=== PATIENT | male | born 1960 | race Caucasian/White ===

== ENCOUNTER 2016-03-25 17:09 | Inpatient (IN) | payer OTHER ==
[~2016-03-25] VITALS: Ht 180.3 cm; Wt 69.8 kg
[~2016-03-25 17:09] MED LIST: SPIR25TA PO
[2016-03-25 17:12] VITALS: BP 105/63; PULSE 101; RESP 20; TEMP 98.7; O2SAT 97
[2016-03-25] MEDS ORDERED: ONDANSETRON HCL 4 MG/2 ML VIAL IV PUSH ONE (17:30)
--- NOTE | 2016-03-25 17:40 | PD ---
HPI Chief Complaint: Edema Time Seen by Provider: 17:30 Travel History International Travel<30 days: No Contact w/Intl Traveler<30days: No Traveled to known affect area: No History of Present Illness HPI 55-year-old white male presents to emergency department by EMS for evaluation of dyspnea and increasing abdominal girth. The patient has a history of malignant ascites. He was just recently admitted to the hospital back on and was discharged on 03/14/16. The patient had a paracentesis which they removed 12 L of fluid. Fluid revealed mesothelial cells. Endoscopy/ colonoscopy revealed no source of a cytology. Patient returns today because of increasing shortness of breath and abdominal girth. He states that over the past week he has becoming increasingly short of breath, nauseous and has been vomiting. He states that he feels that if he were to have another paracentesis his symptoms would resolve. The underlying malignancy/source of his ascites is not quite been determined at this time. The patient states that he had been in his normal health up until 6 months ago when he started developing as ascites. He denies any alcohol, drug abuse or tobacco. He denies any fever or chills. No chest pain. No urinary symptoms. No stooling issues. No melena or hematochezia. PFSH Past Medical History Narrative Medical Malignant ascites, thrombocytopenia, history of renal failure, Anxiety: No Depression: No Cancer: No Cardiovascular Problems: No Endocrine: No Gastrointestinal Disorders: Yes (ASCITES) Genitourinary: No Immune Disorder: No Psychiatric: No Reproductive: No Respiratory: Yes Tetanus Vaccination: Unknown Past Surgical History Surgical History: No Previous Surgery Other Surgery: No Social History Alcohol Use: No (DENIES) Tobacco Use: Yes (1PPD) Substance Use: No Allergies-Medications (Allergen,Severity, Reaction): Coded Allergies: No Known Allergies (Unverified , 03/07/16) Reported Meds & Prescriptions Reported Meds & Active Scripts Active No Active Prescriptions or Reported Medications Review of Systems Except as stated in HPI: all other systems reviewed are Neg General / Constitutional: No: Fever, Chills Eyes: No: Blurred Vision, Photophobia HENT: No: Headaches, Neck Pain Cardiovascular: Positive: Tachycardia, No: Chest Pain or Discomfort Respiratory: Positive: Shortness of Breath, No: Cough Gastrointestinal: Positive: Nausea, Vomiting, Abdominal Pain, Indigestion, Loss of Appetite Genitourinary: No: Dysuria, Hematuria Musculoskeletal: No: Myalgias, Limited ROM Skin: No Rash, No Lesions Neurologic: Positive: Weakness, No: Headache Psychiatric: No: Anxiety, Suicidal Ideations Physical Exam Narrative GENERAL: Well-developed, well-nourished in no apparent distress. Nontoxic appearing. Chronically ill-appearing, emaciated, large protuberant abdomen HEAD: Normocephalic, atraumatic. EYES: Pupils equal round and reactive. Extraocular motions intact. No scleral icterus. No injection or drainage. ENT: Nose clear. Throat without erythema, tonsillar hypertrophy or exudate. Uvula midline. Airway patent. NECK: Trachea midline. Supple, nontender, moves head freely. No central bony tenderness or spasm. CARDIOVASCULAR: Regular tachycardic rate and rhythm without murmurs, gallops, or rubs. RESPIRATORY: Few scattered rhonchi. Decreased breath sounds at the lower bases. No Rales. GASTROINTESTINAL: Abdomen soft, distended and tense. Positive fluid wave. Unable to assess hepatosplenomegaly due to large amount of ascites. No guarding. EXTREMITIES: No clubbing, cyanosis. Positive +1-to pedal edema. No joint tenderness. BACK: Nontender without deformity. No flank tenderness. NEUROLOGICAL: Awake, alert and oriented x 3 .Cranial nerves grossly intact. Motor and sensory grossly within normal limits. Normal speech. Data Data Last Documented VS Vital Signs Date Time Temp Pulse Resp B/P Pulse Ox O2 Delivery O2 Flow Rate FiO2 03/25/16 17:12 98.7 101 20 105/63 97 Orders Electrocardiogram (03/25/16 17:18) Complete Blood Count With Diff (03/25/16 17:18) Comprehensive Metabolic Panel (03/25/16 17:18) B-Type Natriuretic Peptide (03/25/16 17:18) Prothrombin Time / Inr (Pt) (03/25/16 17:18) Act Partial Throm Time (Ptt) (03/25/16 17:18) Lipase (03/25/16 17:18) Ua Includes Microscopic (03/25/16 17:18) Magnesium (Mg) (03/25/16 17:18) Ammonia (03/25/16 17:18) Chest, Single Ap (03/25/16 17:18) Iv Access Insert/Monitor (03/25/16 17:18) Ondansetron Inj (Zofran Inj) (03/25/16 17:30) Calcium Gluconate Inj (Calcium Gluconate (03/25/16 18:30) Insulin Human Regular Inj (Novolin R Inj (03/25/16 18:30) Dextrose 50% In Shabana (Vial) Inj (D50w (Vi (03/25/16 18:30) Sodium Polysty Sulfate Liq (Kayexalate L (03/25/16 18:30) Ceftriaxone Inj (Rocephin Inj) (03/25/16 18:30) Lactic Acid (03/25/16 18:24) Ceftriaxone Inj (Rocephin Inj) (03/25/16 18:30) Admit To Inpatient (03/25/16 ) Vital Signs (Adult) Q4H (03/25/16 18:25) Activity Oob With Assistance (03/25/16 18:25) ^ Hi Lift Operator / Telemetry .CONTINUOUS (03/25/16 18:25) Intake + Output VIDYA.QSHIFT (03/25/16 18:25) Diet Heart Healthy (03/25/16 Dinner) Sodium Chloride 0.9% Flush (Ns Flush) (03/25/16 18:30) Sodium Chloride 0.9% Flush (Ns Flush) (03/25/16 21:00) Acetaminophen (Tylenol) (03/25/16 18:30) Ondansetron Inj (Zofran Inj) (03/25/16 18:30) Prochlorperazine Supp (Compazine Supp) (03/25/16 18:30) Bisacodyl Supp (Dulcolax Supp) (03/25/16 18:30) Magnesium Hydroxide Liq (Milk Of Magnesi (03/25/16 18:30) Sennosides (Senokot) (03/25/16 18:30) Basic Metabolic Panel (Bmp) (03/26/16 06:00) Complete Blood Count With Diff (03/26/16 06:00) Resp Oxygen Gerardo C Titrat 1-4 L (03/25/16 ) Pt Request For Service (03/25/16 18:25) Case Management Consult (03/25/16 18:25) Scd Bilateral/Knee High VIDYA.BID (03/25/16 18:25) Jef Bilateral/Knee High VIDYA.QSHIFT (03/25/16 18:25) Inpatient Certification (03/25/16 ) Admit Order (Ed Use Only) (03/25/16 18:26) Us Guided Abd Paracentesis (03/25/16 ) Peritoneal Cell Count + Diff (03/25/16 18:27) Total Protein Peritoneal Fluid (03/25/16 18:27) Albumin, Peritoneal Fluid (03/25/16 18:27) Glucose, Peritoneal Fluid (03/25/16 18:27) Ldh, Peritoneal Fluid (03/25/16 18:27) Amylase, Peritoneal Fluid (03/25/16 18:27) Fluid Culture And Gram Stain (03/25/16 18:27) Total Protein (03/25/16 18:27) Ldh Serum (03/25/16 18:27) Cbc No Diff, Includes Plts (03/25/16 18:27) Act Partial Throm Time (Ptt) (03/25/16 18:27) Labs Laboratory Tests Test 03/25/16 17:25 White Blood Count 18.8 TH/MM3 Red Blood Count 4.95 MIL/MM3 Hemoglobin 15.3 GM/DL Hematocrit 44.7 % Mean Corpuscular Volume 90.3 FL Mean Corpuscular Hemoglobin 30.9 PG Mean Corpuscular Hemoglobin 34.2 % Concent Red Cell Distribution Width 16.3 % Platelet Count 770 TH/MM3 Mean Platelet Volume 7.8 FL Neutrophils (%) (Auto) 95.0 % Lymphocytes (%) (Auto) 1.5 % Monocytes (%) (Auto) 3.2 % Eosinophils (%) (Auto) 0.0 % Basophils (%) (Auto) 0.3 % Neutrophils # (Auto) 17.8 TH/MM3 Lymphocytes # (Auto) 0.3 TH/MM3 Monocytes # (Auto) 0.6 TH/MM3 Eosinophils # (Auto) 0.0 TH/MM3 Basophils # (Auto) 0.0 TH/MM3 CBC Comment AUTO DIFF Differential Total Cells 100 Counted Neutrophils % (Manual) 88 % Band Neutrophils % 4 % Lymphocytes % 1 % Monocytes % 6 % Neutrophils # (Manual) 17.5 TH/MM3 Myelocytes 1 % Differential Comment FINAL DIFF MANUAL Platelet Estimate HIGH Platelet Morphology Comment NORMAL Red Cell Morphology Comment NORMAL Prothrombin Time 11.2 SEC Prothromb Time International 1.0 RATIO Ratio Activated Partial 29.4 SEC Thromboplast Time Sodium Level 126 MEQ/L Potassium Level 6.6 MEQ/L Chloride Level 90 MEQ/L Carbon Dioxide Level 20.5 MEQ/L Anion Gap 16 MEQ/L Blood Urea Nitrogen 71 MG/DL Creatinine 1.95 MG/DL Estimat Glomerular Filtration 36 ML/MIN Rate Random Glucose 58 MG/DL Calcium Level 8.1 MG/DL Magnesium Level 2.1 MG/DL Total Bilirubin 0.3 MG/DL Aspartate Amino Transf 18 U/L (AST/SGOT) Alanine Aminotransferase 16 U/L (ALT/SGPT) Alkaline Phosphatase 114 U/L Ammonia 11 MCMOL/L Total Protein 6.4 GM/DL Albumin 1.9 GM/DL Lipase 78 U/L [facility] Medical Decision Making Medical Screen Exam Complete: Yes Emergency Medical Condition: Yes Medical Record Reviewed: Yes Interpretation(s) Chest x-ray: Patient has an elevated right hemidiaphragm. There is no acute failure or infiltrate. Positive volume loss. Laboratory Tests Test 03/25/16 17:25 White Blood Count 18.8 TH/MM3 Red Blood Count 4.95 MIL/MM3 Hemoglobin 15.3 GM/DL Hematocrit 44.7 % Mean Corpuscular Volume 90.3 FL Mean Corpuscular Hemoglobin 30.9 PG Mean Corpuscular Hemoglobin 34.2 % Concent Red Cell Distribution Width 16.3 % Platelet Count 770 TH/MM3 Mean Platelet Volume 7.8 FL Neutrophils (%) (Auto) 95.0 % Lymphocytes (%) (Auto) 1.5 % Monocytes (%) (Auto) 3.2 % Eosinophils (%) (Auto) 0.0 % Basophils (%) (Auto) 0.3 % Neutrophils # (Auto) 17.8 TH/MM3 Lymphocytes # (Auto) 0.3 TH/MM3 Monocytes # (Auto) 0.6 TH/MM3 Eosinophils # (Auto) 0.0 TH/MM3 Basophils # (Auto) 0.0 TH/MM3 CBC Comment AUTO DIFF Differential Total Cells 100 Counted Neutrophils % (Manual) 88 % Band Neutrophils % 4 % Lymphocytes % 1 % Monocytes % 6 % Neutrophils # (Manual) 17.5 TH/MM3 Myelocytes 1 % Differential Comment FINAL DIFF MANUAL Platelet Estimate HIGH Platelet Morphology Comment NORMAL Red Cell Morphology Comment NORMAL Prothrombin Time 11.2 SEC Prothromb Time International 1.0 RATIO Ratio Activated Partial 29.4 SEC Thromboplast Time Sodium Level 126 MEQ/L Potassium Level 6.6 MEQ/L Chloride Level 90 MEQ/L Carbon Dioxide Level 20.5 MEQ/L Anion Gap 16 MEQ/L Blood Urea Nitrogen 71 MG/DL Creatinine 1.95 MG/DL Estimat Glomerular Filtration 36 ML/MIN Rate Random Glucose 58 MG/DL Calcium Level 8.1 MG/DL Magnesium Level 2.1 MG/DL Total Bilirubin 0.3 MG/DL Aspartate Amino Transf 18 U/L (AST/SGOT) Alanine Aminotransferase 16 U/L (ALT/SGPT) Alkaline Phosphatase 114 U/L Ammonia 11 MCMOL/L Total Protein 6.4 GM/DL Albumin 1.9 GM/DL Lipase 78 U/L Differential Diagnosis MDM: High Differential diagnosis: Bowel obstruction, ascites, liver failure, renal failure , electrolyte abnormality, pneumonia, pancreatitis, UTI Narrative Course IV access is obtained. Routine laboratory tests sent for analysis. Patient is on 2 L of O2 to maintain a sat of 95. Patient's chart has been reviewed. Patient's potassium 6.6. He is given 1 amp of calcium gluconate IV, 10 units of regular insulin IV, 25 g of glucose IV, 15 mL's of Kayexalate by mouth. The case has been discussed with Dr. Zhao who has agreed to full admit the patient to [facility] telemetry. She is aware of the laboratory abnormalities as well as concern for potential peritonitis. She has requested that the patient be started on Rocephin 1 g. She will also like a venous lactate. We have discussed the patient's criteria for sepsis but he does not have the typical etiology of sepsis. We will hold off on fluid bolus at this time. I suspect fluid restriction would be most appropriate for this treatment. This is dyspnea, hyperkalemia, acute renal failure, ascites Diagnosis Primary Impression: Dyspnea Qualified Code: R06.02 - Shortness of breath Additional Impressions: Hyperkalemia Ascites Qualified Code: R18.0 - Malignant ascites Hyponatremia CHELY (acute kidney injury) Admitting Information Admitting Physician Requests: Admit Scripts No Active Prescriptions or Reported MedPerry Cosby Mar 25, 2016 17:40
[2016-03-25 17:41] LABS: AUTOMATED NEUTROPHIL # 17.8 TH/MM3 (1.8-7.7); BASOPHIL % 0.3 % (0.0-2.0); HEMATOCRIT 44.7 % (39.0-51.0); LYMPH % 1.5 % (9.0-44.0); LYMPHOCYTE # 0.3 TH/MM3 (1.0-4.8); MEAN CELL VOLUME 90.3 FL (80.0-100.0); MEAN CORPUSCULAR HEMOGLOBIN 30.9 PG (27.0-34.0); MEAN CORPUSCULAR HGB CONC 34.2 % (32.0-36.0); MONO % 3.2 % (0.0-8.0); PLATELET COUNT 770 TH/MM3 (150-450); RED BLOOD COUNT 4.95 MIL/MM3 (4.50-5.90); RED CELL DISTRIBUTION WIDTH 16.3 % (11.6-17.2); WHITE BLOOD COUNT 18.8 TH/MM3 (4.0-11.0)
[2016-03-25 17:44] LABS: HEMO FLAGS AUTO DIFF
[2016-03-25 17:48] LABS: APTT (PATIENT) 29.4 SEC (24.3-30.1); PROTHROMBIN TIME - PATIENT 11.2 SEC (9.8-11.6)
[2016-03-25 18:11] LABS: BANDS 4 % (0-6); MYELOCYTES 1 % (0-0); NEUTROPHIL # MANUAL DIFF 17.5 TH/MM3 (1.8-7.7); POLYS (SEG NEUTROPHILS) 88 % (16-70); WBC DIFF SAMPLE 100
[2016-03-25 18:12] LABS: PLATELET ESTIMATE SMEAR HIGH (NORMAL); PLATELET MORPHOLOGY NORMAL (NORMAL); SCAN/DIFF FINAL DIFF MANUAL
[2016-03-25 18:13] LABS: ALKALINE PHOSPHATASE 114 U/L (45-117); ALT (GPT) 16 U/L (12-78); ANION GAP 16 MEQ/L (5-15); AST (GOT) 18 U/L (15-37); BICARBONATE 20.5 MEQ/L (21.0-32.0); BLOOD UREA NITROGEN 71 MG/DL (7-18); CHLORIDE 90 MEQ/L (98-107); GLOMERULAR FILTRATION RATE 36 ML/MIN (>89); MAGNESIUM 2.1 MG/DL (1.5-2.5); SODIUM (NA) 126 MEQ/L (136-145); TOTAL BILIRUBIN ADULT 0.3 MG/DL (0.2-1.0)
[2016-03-25 18:16] LABS: POTASSIUM 6.6 MEQ/L (3.5-5.1)
[2016-03-25] MEDS ORDERED: ACETAMINOPHEN 325 MG TAB PO PRN (18:30)
[2016-03-25] MEDS ORDERED: INSULIN HUMAN REGULAR 1,000 UNITS/10 ML VIAL IV PUSH ONE ×2 (18:30→22:30)
[2016-03-25] MEDS ORDERED: PROCHLORPERAZINE 25 MG SUPP PR PRN (18:30)
[2016-03-25] MEDS ORDERED: MAGNESIUM HYDROXIDE SUSP 30 ML CUP PO PRN (18:30)
[2016-03-25] MEDS ORDERED: SODIUM CHLORIDE 0.9% FLUSH 5 ML FLUSH FLUSH PRN (18:30)
[2016-03-25] MEDS ORDERED: CALCIUM GLUCONATE 10% 1 GM/10 ML VIAL IV PUSH ONE (18:30)
[2016-03-25] MEDS ORDERED: cefTRIAXone INJ 1,000 MG in SODIUM CHLORIDE 0.9% INJ 100 ML IV ONE (18:30)
[2016-03-25] MEDS ORDERED: BISACODYL 10 MG SUPP PR PRN (18:30)
[2016-03-25] MEDS ORDERED: SENNOSIDES 8.6 MG TAB PO PRN (18:30)
[2016-03-25] MEDS ORDERED: DEXTROSE 50% IN WATER 50 ML VIAL(D50) IV PUSH ONE ×2 (18:30→22:30)
[2016-03-25] MEDS ORDERED: SODIUM POLYSTYRENE SULFONATE SUSP 15 GM/60 ML CUP PO ONE (18:30)
--- NOTE | 2016-03-25 18:34 | RADRPT ---
EXAM DATE/TIME: 03/25/2016 17:34 [facility] COMPARISON: CT THORAX W/O CONTRAST, March 09, 2016, 0:22. CHEST SINGLE AP, March 08, 2016, 10:14. INDICATIONS : Chest and abdominal pain. MEDICAL HISTORY : Ascites. Abdominal hernia. SURGICAL HISTORY : Paracentesis. Thoracentesis. ENCOUNTER: Initial ACUITY: 4 - 6 days PAIN SCORE: 10/10 LOCATION: Bilateral lower chest FINDINGS: There is improvement in the aeration of the right lung base and previously seen consolidation has bas ically resolved. Minimal infiltrate remains. The rest of the examination has not significantly change d. CONCLUSION: Almost complete resolution of the previously seen the right lung base consolidation. Gabrielle Tipton MD on March 25, 2016 at 18:30 Board Certified Radiologist. This report was verified electronically.
[2016-03-25] MEDS ORDERED: MORPHINE SULFATE 4 MG/ML INJ IV PUSH ONE (18:45)
[2016-03-25] MEDS: SODIUM CHLORIDE 0.9% FLUSH 5 ML FLUSH FLUSH SCH (19:31)
[2016-03-25 19:33] VITALS: BP 77/52; PULSE 128; RESP 20; TEMP 98; O2SAT 96
[2016-03-25] MEDS: ONDANSETRON HCL 4 MG/2 ML VIAL IVP PRN (20:44)
[2016-03-25] MEDS ORDERED: VANCOMYCIN INJ 1,050 MG in SODIUM CHLOR 0.9% 250 ML INJ 250 ML IV SCH (20:45)
[2016-03-25] MEDS ORDERED: Vancomycin Consult Pharmacy 1 EA OTHER SCH (20:45)
[2016-03-25] MEDS ORDERED: SODIUM CHLOR 0.9% 250 ML INJ 250 ML IV ONE (20:45)
[2016-03-25] MEDS ORDERED: SODIUM CHLOR 0.9% 1000 ML INJ 1,000 ML IV SCH (20:45)
[2016-03-25] MEDS ORDERED: ALBUMIN HUMAN 25% 25 GM/100 ML BAGP IV ONE (21:00)
[2016-03-25 21:06] VITALS: O2SAT 96
[2016-03-25 21:15] VITALS: BP 96/71; PULSE 108; RESP 18; O2SAT 97
--- NOTE | 2016-03-25 21:36 | HHI.HP ---
[facility] Service [facility] Primary Care Physician No Primary Care Physician Admission Diagnosis dyspnea, hyperkalemia,ARF, ascites Diagnoses: (1) Severe sepsis (2) Hyponatremia (3) Hyperkalemia (4) Increased anion gap metabolic acidosis (5) CHELY (acute kidney injury) (6) Thrombocytosis (7) Hypoglycemia (8) Severe protein-calorie malnutrition (9) Hematemesis Chief Complaint: abdominal distention and shortness of breath Travel History International Travel<30 Days: No Contact w/Intl Traveler <30 Da: No Traveled to Known Affected Are: No History of Present Illness This is a 55-year-old male with past medical history of ascites for which he has gotten multiple ultrasound-guided paracentesis with drainage of large amount of ascites for about the past 6 months. He was just discharged March 14 (admitted on 03/07) from the hospital where a diagnostic paracentesis was performed showing atypical cells which appeared to represent reactive mesothelial cells. The patient presented to the emergency department via EMS complaining of shortness of breath and increasing abdominal girth. His symptoms have been getting progressively worse over the last week and haven't been accompanied by nausea and vomiting. He is complaining of severe pain but states it is located in his back in the middle region that is associated with increasing abdominal girth. The underlying source of his malignant ascites has not been determined yet. While visiting the patient, he had an episode of vomiting when small amount of dark blood noted in his emesis. He complains of nausea, vomiting, back pain, severe abdominal distention accompanied by shortness of breath. He denies fever and also denies diarrhea though the nurse in the ER tells us that he had episodes of diarrhea since arriving here. He is significantly hypotensive in the ER with a blood pressure of 77/52 requiring IV albumin and fluids. He is also tachycardic and WBC is elevated at 18.8 with neutrophilia. Lactic acid elevated at 3.1. Potassium 6.6 on admission and sodium is low at 126. Anion gap is elevated at 16 and he shows acute kidney injury with BUN of 71, creatinine 1.95, estimated GFR 36. Hypoglycemia noted with glucose initially 58 and 48 on repeat BMP. Patient BNP 1846. Review of Systems Constitutional: DENIES: Fever Respiratory: COMPLAINS OF: Shortness of breath, DENIES: Cough Cardiovascular: COMPLAINS OF: Dyspnea on Exertion, Lower Extremity Edema Gastrointestinal: COMPLAINS OF: Diarrhea (patient denies, nurses report he's had diarrhea in ER today), Nausea, Vomiting Musculoskeletal: COMPLAINS OF: Muscle aches, Back pain Other GENITOURINARY: Diminished urinary output, no dysuria All systems reviewed and are otherwise negative . Past Family Social History Past Medical History Malignant ascites . Past Surgical History Multiple ultrasound-guided paracentesis . Reported Medications Reported Meds & Active Scripts Active No Active Prescriptions or Reported Medications Allergies: Coded Allergies: No Known Allergies (Unverified , 03/07/16) Active Ordered Medications Current Medications Ondansetron HCl (Zofran Inj) 4 mg ONCE ONCE IV PUSH Last administered on 03/25at 17:37; Start 03/25/16 at 17:30; Stop 03/25/16 at 17:31; Status DC Calcium Gluconate (Calcium Gluconate Inj) 1 gm ONCE ONCE IV PUSH Last administered on 03/25/16at 18:30; Start 03/25/16 at 18:30; Stop 03/25/16 at 18 :31; Status DC Insulin Human Regular (NovoLIN R INJ) 10 units ONCE ONCE IV PUSH Last administered on 03/25/16at 18:29; Start 03/25/16 at 18:30; Stop 03/25/16 at 18 :31; Status DC Dextrose (D50w (Vial) Inj) 25 ml ONCE ONCE IV PUSH Last administered on at 18:30; Start 03/25/16 at 18:30; Stop 03/25/16 at 18:31; Status DC Sodium Polystyrene Sulfonate 15 gm 15 gm ONCE ONCE PO Last administered on at 18:30; Start 03/25/16 at 18:30; Stop 03/25/16 at 18:31; Status DC Ceftriaxone Sodium 2000 mg/ Sodium Chloride 100 ml @ 200 mls/hr Q12H IV ; Start 03/26/16 at 06:00 Ceftriaxone Sodium/Sodium Chloride (Rocephin Inj/NS Inj) 100 ml @ 200 mls/hr ONCE ONCE IV Last administered on 03/25/16at 19:20; Start 03/25/16 at 18:30; Stop 03/25/16 at 18:59; Status DC IV Flush (NS Flush) 2 ml UNSCH PRN FLUSH FLUSH AFTER USING IV ACCESS; Start at 18:30 IV Flush (NS Flush) 2 ml BID FLUSH Last administered on 03/25/16at 19:31; Start 03/25/16 at 21:00 Acetaminophen (Tylenol) 650 mg Q4H PRN PO TEMP > 100.4; Start 03/25/16 at 18: 30 Ondansetron HCl (Zofran Inj) 4 mg Q6H PRN IVP NAUSEA OR VOMITING Last administered on 03/25/16at 20:44; Start 03/25/16 at 18:30 Prochlorperazine (Compazine Supp) 25 mg Q12H PRN [place] NAUSEA OR VOMITING; Start 03/25/16 at 18:30 Bisacodyl (Dulcolax Supp) 10 mg DAILY PRN [place] CONSTIPATION; Start 03/25/16 at 18:30 Magnesium Hydroxide (Milk Of Magntristan Liq) 30 ml Q12H PRN PO CONSTIPATION; Start 03/25/16 at 18:30 Sennosides (Senokot) 17.2 mg Q12H PRN PO CONSTIPATION; Start 03/25/16 at 18:30 Morphine Sulfate (Morphine Inj) 4 mg ONCE ONCE IV PUSH Last administered on at 19:21; Start 03/25/16 at 18:45; Stop 03/25/16 at 18:46; Status DC Albumin Human 50 gm 50 gm ONCE ONCE IV Last administered on 03/25/16at 21:14; Start 03/25/16 at 21:00; Stop 03/25/16 at 21:01; Status DC Sodium Chloride 250 ml @ 250 mls/hr BOLUS ONCE IV Last administered on at 21:14; Start 03/25/16 at 20:45; Stop 03/25/16 at 21:44; Status DC Sodium Chloride 1,000 ml @ 84 mls/hr [id number] IV Last administered on at 21:14; Start 03/25/16 at 20:45 Vancomycin HCl 1050 mg/Sodium Chloride 260.5 ml @ 250 mls/hr Q12H IV ; Start 03/25/16 at 20:45; Status UNV Pharmacy Profile Note 0 ml @ 0 mls/hr UNSCH OTHER ; Start 03/25/16 at 20:45 Vancomycin HCl/ Sodium Chloride (Vancomycin Inj/ NS 250 ml Inj) 250 ml @ 250 mls/hr Q24H IV Last administered on 03/25/16at 21:54; Start 03/25/16 at 21:00 Miscellaneous Information SPECIFIC LAB TO BE ... ONCE ONCE XX ; Start 03/28 at 20:45; Stop 03/28/16 at 20:46 . Family History Father in MVA Mother with hypertension Denies family history of cancer, diabetes, or heart disease Social History Tobacco: Still smokes Alcohol: Denies Illicit Drugs: Denies Physical Exam Vital Signs Vital Signs Date Time Temp Pulse Resp B/P Pulse Ox O2 Delivery O2 Flow Rate FiO2 03/25/16 21:15 108 18 96/71 97 Nasal Cannula 3 03/25/16 21:06 96 Nasal Cannula 3.00 03/25/16 19:33 98.0 128 20 77/52 96 Nasal Cannula 3 03/25/16 17:12 98.7 101 20 105/63 97 Physical Exam GENERAL: This is a patient who is severely cachectic with bitemporal wasting. SKIN: No rashes, ecchymoses or lesions. Cool and dry. HEAD: Atraumatic. Normocephalic. EYES: No scleral icterus. No injection or drainage. ENT: Nose without bleeding, purulent drainage. NECK: Trachea midline. No JVD or lymphadenopathy. CARDIOVASCULAR: Regular rate and rhythm without murmurs, gallops, or rubs. Dependent edema noted right paraspinal thoracic and lumbar areas. 2-3+ edema ankles and feet. RESPIRATORY: No wheezes, rales. Right upper lobe with expiratory rhonchi; otherwise lungs clear to auscultation in other giles. GASTROINTESTINAL: Abdomen mildly tender with palpation, significantly distended. No guarding. Vomiting with dark blood noted in the emesis while at bedside. MUSCULOSKELETAL: Extremities without clubbing, cyanosis. No calf tenderness. Back pain palpable paraspinal around the level of T11. NEUROLOGICAL: Awake and alert. Motor and sensory grossly within normal limits. Normal speech. . Laboratory Laboratory Tests Test 03/25/16 03/25/16 17:25 19:15 White Blood Count 18.8 Red Blood Count 4.95 Hemoglobin 15.3 Hematocrit 44.7 Mean Corpuscular Volume 90.3 Mean Corpuscular Hemoglobin 30.9 Mean Corpuscular Hemoglobin 34.2 Concent Red Cell Distribution Width 16.3 Platelet Count 770 Mean Platelet Volume 7.8 Neutrophils (%) (Auto) 95.0 Lymphocytes (%) (Auto) 1.5 Monocytes (%) (Auto) 3.2 Eosinophils (%) (Auto) 0.0 Basophils (%) (Auto) 0.3 Neutrophils # (Auto) 17.8 Lymphocytes # (Auto) 0.3 Monocytes # (Auto) 0.6 Eosinophils # (Auto) 0.0 Basophils # (Auto) 0.0 CBC Comment AUTO DIFF Differential Total Cells 100 Counted Neutrophils % (Manual) 88 Band Neutrophils % 4 Lymphocytes % 1 Monocytes % 6 Neutrophils # (Manual) 17.5 Myelocytes 1 Differential Comment FINAL DIFF MANUAL Platelet Estimate HIGH Platelet Morphology Comment NORMAL Red Cell Morphology Comment NORMAL Prothrombin Time 11.2 Prothromb Time International 1.0 Ratio Activated Partial 29.4 Thromboplast Time Sodium Level 126 Potassium Level 6.6 Chloride Level 90 Carbon Dioxide Level 20.5 Anion Gap 16 Blood Urea Nitrogen 71 Creatinine 1.95 Estimat Glomerular Filtration 36 Rate Random Glucose 58 Calcium Level 8.1 Magnesium Level 2.1 Total Bilirubin 0.3 Aspartate Amino Transf 18 (AST/SGOT) Alanine Aminotransferase 16 (ALT/SGPT) Alkaline Phosphatase 114 Ammonia 11 B-Type Natriuretic Peptide 1846 Total Protein 6.4 Albumin 1.9 Lipase 78 Lactic Acid Level 3.1 Date/Time Procedure Status Source Growth 03/25/16 19:18 Aerobic Blood Culture Received Blood Peripheral Pending 03/25/16 19:18 Anaerobic Blood Culture Received Blood Peripheral Pending Result Diagram: 03/26/16 1735 03/27/16 1556 Imaging Last Impressions Chest X-Ray 03/25/16 1718 Signed Impressions: Service Date/Time: Friday, March 25, 2016 17:34 - CONCLUSION: Almost complete resolution of the previously seen the right lung base consolidation. Gabrielle Tipton MD Assessment and Plan Problem List: (1) Severe sepsis ICD Code: A41.9 Status: Acute (2) Hyponatremia ICD Code: E87.1 Status: Acute (3) Hyperkalemia ICD Code: E87.5 Status: Resolved (4) Increased anion gap metabolic acidosis ICD Code: E87.2 Status: Acute (5) CHELY (acute kidney injury) ICD Code: N17.9 Status: Acute (6) Thrombocytosis ICD Code: D47.3 Status: Acute (7) Hypoglycemia ICD Code: E16.2 Status: Acute (8) Severe protein-calorie malnutrition ICD Code: E43 Status: Acute (9) Hematemesis ICD Code: K92.0 Status: Acute Assessment and Plan This is a 55-year-old male with past medical history of ascites for which he has gotten multiple ultrasound-guided paracentesis with drainage of large amount of ascites for about the past 6 months. He is here for worsening ascites and shortness of breath and has significant hypotension in the ER with a blood pressure of 77/52 requiring IV albumin and fluids. He is also tachycardic and WBC is elevated at 18.8 with neutrophilia. Lactic acid elevated at 3.1. Potassium 6.6 on admission and sodium is low at 126. Anion gap is elevated at 16 and he shows acute kidney injury with BUN of 71, creatinine 1.95, estimated GFR 36. Hypoglycemia noted with glucose initially 58 and 48 on repeat BMP. Patient BNP 1846. He is notably cachectic with bitemporal wasting and has a low albumin 1.9. Severe sepsis - UTI vs SBP - Vancomycin IV with pharmacy consult for assistance with therapeutic monitoring and dosing - Rocephin 2 g IV every 12 hours - Blood cultures 2 and urine culture pending; follow results - continuous cardiac telemetry - Albumin 50 g IV 1 dose for severe hypotension - D5 normal saline at 100 cc per hour - Check C. difficile toxin - Lactic acid sepsis protocol Ascites - Ultrasound-guided abdominal paracentesis when stabilized Hyponatremia - initial sodium 126 - D5NS at 100 cc/hr - repeat sodium 128 - recheck BMP will be done at 2325; follow results Hyperkalemia - 6.6 on admission - Given D50, insulin, and calcium gluconate in the ER - Repeat potassium 6.1 - D50- 50 cc IV push, and regular insulin 10 units IV - Repeat BMP at 2325 Increased anion gap metabolic acidosis - Anion gap went from 1615 and ER - We'll continue to monitor with repeat BMP in Acute kidney Insufficiency - IV fluid hydration with D5 normal saline at 100 cc/h - Avoid nephrotoxins - Repeat BMP and follow trends Thrombocytosis, most likely reactive - Platelet count 770,000 on admission - Repeat CBC in a.m. and follow results Hypoglycemia - D50 IV one full vial - Recheck BMP for glucose level in 1 hour Severe protein calorie malnutrition - Consult dietitian to assist with recommendations for dietary intake Hematemesis - We'll check serial H&H every 6 hours and follow results - Transfuse if needed DVT prophylaxis - SCDs - chemoprophylaxis contraindicated; hematemesis Written by Christina Sharpe, acting as scribe for Dr. Meza on 03/25/16 at 2100. Patient is critically ill with multi-organ failure requiring critical care management to prevent loss of life. Critical care time 65 minutes. . 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 Physician Certification 2 Midnight Certification Type: Admission for Inpatient Services Order for Inpatient Services The services are ordered in accordance with Medicare regulations or non- Medicare payer requirements, as applicable. In the case of services not specified as inpatient-only, they are appropriately provided as inpatient services in accordance with the 2-midnight benchmark. Estimated LOS (days): 3 days is the estimated time the patient will need to remain in the hospital, assuming treatment plan goals are met and no additional complications. Post-Hospital Plan: Not yet determined Attending Statement The documentation accurately reflects the work performed [id number] by me on 03/25/16 at 2100. Christina Sharpe Mar 25, 2016 21:36 Rui Peters MD Mar 27, 2016 23:43
[2016-03-25] MEDS: VANCOMYCIN 1,000 MG/NS 250 ML IV SCH ×2 (21:54)
[2016-03-25 22:01] LABS: BACTERIA, URINE OCC /hpf; BLOOD, URINE SMALL (NEG); COMMENT (UR) CULTURE INDICATED; CULTURE IF INDICATED CULTURE INDICATED; GLUCOSE,URINE NEG (NEG); HYALINE CAST, URINE 42 /lpf (RARE); KETONE, URINE NEG (NEG); MUCUS URINE FEW /lpf (OCC); NITRITE,URINE NEG (NEG); SQUAMOUS EPITHELIAL CELL URINE 4 /hpf (0-5); URINE COLOR YELLOW (YELLW/STRAW)
[2016-03-25 22:19] LABS: BICARBONATE 22.4 MEQ/L (21.0-32.0); POTASSIUM 6.1 MEQ/L (3.5-5.1)
[2016-03-25] MEDS ORDERED: DEXT 5%-NACL 0.9% 1000 ML INJ 1,000 ML IV SCH (22:30)
[2016-03-25] MEDS: DEXT 5%-NACL 0.9% 1000 ML INJ 1,000 ML IV SCH (22:43)
[2016-03-25 22:49] VITALS: BP 99/77; PULSE 102; RESP 18; O2SAT 98
[2016-03-25 23:26] LABS: HEMATOCRIT 32.5 % (39.0-51.0); REVIEW FLAG FINAL
[2016-03-25] MEDS ORDERED: CHLORHEXIDINE GLUCONATE 2 % 1 PACK (2 CLOTHS)(extra cloths) TOP PRN (23:30)
[2016-03-25 23:51] VITALS: BP 96/61; PULSE 100; RESP 20; TEMP 97.7; O2SAT 99
[2016-03-25 23:58] LABS: C. DIFF EPI 027 PRESUMPTIVE NEGATIVE (NEGATIVE); C. DIFF TOXIN PCR NEGATIVE (NEGATIVE)
[2016-03-26] VITALS (15 sets, daily range): BP systolic 72–87; BP diastolic 52–66; PULSE 79–109; RESP 13–23; TEMP 97–97.7; O2SAT 96–100
[2016-03-26] MEDS ORDERED: ALBUMIN HUMAN 25% 25 GM/100 ML BAGP IV ONE (00:30)
[2016-03-26] MEDS ORDERED: SODIUM CHLORID 0.9% 500 ML INJ 500 ML IV ONE (00:30)
[2016-03-26] MEDS: CHLORHEXIDINE GLUCONATE 2 % 1 PACK (2 CLOTHS)(taper/protocol) TOP SCH (04:00)
[2016-03-26] MEDS: cefTRIAXone INJ 2,000 MG in SODIUM CHLORIDE 0.9% INJ 100 ML IV SCH ×2 (06:00→17:41)
[2016-03-26 06:28] LABS: AUTOMATED NEUTROPHIL # 10.2 TH/MM3 (1.8-7.7); BASOPHIL % 0.3 % (0.0-2.0); HEMATOCRIT 32.2 % (39.0-51.0); HEMO FLAGS DIFF FINAL; LYMPH % 3.2 % (9.0-44.0); LYMPHOCYTE # 0.4 TH/MM3 (1.0-4.8); MEAN CELL VOLUME 91.9 FL (80.0-100.0); MEAN CORPUSCULAR HEMOGLOBIN 30.2 PG (27.0-34.0); MEAN CORPUSCULAR HGB CONC 32.9 % (32.0-36.0); MONO % 4.1 % (0.0-8.0); NEUT % 92.4 % (16.0-70.0); PLATELET COUNT 463 TH/MM3 (150-450); RED BLOOD COUNT 3.51 MIL/MM3 (4.50-5.90); RED CELL DISTRIBUTION WIDTH 16.4 % (11.6-17.2)
[2016-03-26 06:50] LABS: HEMATOCRIT 32.3 % (39.0-51.0); REVIEW FLAG FINAL
[2016-03-26 07:22] LABS: BICARBONATE 20.6 MEQ/L (21.0-32.0); POTASSIUM 4.6 MEQ/L (3.5-5.1)
[2016-03-26 07:52] LABS: CALCIUM-PROTEIN CORRECTED 8.4 MG/DL (8.5-10.1)
--- NOTE | 2016-03-26 07:56 | HHI.PR ---
Subjective Remarks Went for paracentesis. Seen after paracenthesis. Says he is not sob and says he feels better after fluid removal. Says lyon sno abdominal pain. No fevers or chills. Feels tired. Not eating much. Objective Vitals Vital Signs Date Time Temp Pulse Resp B/P Pulse Ox O2 Delivery O2 Flow Rate FiO2 03/26/16 06:00 91 03/26/16 05:00 97.7 90 18 84/66 96 03/26/16 05:00 96 Nasal Cannula 3.00 03/26/16 04:00 90 03/26/16 02:00 87 03/26/16 00:00 104 03/26/16 00:00 97.7 104 13 72/53 98 03/25/16 23:59 99 Nasal Cannula 3.00 03/25/16 23:51 97.7 100 20 96/61 99 03/25/16 22:49 102 18 99/77 98 Nasal Cannula 2 03/25/16 21:15 108 18 96/71 97 Nasal Cannula 3 03/25/16 21:06 96 Nasal Cannula 3.00 03/25/16 19:33 98.0 128 20 77/52 96 Nasal Cannula 3 03/25/16 17:12 98.7 101 20 105/63 97 I/O 03/25/16 03/25/16 03/25/16 03/26/16 03/26/16 03/26/16 06:59 14:59 22:59 06:59 14:59 22:59 Intake Total 1726 ml Output Total 225 ml Balance 1501 ml Intake IV Total 1526 ml Albumin 200 ml Output Urine Total 225 ml # Bowel Movements 1 Result Diagram: 03/26/16 0526 03/26/16 0526 Imaging Last Impressions Chest X-Ray 03/25/16 1718 Signed Impressions: Service Date/Time: Friday, March 25, 2016 17:34 - CONCLUSION: Almost complete resolution of the previously seen the right lung base consolidation. Gabrielle Tipton MD Objective Remarks GENERAL: This is a patient who is severely cachectic with bitemporal wasting. SKIN: Bilateral buttocks pressure ulcers present on admission. Cool and dry. HEAD: Atraumatic. Normocephalic.Bitemporal waisting. EYES: No scleral icterus. No injection or drainage. ENT: Nose without bleeding, purulent drainage. NECK: Trachea midline. No JVD or lymphadenopathy. CARDIOVASCULAR: Regular rate and rhythm without murmurs, gallops, or rubs. Dependent edema noted right paraspinal thoracic and lumbar areas. 2-3+ edema ankles and feet. RESPIRATORY: No wheezes, rales. Right upper lobe with expiratory rhonchi; otherwise lungs clear to auscultation in other giles. GASTROINTESTINAL: Abdomen mildly tender with palpation, less distended. No guarding. MUSCULOSKELETAL: Extremities without clubbing, cyanosis. No calf tenderness. Back pain palpable paraspinal around the level of T11. NEUROLOGICAL: Awake and alert. Motor and sensory grossly within normal limits. Normal speech. A/P Problem List: (1) Severe sepsis ICD Code: A41.9 Status: Acute (2) Hyponatremia ICD Code: E87.1 Status: Acute (3) Hyperkalemia ICD Code: E87.5 Status: Resolved (4) Increased anion gap metabolic acidosis ICD Code: E87.2 Status: Acute (5) CHELY (acute kidney injury) ICD Code: N17.9 Status: Acute (6) Thrombocytosis ICD Code: D47.3 Status: Acute (7) Hypoglycemia ICD Code: E16.2 Status: Acute (8) Severe protein-calorie malnutrition ICD Code: E43 Status: Acute (9) Hematemesis ICD Code: K92.0 Status: Acute Assessment and Plan This is a 55-year-old male with past medical history of ascites for which he has gotten multiple ultrasound-guided paracentesis with drainage of large amount of ascites for about the past 6 months. He is here for worsening ascites and shortness of breath and had significant hypotension in the ER with a blood pressure of 77/52 requiring IV albumin and fluids. He is also tachycardic and WBC is elevated at 18.8 with neutrophilia. Lactic acid elevated at 3.1. Potassium 6.6 on admission and sodium is low at 126. Anion gap is elevated at 16 and he shows acute kidney injury with BUN of 71, creatinine 1.95, estimated GFR 36. Hypoglycemia noted with glucose initially 58 and 48 on repeat BMP. Patient BNP 1846. He is notably cachectic with bitemporal wasting and has a low albumin 1.9. Severe sepsis - UTI vs SBP Buttocks with pressure wounds, present on admission . Consult wound care nurse - Vancomycin IV with pharmacy consult for assistance with therapeutic monitoring and dosing - Rocephin 2 g IV every 12 hours - Blood cultures 2 and urine culture pending; follow results - continuous cardiac telemetry - Albumin 50 g IV 1 dose for severe hypotension 03/25 - Start Albumin 25 g IV bid 03/26 - D5 normal saline at 100 cc per hour.Monitor BS. Patient is not eating much. 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 difficile toxin - Lactic acid sepsis protocol Ascites - Ultrasound-guided abdominal paracentesis when stabilized Hyponatremia - initial sodium 126 - D5NS at 100 cc/hr - repeat sodium 128 - recheck BMP will be done at 2325; follow results Hyperkalemia - 6.6 on admission - Given D50, insulin, and calcium gluconate in the ER - Repeat potassium 6.1 - D50- 50 cc IV push, and regular insulin 10 units IV - Repeat BMP at 2325 Increased anion gap metabolic acidosis - Anion gap went from 1615 and ER - We'll continue to monitor with repeat BMP Acute kidney Insufficiency - IV fluid hydration with D5 normal saline at 100 cc/h - Avoid nephrotoxins - Repeat BMP and follow trends Thrombocytosis, most likely reactive - Platelet count 770,000 on admission - Repeat CBC in a.m. and follow results Hypoglycemia - D50 IV one full vial - Recheck BMP for glucose level in 1 hour Severe protein calorie malnutrition - Consult dietitian to assist with recommendations for dietary intake Hematemesis - We'll check serial H&H every 6 hours and follow results - Transfuse if needed DVT prophylaxis - SCDs - chemoprophylaxis contraindicated; hematemesis Discussed Condition With Patient, nurse Chiquita Zhao MD Mar 26, 2016 07:56
[2016-03-26] MEDS: SODIUM CHLORIDE 0.9% FLUSH 5 ML FLUSH FLUSH SCH ×2 (08:53→19:49)
[2016-03-26] MEDS: ONDANSETRON HCL 4 MG/2 ML VIAL IVP PRN (08:53)
[2016-03-26] MEDS: CALCIUM CARBONATE 500 MG CHEWABLE TAB CHEW SCH ×3 (08:57→21:00)
[2016-03-26] MEDS: DEXT 5%-NACL 0.9% 1000 ML INJ 1,000 ML IV SCH ×2 (08:57→19:46)
[2016-03-26] MEDS: DIPHENHY/LIDO/MAG/ALUM MOUTHWASH (Adult/Peds) 60 ML BTL SWISH-SWAL SCH ×3 (10:08→21:00)
[2016-03-26] MEDS: ALBUMIN HUMAN 25% 25 GM/100 ML BAGP IV SCH ×2 (10:08→21:28)
[2016-03-26 13:14] LABS: HEMATOCRIT 30.1 % (39.0-51.0); REVIEW FLAG FINAL
--- NOTE | 2016-03-26 15:36 | RADRPT ---
EXAM DATE/TIME: 03/26/2016 13:08 [facility] COMPARISON: US GUIDED ABD PARACENTESIS, March 13, 2016, 16:25. INDICATIONS : Ascites. MEDICAL HISTORY : Diarrhea. Nausea. Back pain. SURGICAL HISTORY : Thoracentesis x 7. ENCOUNTER: Subsequent ACUITY: 3 weeks PAIN SCORE: 6/10 LOCATION: Right lower quadrant FLUID: Total volume of 16,100 cc of clear, yellow fluid was removed. Fluid was sent to lab for ordered studies. Post procedure scanning reveals no hematoma or other complication. TECHNIQUE: 1. Ultrasound guidance for abdominal paracentesis. 2. Paracentesis. The risks, benefits, and alternatives to ultrasound guided paracentesis were explained to the patient in detail including the risk of bleeding and infection. Written and verbal informed consent was obt ained. With the patient on the ultrasound table, ultrasound imaging was used to select the most appropriate approach for paracentesis. Overlying skin was prepped and draped in the usual sterile fashion and wi th a local anesthetic, a dermatotomy was made with an 11 blade scalpel. A 6 [place] [id number] ca theter was introduced into the peritoneal cavity and fluid was collected. The patient tolerated the procedure well and left the ultrasound suite in stable condition. CONCLUSION: Uncomplicated ultrasound guided paracentesis. Alonso Oneil MD on March 26, 2016 at 15:33 Board Certified Radiologist. This report was verified electronically.
[2016-03-26] MEDS ORDERED: ALBUMIN HUMAN 25% 75 GM IV ONE (16:00)
[2016-03-26 18:00] LABS: REVIEW FLAG FINAL
[2016-03-26] MEDS: MORPHINE SULFATE 4 MG/ML INJ IV PUSH PRN ×2 (18:09→22:45)
[2016-03-26 18:41] LABS: PERITONEAL WBC 286 /MM3 (0-10)
[2016-03-26 19:15] LABS: PERITONEAL LYMPHS 48 %; PERITONEAL MESOTHELIAL 8 %; PERITONEAL MONOS 6 %; PERITONEAL POLYS(SEGS) 38 %
[2016-03-26] MEDS: VANCOMYCIN 1,000 MG/NS 250 ML IV SCH ×2 (21:24)
[2016-03-27] VITALS (14 sets, daily range): BP systolic 76–85; BP diastolic 53–61; PULSE 78–117; RESP 10–26; TEMP 96.6–98.1; O2SAT 96–100
[2016-03-27] MEDS: CHLORHEXIDINE GLUCONATE 2 % 1 PACK (2 CLOTHS)(taper/protocol) TOP SCH (03:49)
[2016-03-27] MEDS: cefTRIAXone INJ 2,000 MG in SODIUM CHLORIDE 0.9% INJ 100 ML IV SCH ×2 (05:31→17:12)
[2016-03-27] MEDS: DEXT 5%-NACL 0.9% 1000 ML INJ 1,000 ML IV SCH ×2 (05:31→15:00)
[2016-03-27] MEDS: DIPHENHY/LIDO/MAG/ALUM MOUTHWASH (Adult/Peds) 60 ML BTL SWISH-SWAL SCH ×5 (07:00→21:00)
--- NOTE | 2016-03-27 07:58 | HHI.PR ---
Subjective Remarks BP is low. He had paracenthesis yesterday. Discussed with the ICU nurse. Will give a small bolus of 250 cc NS and albumin. Monitor BP. Patient says she is not eating because he has pain. He is also refusing magic wash and says it doesn't work. He ia asking constantly for pain medications. Says he needs pain meds in order to eat. Discussed at length goal of care, code status. Patient leans towards comfort care. He is telling me he wants DNR status. He wants also to talk with hospice. Objective Vitals Vital Signs Date Time Temp Pulse Resp B/P Pulse Ox O2 Delivery O2 Flow Rate FiO2 03/27/16 06:00 87 03/27/16 04:00 78 03/27/16 04:00 98.1 78 11 82/57 97 03/27/16 02:00 93 03/27/16 00:00 97.6 85 10 81/59 98 03/27/16 00:00 85 03/26/16 23:46 12 03/26/16 22:00 79 03/26/16 20:43 97 Nasal Cannula 3.00 03/26/16 20:00 97.7 85 13 87/64 97 03/26/16 20:00 85 03/26/16 19:00 97 Nasal Cannula 3.00 03/26/16 18:00 92 03/26/16 16:00 97.0 109 17 85/55 99 03/26/16 16:00 109 03/26/16 14:00 97 03/26/16 12:00 101 03/26/16 12:00 97.4 101 23 72/52 100 03/26/16 10:00 96 03/26/16 08:20 96 Nasal Cannula 4.00 03/26/16 08:00 97.2 91 14 83/63 100 03/26/16 08:00 98 Nasal Cannula 4.00 03/26/16 08:00 91 I/O 03/26/16 03/26/16 03/26/16 03/27/16 03/27/16 03/27/16 06:59 14:59 22:59 06:59 14:59 22:59 Intake Total 3252 ml 674 ml 762 ml Output Total 575 ml 350 ml 475 ml Balance 2677 ml 324 ml 287 ml Intake Oral 120 ml IV Total 2532 ml 574 ml 762 ml Albumin 600 ml 100 ml 0 ml Output Urine Total 575 ml 350 ml 475 ml # Bowel Movements 1 0 0 Result Diagram: 03/26/16 1735 03/26/16 0526 Imaging Last Impressions Cyst Biopsy Asp-Paracentesis US 03/26/16 0000 Signed Impressions: Service Date/Time: Saturday, March 26, 2016 13:08 - CONCLUSION: Uncomplicated ultrasound guided paracentesis. Alonso Oneil MD Chest X-Ray 03/25/16 1718 Signed Impressions: Service Date/Time: Friday, March 25, 2016 17:34 - CONCLUSION: Almost complete resolution of the previously seen the right lung base consolidation. Gabrielle Tipton MD Objective Remarks GENERAL: This is a patient who is severely cachectic with bitemporal wasting. SKIN: Bilateral buttocks pressure ulcers present on admission. Cool and dry. HEAD: Atraumatic. Normocephalic.Bitemporal waisting. EYES: No scleral icterus. No injection or drainage. ENT: Nose without bleeding, purulent drainage. NECK: Trachea midline. No JVD or lymphadenopathy. CARDIOVASCULAR: Regular rate and rhythm without murmurs, gallops, or rubs. Dependent edema noted right paraspinal thoracic and lumbar areas. 2-3+ edema ankles and feet. RESPIRATORY: No wheezes, rales. Right upper lobe with expiratory rhonchi; otherwise lungs clear to auscultation in other giles. GASTROINTESTINAL: Abdomen mildly tender with palpation, less distended. No guarding. MUSCULOSKELETAL: Extremities without clubbing, cyanosis. No calf tenderness. Back pain palpable paraspinal around the level of T11. NEUROLOGICAL: Awake and alert. Motor and sensory grossly within normal limits. Normal speech. A/P Problem List: (1) Severe sepsis ICD Code: A41.9 Status: Acute (2) Hyponatremia ICD Code: E87.1 Status: Acute (3) Hyperkalemia ICD Code: E87.5 Status: Resolved (4) Increased anion gap metabolic acidosis ICD Code: E87.2 Status: Acute (5) CHELY (acute kidney injury) ICD Code: N17.9 Status: Acute (6) Thrombocytosis ICD Code: D47.3 Status: Acute (7) Hypoglycemia ICD Code: E16.2 Status: Acute (8) Severe protein-calorie malnutrition ICD Code: E43 Status: Acute (9) Hematemesis ICD Code: K92.0 Status: Acute Assessment and Plan This is a 55-year-old male with past medical history of ascites for which he has gotten multiple ultrasound-guided paracentesis with drainage of large amount of ascites for about the past 6 months. He is here for worsening ascites and shortness of breath and had significant hypotension in the ER with a blood pressure of 77/52 requiring IV albumin and fluids. He is also tachycardic and WBC is elevated at 18.8 with neutrophilia. Lactic acid elevated at 3.1. Potassium 6.6 on admission and sodium is low at 126. Anion gap is elevated at 16 and he shows acute kidney injury with BUN of 71, creatinine 1.95, estimated GFR 36. Hypoglycemia noted with glucose initially 58 and 48 on repeat BMP. Patient BNP 1846. He is notably cachectic with bitemporal wasting and has a low albumin 1.9. Severe sepsis - UTI vs SBP Buttocks with pressure wounds, present on admission . Consult wound care nurse - Vancomycin IV with pharmacy consult for assistance with therapeutic monitoring and dosing - Rocephin 2 g IV every 12 hours - Blood cultures 2 and urine culture pending; follow results - continuous cardiac telemetry - Albumin 50 g IV 1 dose for severe hypotension 03/25 - Start Albumin 25 g IV bid 03/26 - Start albumin 25 g IV once, continue 25 g bid - D5 normal saline at 100 cc per hour.Monitor BS. Patient is not eating much.Consult shell assembler - C. difficile toxin negative - Lactic acid sepsis protocol Ascites - Ultrasound-guided abdominal paracentesis when stabilized Hyponatremia - initial sodium 126, slowly trending up - D5NS at 100 cc/hr - recheck BMP Hyperkalemia - 6.6 on admission. Resolved - Given D50, insulin, and calcium gluconate in the ER. - Repeat potassium 6.1 - D50- 50 cc IV push, and regular insulin 10 units IV Increased anion gap metabolic acidosis. Resolving - Anion gap at 12 now - We'll continue to monitor with repeat BMP Acute kidney Insufficiency - IV fluid hydration with D5 normal saline at 100 cc/h - Avoid nephrotoxins - Repeat BMP and follow trends Thrombocytosis, most likely reactive. monitor . Stable and no signs of bleeding at this time. - Platelet count 770,000 on admission - Repeat CBC in a.m. Hypoglycemia - D50 IV one full vial - Recheck BMP for glucose level Severe protein calorie malnutrition - Consult dietitian to assist with recommendations for dietary intake Hematemesis - We'll check serial H&H every 6 hours and follow results - Transfuse if needed - Consult GI DVT prophylaxis - SCDs - chemoprophylaxis contraindicated; hematemesis Discussed Condition With Patient, nurse Code status: DNR Discussed at length goal of care, code status. Patient leans towards comfort care. He is telling me he wants DNR status. He wants also to talk with hospice. Chiquita Zhao MD Mar 27, 2016 07:58
[2016-03-27] MEDS ORDERED: ALBUMIN HUMAN 25% 25 GM/100 ML BAGP IV ONE (08:00)
[2016-03-27] MEDS ORDERED: SODIUM CHLOR 0.9% 250 ML INJ 250 ML IV ONE (08:00)
--- NOTE | 2016-03-27 08:05 | EKG ---
Date Performed: 03/25/2016 Time Performed: 17:46:49 PTAGE: 55 years EKG: SINUS TACHYCARDIA LOW QRS VOLTAGE SEPTAL MYOCARDIAL INFARCTION ABNORMAL ECG PREVIOUS TRACING : 03/11/2016 18.48 DOCTOR: Adan Bray Interpretating Date/Time 03/27/2016 07:55:40
[2016-03-27] MEDS: SODIUM CHLORIDE 0.9% FLUSH 5 ML FLUSH FLUSH SCH ×2 (09:00→21:04)
[2016-03-27] MEDS: CALCIUM CARBONATE 500 MG CHEWABLE TAB CHEW SCH ×4 (09:20→21:00)
[2016-03-27] MEDS: MORPHINE SULFATE 4 MG/ML INJ IV PUSH PRN ×3 (09:21→21:18)
[2016-03-27] MEDS: ONDANSETRON HCL 4 MG/2 ML VIAL IVP PRN ×2 (09:27→21:28)
[2016-03-27] MEDS: ALBUMIN HUMAN 25% 25 GM/100 ML BAGP IV SCH ×2 (11:06→21:03)
[2016-03-27] MEDS: ACETAMINOPHEN/HYDROcodone 325 MG/5 MG TAB PO PRN ×2 (11:10→17:12)
--- NOTE | 2016-03-27 12:17 | PD.CONS ---
HPI History of Present Illness This is a 55 year old male patient who has been having recurrent ascites since September of 2015 of unknown etiology, requiring frequent paracentesis with large amount of fluids removal, he had paracentesis today and 16 L removed. He reports that he has lost 40-50 lbs over the past 7 months unintentionally. He reports decreased PO intake due to vomiting bile continuously. He had a recent admission and was discharged on 03/14/16, he had extensive work up including liver work up, CT, MRI, EGD, oncology consult and diagnostic paracentesis. During that admission, IR was consulted for bx of omentum, but wasn't able to do. Cytology showed atypical cells. S/P EGD/Incomplete colonoscopy (03/12/16)--- -> hiatal hernia, duodenal bulb ulcer, gastritis, esophagitis, poor prep, bx failed to reveal any malignancy, and severe ulcerative acute esophagitis. He refused to repeat colonoscopy. AFP 1.6, CEA 2.7, Ca 15-3 41.7, Ca 19-9 8.2, Ca 125 110.2. Hepatitis panel negative, high KATALINA, AMA, ASMA negative, Ceruloplasmin 23, Alpha 1 antitrypsin 232. LFTs normal. MRI showed abnormal nodularity of the peritoneums with possible omental thickening and large volume of free fluids suggesting primary for secondary peritoneal neoplasms. He continue to have poor PO intake, recurrent ascites, reflux, bile emesis. Hospice consulted. He is extremely cachexia. He denies hematemesis, melena or hematochezia. (Eugenai Payan) PFSH Past Medical History Malignant ascites . Past Surgical History Multiple ultrasound-guided paracentesis . (Eugenia Payan) Coded Allergies: No Known Allergies (Unverified , 03/07/16) Medications Current Medications Medications (Trade) Dose Ordered Sig/Maude Route Start Time Stop Time Status Last Admin (Rocephin Inj/NS Inj) 100 ml @ 200 mls/hr Q12H IV 03/26/16 06:00 03/27/16 05:31 (NS Flush) 2 ml UNSCH PRN FLUSH 03/25/16 18:30 (NS Flush) 2 ml BID FLUSH 03/25/16 21:00 03/27/16 09:00 (Tylenol) 650 mg Q4H PRN PO 03/25/16 18:30 (Zofran Inj) 4 mg Q6H PRN IVP 03/25/16 18:30 03/27/16 09:27 (Compazine Supp) 25 mg Q12H PRN [place] 03/25/16 18:30 (Dulcolax Supp) 10 mg DAILY PRN [place] 03/25/16 18:30 (Milk Of Magnesia Liq) 30 ml Q12H PRN PO 03/25/16 18:30 Sennosides 17.2 mg 17.2 mg Q12H PRN PO 03/25/16 18:30 Pharmacy Profile Note 0 ml @ 0 mls/hr UNSCH OTHER 03/25/16 20:45 (Vancomycin Inj/ NS 250 ml Inj) 250 ml @ 250 mls/hr Q24H IV 03/25/16 21:00 03/26/16 21:24 Miscellaneous Information SPECIFIC LAB TO BE CHRISTINA... ONCE ONCE XX 03/28/16 20:45 03/28/16 20:46 (D5W-NS 1000 ml Inj) 1,000 ml @ 100 mls/hr Q10H IV 03/25/16 23:00 03/27/16 05:31 Miscellaneous Information Patient in critical care unit? Ass... Q361D XX 03/25/16 23:30 (Chlorhexidine 2% Cloth) 3 pack DAILY@04 TOP 03/26/16 04:00 03/30/16 04:01 03/27/16 03:49 (Chlorhexidine 2% Cloth) 3 pack UNSCH PRN TOP 03/25/16 23:30 03/30/16 23:21 (Tums Chew) 500 mg Q12HR CHEW 03/26/16 09:00 03/27/16 09:20 (Albumin 25% Inj) 25 gm Q12H IV 03/26/16 10:00 03/27/16 11:06 (Magic Mouthwash Pediatric/Adult Liq) 5 ml ACHS SWISH-SWAL 03/26/16 11:00 03/27/16 11:06 (Morphine Inj) 2 mg Q4HR PRN IV PUSH 03/26/16 17:45 03/27/16 09:21 (Kidder 5-325 Mg) 1 tab Q6H PRN PO 03/26/16 17:45 03/27/16 11:10 (Tums Chew) 500 mg Q12HR CHEW 03/27/16 11:00 Family History Father in MVA Mother with hypertension Denies family history of cancer, diabetes, or heart disease Social History Tobacco: Still smokes, trying to quit Alcohol: Denies Illicit Drugs: Denies (Eugenia Payan) Review of Systems Constitutional: COMPLAINS OF: Fatigue, Change in appetite, DENIES: Fever, Chills Endocrine: DENIES: Polyuria Eyes: DENIES: Double Vision Ears, nose, mouth, throat: DENIES: Hoarseness Respiratory: DENIES: Shortness of breath Cardiovascular: DENIES: Syncope Gastrointestinal: COMPLAINS OF: Nausea, Vomiting, Anorexia, Heartburn, DENIES : Abdominal pain, Black stools, Bloody stools, Constipation, Diarrhea, Odynophagia, Swelling of Abdomen, Hematemesis Genitourinary: DENIES: Hematuria Musculoskeletal: COMPLAINS OF: Back pain, DENIES: Neck pain Integumentary: DENIES: Jaundice Hematologic/lymphatic: DENIES: Bruising Immunologic/allergic: DENIES: Eczema Neurologic: DENIES: Abnormal gait Psychiatric: DENIES: Anxiety (Eugenia Payan) GI Exam Vitals I&O Vital Signs Date Time Temp Pulse Resp B/P Pulse Ox O2 Delivery O2 Flow Rate FiO2 03/27/16 10:00 94 03/27/16 09:26 20 03/27/16 08:37 100 Nasal Cannula 2.00 03/27/16 08:00 98.0 97 15 81/53 99 03/27/16 08:00 94 03/27/16 07:00 99 Nasal Cannula 3.00 03/27/16 06:00 87 03/27/16 04:00 78 03/27/16 04:00 98.1 78 11 82/57 97 03/27/16 02:00 93 03/27/16 00:00 97.6 85 10 81/59 98 03/27/16 00:00 85 03/26/16 22:00 79 03/26/16 20:43 97 Nasal Cannula 3.00 03/26/16 20:00 97.7 85 13 87/64 97 03/26/16 20:00 85 03/26/16 19:00 97 Nasal Cannula 3.00 03/26/16 18:00 92 03/26/16 16:00 97.0 109 17 85/55 99 03/26/16 16:00 109 03/26/16 14:00 97 I/O 03/26/16 03/26/16 03/26/16 03/27/16 03/27/16 03/27/16 06:59 14:59 22:59 06:59 14:59 22:59 Intake Total 3252 ml 674 ml 762 ml 350 ml Output Total 575 ml 350 ml 475 ml Balance 2677 ml 324 ml 287 ml 350 ml Intake Oral 120 ml IV Total 2532 ml 574 ml 762 ml 250 ml Albumin 600 ml 100 ml 0 ml 100 ml Output Urine Total 575 ml 350 ml 475 ml # Bowel Movements 1 0 0 Imaging Last Impressions Cyst Biopsy Asp-Paracentesis US 03/26/16 0000 Signed Impressions: Service Date/Time: Saturday, March 26, 2016 13:08 - CONCLUSION: Uncomplicated ultrasound guided paracentesis. Alonso Oneil MD Chest X-Ray 03/25/16 1718 Signed Impressions: Service Date/Time: Friday, March 25, 2016 17:34 - CONCLUSION: Almost complete resolution of the previously seen the right lung base consolidation. Salomón. Crispin Tipton MD Laboratory Test 03/26/16 03/26/16 03/26/16 12:44 13:45 17:35 Hemoglobin 10.7 GM/DL 9.8 GM/DL Hematocrit 30.1 % 29.0 % Peritoneal Fluid WBC 286 /MM3 Peritoneal Fluid RBC 41 /MM3 Peritoneal Fluid Neutrophils 38 % Peritoneal Fluid Lymphocytes 48 % Peritoneal Fluid Monocytes 6 % Peritoneal Fluid Mesothelial 8 % Cells Peritoneal Fluid Total Protein 3.2 GM/DL Peritoneal Fluid Albumin 1.1 G/DL Peritoneal Fluid LDH 780 U/L Peritoneal Fluid Glucose 12 MG/DL Peritoneal Fluid Amylase 14 U/L Date/Time Procedure Status Source Growth 03/26/16 13:45 Gram Stain - Final Resulted Fluid Peritoneal Fluid 03/26/16 13:45 Body Fluid Culture Resulted Fluid Peritoneal Fluid Pending 03/25/16 21:50 Urine Culture - Final Complete Urine Clean Catch NO GROWTH IN 48 HOURS. 03/25/16 19:18 Aerobic Blood Culture - Preliminary Resulted Blood Peripheral NO GROWTH IN 2 DAYS 03/25/16 19:18 Anaerobic Blood Culture - Preliminary Resulted Blood Peripheral NO GROWTH IN 2 DAYS Physical Examination HEENT:extremely cachexia atraumatic; no jaundice. Throat is clear. NECK: Neck is supple, no JVD, no lymphadenopathy. CHEST: Chest is clear to auscultation and percussion. CARDIAC: Regular rate and rhythm with no murmur gallop or rubs. ABDOMEN: Soft, nondistended, nontender; no hepatosplenomegaly; bowel sounds are present in all four quadrants. ascites EXTREMITIES: No clubbing, cyanosis, or edema. SKIN: Normal; no rash; no jaundice. PRENATAL GENETIC COUNSELOR: No focal deficits; alert and oriented times three. (Eugenia Payan) Assessment and Plan Plan - Recurrent ascites. recurrent ascites since September of 2015 of unknown etiology, requiring frequent paracentesis with large amount of fluids removal, he had paracentesis today and 16 L removed. He reports that he has lost 40-50 lbs over the past 7 months unintentionally. He reports decreased PO intake due to vomiting bile continuously. He had a recent admission and was discharged on , he had extensive work up including liver work up, CT, MRI, EGD, oncology consult and diagnostic paracentesis. During that admission, IR was consulted for bx of omentum, but wasn't able to do. Cytology showed atypical cells. S/P EGD/Incomplete colonoscopy (03/12/16)----> hiatal hernia, duodenal bulb ulcer, gastritis, esophagitis, poor prep, bx failed to reveal any malignancy, and severe ulcerative acute esophagitis. He refused to repeat colonoscopy. AFP 1.6, CEA 2.7, Ca 15-3 41.7, Ca 19-9 8.2, Ca 125 110.2. Hepatitis panel negative , high KATALINA, AMA, ASMA negative, Ceruloplasmin 23, Alpha 1 antitrypsin 232. LFTs normal. MRI showed abnormal nodularity of the peritoneums with possible omental thickening and large volume of free fluids suggesting primary for secondary peritoneal neoplasms. He continue to have poor PO intake, recurrent ascites, reflux, bile emesis. Hospice consulted. He is extremely cachexia. He denies hematemesis, melena or hematochezia. 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 50 lb weight loss over 7 months - Severe electrolyte abnormalities with hyponatremia, hyperkalemia. Poor PO intake, worsening kidney function Plan: - SHELIA - Colonoscopy once electrolyte corrected - Oncology on the case - Hospice on the case - s/p paracentesis today - Supportive care - Patient seen and examined by Dr. Kevin and myself and this note is written on his behalf. (Eugenia Payan) Physician Comments Seen and examined, long discussion with the patient, will hold on any endoscopic evaluation for now, possible hospice care to follow. (Luther Kevin MD) Eugenia Payan Mar 27, 2016 12:16 Luther Kevin MD Mar 27, 2016 21:36
--- NOTE | 2016-03-27 19:13 | MB ---
cc: RONA ATKINSON M.D., MIRELA MD DATE OF CONSULTATION: 03/27/2016 REASON FOR CONSULTATION: ATTENDING PHYSICIAN Dr. Zhao. REASON FOR CONSULTATION Opinion regarding patient with recurrent ascites and peritoneal implant. HISTORY OF PRESENT ILLNESS The patient is a 55-year-old male presented to the hospital again with recurrent tense ascites. He was doing well until September of this year when he started having recurrent ascites. He has been to the emergency room multiple times and had multiple large volume paracentesis. The patient, however, has declined admission multiple times. He finally agreed to stay in the hospital for further workup earlier this month. He had two large volume paracentesis during the hospital stay. He was supposed to have a biopsy of the peritoneal implant by radiology but the procedure was cancelled because he did not have the right equipment. The patient subsequently left against medical advice. During the last hospital stay, he also had upper endoscopy which showed three large duodenal bulb ulcers and gastritis. Colonoscopy was a poor prep. Since he left the hospital, the ascites has reaccumulated. He presented to the hospital with abdominal pain, increased shortness of breath, nausea. He also has back pain, especially when he swallows. He denies fever or chills. Denies chest pressure, palpitation. Denies headache, focal numbness or weakness. PAST MEDICAL HISTORY 1. Recurrent ascites and peritoneal implant as above. 2. Duodenal ulcer. PAST SURGICAL HISTORY: Multiple large volume paracentesis. FAMILY HISTORY: He has no siblings. No family history of liver disorder. SOCIAL HISTORY: He smokes a pack per day for 30 years. Denies alcohol use. 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 ALLERGIES: No known drug allergy. CURRENT MEDICATIONS 1. Calcium carbonate. 2. Magic Mouth Wash. 3. Albumin. 4. Ceftriaxone. 5. Vancomycin. REVIEW OF SYSTEMS Constitutional: He has lost more than 50 pounds. Denies any fever, chills, night sweat. Eyes: Denies any blurry vision. ENT: No mouth sores or voice changes. Cardiovascular: No chest pressure, palpitations. Respiratory: Increased shortness of breath. Denies significant cough. GI: As above. : No dysuria, hematuria. Musculoskeletal: He has mid back pain. Hematology: Negative. Endocrine: Negative. Dermatology: Negative. Psychiatric: Negative. Neurologic: Negative. PHYSICAL EXAMINATION VITAL SIGNS: Temperature 98, blood pressure 85/61, O2 saturation 96 percent. General: He is alert and oriented x3. He is cachectic and weak. HEENT: Atraumatic, normocephalic. Pupils equal, round, reactive to light. Extraocular muscle intact. No scleral icterus. Oropharynx: Dry mucosa. No lesion or thrush. Neck: No thyromegaly. No palpable mass. Lymphatic: No palpable cervical, clavicular, axillary lymph node. Cardiovascular: Regular S1-S2 normal. Lungs: Decreased breath sounds bilateral bases. No wheezing or rhonchi. Abdomen: The abdomen is now soft after paracentesis. He still has fluid wave. Extremities: 2+ lower extremity edema. No calf tenderness. Back: No paravertebral tenderness. Skin: Diffuse edema. No rash. Neurologic: Nonfocal. LABORATORY DATA Reviewed ASSESSMENT 1. Recurrent ascites since September of this year. He has had multiple large volume paracentesis. All the cytology has been negative for malignancy. CT of the abdomen and pelvis showed peritoneal implants. MRI showed abnormal nodularity of the peritoneum with possible omental thickening. CA15-3 and CA-125 was elevated but non specific. CT of the chest did not show clear evidence of metastatic disease. EGD showed ulcer, gastritis, esophagitis. Colonoscopy was a poor prep but no obvious mass noted. He left against medical advice the last time he was here. He now represented with increased shortness of breath and tense ascites. He had another paracentesis and removal of 16 liters of clear yellow fluid yesterday. I told the patient this appeared to be malignancy and the prognosis is poor. He still wants aggressive workup. I am going to consult radiology again to see if they can do a needle biopsy of the peritoneal implant. If not, we will have to consult surgery to see if they can do the biopsy. 2. Anorexia. He most likely has an underlying malignancy. 3. Acute renal failure likely due to third spacing. His creatinine has improved after the paracentesis. 4. Metabolic acidosis. He was started on antibiotic to cover for possible sepsis. RECOMMENDATIONS I had an extensive discussion with the patient. Will consult radiology to biopsy the peritoneal implant. Further recommendation will depend on tissue diagnosis. Thank you Dr. Zhao for asking us to see this patient. MD FAUSTO Gu/PEREZ /5:12 PM /5:55 PM [facility]ITALMaricel
[2016-03-27] MEDS: VANCOMYCIN 1,000 MG/NS 250 ML IV SCH ×2 (21:03)
[2016-03-28] VITALS (14 sets, daily range): BP systolic 77–96; BP diastolic 54–66; PULSE 74–121; RESP 13–25; TEMP 97.4–98.8; O2SAT 94–98
[2016-03-28] MEDS: ACETAMINOPHEN/HYDROcodone 325 MG/5 MG TAB PO PRN ×4 (00:47→22:59)
[2016-03-28] MEDS: DEXT 5%-NACL 0.9% 1000 ML INJ 1,000 ML IV SCH ×2 (00:48→10:22)
[2016-03-28] MEDS: MORPHINE SULFATE 4 MG/ML INJ IV PUSH PRN ×4 (02:35→17:20)
[2016-03-28] MEDS: CHLORHEXIDINE GLUCONATE 2 % 1 PACK (2 CLOTHS)(taper/protocol) TOP SCH (04:00)
[2016-03-28] MEDS: cefTRIAXone INJ 2,000 MG in SODIUM CHLORIDE 0.9% INJ 100 ML IV SCH ×2 (05:15→17:20)
[2016-03-28] MEDS: DIPHENHY/LIDO/MAG/ALUM MOUTHWASH (Adult/Peds) 60 ML BTL SWISH-SWAL SCH ×4 (07:00→21:00)
[2016-03-28] MEDS: CALCIUM CARBONATE 500 MG CHEWABLE TAB CHEW SCH ×3 (07:55→22:31)
[2016-03-28] MEDS: SODIUM CHLORIDE 0.9% FLUSH 5 ML FLUSH FLUSH SCH ×2 (07:56→22:32)
--- NOTE | 2016-03-28 07:56 | HHI.PR ---
Subjective Remarks Patient reports he has back pain. No cp, sob n/v/d/c. Says he is eating better. Objective Vitals Vital Signs Date Time Temp Pulse Resp B/P Pulse Ox O2 Delivery O2 Flow Rate FiO2 03/28/16 06:20 12 03/28/16 06:00 76 03/28/16 04:00 75 03/28/16 04:00 97.8 75 13 93/55 98 03/28/16 02:00 86 03/28/16 00:00 98.0 74 16 91/58 94 03/28/16 00:00 74 03/27/16 22:00 85 03/27/16 20:00 97.6 98 12 84/61 96 03/27/16 19:00 Nasal Cannula 3.00 03/27/16 18:14 16 03/27/16 18:00 117 03/27/16 16:00 98.0 93 12 85/61 96 03/27/16 16:00 93 03/27/16 14:00 103 03/27/16 12:00 96.6 96 26 76/58 98 03/27/16 12:00 96 03/27/16 10:00 94 03/27/16 08:37 100 Nasal Cannula 2.00 03/27/16 08:00 98.0 97 15 81/53 99 03/27/16 08:00 94 I/O 03/27/16 03/27/16 03/27/16 03/28/16 03/28/16 03/28/16 07:00 15:00 23:00 07:00 15:00 23:00 Intake Total 762 ml 1520 ml 1050 ml 600 ml Output Total 475 ml 325 ml 400 ml 250 ml Balance 287 ml 1195 ml 650 ml 350 ml Intake Oral 250 ml IV Total 762 ml 1170 ml 1050 ml 600 ml Albumin 0 ml 100 ml Output Urine Total 475 ml 325 ml 400 ml 250 ml # Bowel Movements 0 0 Result Diagram: 03/26/16 1735 03/27/16 1556 Imaging Last Impressions Cyst Biopsy Asp-Paracentesis US 03/26/16 0000 Signed Impressions: Service Date/Time: Saturday, March 26, 2016 13:08 - CONCLUSION: Uncomplicated ultrasound guided paracentesis. Alonso Oneil MD Chest X-Ray 03/25/16 2228 Signed Impressions: Service Date/Time: Friday, March 25, 2016 17:34 - CONCLUSION: Almost complete resolution of the previously seen the right lung base consolidation. Gabrielle Tipton MD Objective Remarks GENERAL: This is a patient who is severely cachectic with bitemporal wasting. SKIN: Bilateral buttocks pressure ulcers present on admission. Cool and dry. HEAD: Atraumatic. Normocephalic.Bitemporal waisting. EYES: No scleral icterus. No injection or drainage. ENT: Nose without bleeding, purulent drainage. NECK: Trachea midline. No JVD or lymphadenopathy. CARDIOVASCULAR: Regular rate and rhythm without murmurs, gallops, or rubs. Dependent edema noted right paraspinal thoracic and lumbar areas. 2-3+ edema ankles and feet. RESPIRATORY: No wheezes, rales. Right upper lobe with expiratory rhonchi; otherwise lungs clear to auscultation in other giles. GASTROINTESTINAL: Abdomen mildly tender with palpation, less distended. No guarding. MUSCULOSKELETAL: Extremities without clubbing, cyanosis. No calf tenderness. Back pain palpable paraspinal around the level of T11. NEUROLOGICAL: Awake and alert. Motor and sensory grossly within normal limits. Normal speech. A/P Problem List: (1) Severe sepsis ICD Code: A41.9 Status: Acute (2) Hyponatremia ICD Code: E87.1 Status: Acute (3) Hyperkalemia ICD Code: E87.5 Status: Resolved (4) Increased anion gap metabolic acidosis ICD Code: E87.2 Status: Acute (5) CHELY (acute kidney injury) ICD Code: N17.9 Status: Acute (6) Thrombocytosis ICD Code: D47.3 Status: Acute (7) Hypoglycemia ICD Code: E16.2 Status: Acute (8) Severe protein-calorie malnutrition ICD Code: E43 Status: Acute (9) Hematemesis ICD Code: K92.0 Status: Acute Assessment and Plan This is a 55-year-old male with past medical history of ascites for which he has gotten multiple ultrasound-guided paracentesis with drainage of large amount of ascites for about the past 6 months. He is here for worsening ascites and shortness of breath and had significant hypotension in the ER with a blood pressure of 77/52 requiring IV albumin and fluids. He is also tachycardic and WBC is elevated at 18.8 with neutrophilia. Lactic acid elevated at 3.1. Potassium 6.6 on admission and sodium is low at 126. Anion gap is elevated at 16 and he shows acute kidney injury with BUN of 71, creatinine 1.95, estimated GFR 36. Hypoglycemia noted with glucose initially 58 and 48 on repeat BMP. Patient BNP 1846. He is notably cachectic with bitemporal wasting and has a low albumin 1.9. Severe sepsis - UTI vs SBP Metabolic acidosis Buttocks with pressure wounds, present on admission. Stage 2 pressure injury to sacrum that is resolving. Also stage 4 left ischium pressure injury. Has right upper thigh between hip and ischium skin loss not pressure related. Consult wound care nurse, following. Cleanse wounds with NS and apply foam dressings to change every 3 days or PRN for saturation or dislodgement - Vancomycin IV with pharmacy consult for assistance with therapeutic monitoring and dosing - Rocephin 2 g IV every 12 hours - Blood cultures 2 and urine culture pending; follow results - continuous cardiac telemetry - Albumin 50 g IV 1 dose for severe hypotension 03/25 - Start Albumin 25 g IV bid 03/26 - Received albumin 25 g IV once 03/27, continue 25 g bid - D5 normal saline at 100 cc per hour.Monitor BS. 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 difficile toxin negative - Lactic acid sepsis protocol Ascites - S/P Ultrasound-guided abdominal paracentesis with removal if 16L - Plan for LP and CT guided biopsy by IR. MRI reviewed shows nodularity of thr peritoneum with possible omental thickening. CA 15-3 and CA -125 elevated but non specific CT chest no evidence of metastatic disease EGD recent last admission showed ulcer gastritis, esophagitis Colonoscopy recent last admission poor prep however no obvious mass Note patient left AMA last admission and was a plan for biopsy. Will consult IR needle biopsy of the peritoneal implant Patient with anorexia, severe protein beverley malnutrition likely has underlying malignancy GI consulted will hold on any intervention, doesn't plan for colonoscopy Hem/onc consulted Dr Calix appreciate recommendations. Plan for biopsy by IR Hyponatremia - initial sodium 126, slowly trending up - D5NS at 100 cc/hr - recheck BMP Hyperkalemia - 6.6 on admission. Resolved - Given D50, insulin, and calcium gluconate in the ER. - - Received D50- 50 cc IV push, and regular insulin 10 units IV Increased anion gap metabolic acidosis. Resolving - Anion gap at 12 now - We'll continue to monitor with repeat BMP Acute kidney Insufficiency Hepato renal syndrom, renal indices improved after removal of 16L (paracentesis) - IV fluid hydration with D5 normal saline at 100 cc/h - Avoid nephrotoxins - Repeat BMP and follow trends Thrombocytosis, most likely reactive. monitor . Stable and no signs of bleeding at this time. - Platelet count 70,000 on admission - Repeat CBC in a.m. Hypoglycemia - D50 IV one full vial - Recheck BMP for glucose level Severe protein calorie malnutrition - Consult dietitian to assist with recommendations for dietary intake Hematemesis - We'll check serial H&H every 6 hours and follow results - Transfuse if needed - Consult GI DVT prophylaxis - SCDs - chemoprophylaxis contraindicated; hematemesis Discussed Condition With Patient, nurse Code status: DNR Discussed at length goal of care, code status. Patient leans towards comfort care. He is telling me he wants DNR status. He wants also to talk with hospice. Hospice is also consulted. Chiquita Zhao MD Mar 28, 2016 07:56
[2016-03-28] MEDS: ALBUMIN HUMAN 25% 25 GM/100 ML BAGP IV SCH ×2 (10:22→22:31)
[2016-03-28] MEDS ORDERED: LIDOCAINE 1%/EPINEPHrine 1:100,000 SOLN 20 ML VIAL ONE (11:45)
[2016-03-28] MEDS ORDERED: MIDAZOLAM HCL 5 MG/5 ML VIAL ONE (11:49)
[2016-03-28] MEDS ORDERED: fentaNYL CITRATE 250 MCG/5 ML AMP ONE (11:49)
--- NOTE | 2016-03-28 13:02 | RADRPT ---
EXAM DATE/TIME: 03/28/2016 12:02 [facility] COMPARISON: No previous studies available for comparison. INDICATIONS : Right peritoneal wall thickening. BIOPSY SITE: Right peritoneal soft tissue density DEVICE(S): 1.) 18 gauge Temno core biopsy needle MEDICAL HISTORY : None. SURGICAL HISTORY : None. ENCOUNTER: Initial ACUITY: 1 day PAIN SCORE: 0/10 LOCATION: Right A total of two core specimen(s) were obtained and sent to the laboratory for pathologic evaluation. PROCEDURE: 1. CT guided abdomen biopsy. 3. EKG and oximetry remained stable throughout the procedure. Prior to the procedure informed consent was obtained. Any appropriate prior imaging studies were rev iewed. The site was prepped in a sterile fashion. Full sterile technique was used, including cap, mask, angela rile gloves and gown and a large sterile sheet. Hand hygiene and 2% chlorhexidine and/or betadine/al cohol prep was utilized per protocol for cutaneous antisepsis. The skin and subcutaneous tissues wer e infiltrated with local anesthetic solution. With CT guidance the previously identified target was localized. Biopsy was performed using the presc ribed needle as above. Adequate hemostasis was obtained with compression at the puncture site. Follow-up CT scan reveals no hemorrhage. Patient does have moderate diffuse ascites throughout the ab domen. The patient tolerated the procedure well and there were no complications. The patient was returned to the Radiology Outpatient Unit in stable condition. CONCLUSION: Uncomplicated CT guided biopsy of a focal soft tissue density on the right peritoneum.. Alonso Oneil MD on March 28, 2016 at 12:59 Board Certified Radiologist. This report was verified electronically.
[2016-03-28] MEDS: CYCLOBENZAPRINE HCL 10 MG TAB PO SCH ×2 (13:47→22:44)
[2016-03-28] MEDS ORDERED: PILL SPLITTER OTHER PRN (14:00)
--- NOTE | 2016-03-28 15:36 | HHI.GIFU ---
Subjective Remarks Patient is resting in bed eating snacks, denies nausea or vomiting today, main issue is pain where an ulcer found on the buttock area. He had peritoneum bx today (Eugenia Payan) Objective Vitals I&O Vital Signs Date Time Temp Pulse Resp B/P Pulse Ox O2 Delivery O2 Flow Rate FiO2 03/28/16 15:17 22 03/28/16 14:00 109 03/28/16 12:00 85 03/28/16 12:00 97.5 85 14 88/54 94 03/28/16 10:26 11 03/28/16 10:00 96 03/28/16 08:30 98 21 03/28/16 08:00 97.4 99 25 83/56 96 03/28/16 08:00 99 03/28/16 07:00 94 Room Air 03/28/16 06:00 76 03/28/16 04:00 75 03/28/16 04:00 97.8 75 13 93/55 98 03/28/16 02:00 86 03/28/16 00:00 98.0 74 16 91/58 94 03/28/16 00:00 74 03/27/16 22:00 85 03/27/16 20:35 96 Nasal Cannula 3.00 03/27/16 20:00 97.6 98 12 84/61 96 03/27/16 19:00 Nasal Cannula 3.00 03/27/16 18:00 117 03/27/16 16:00 98.0 93 12 85/61 96 03/27/16 16:00 93 I/O 03/27/16 03/27/16 03/27/16 03/28/16 03/28/16 03/28/16 06:59 14:59 22:59 06:59 14:59 22:59 Intake Total 762 ml 1520 ml 1050 ml 600 ml Output Total 475 ml 325 ml 400 ml 250 ml Balance 287 ml 1195 ml 650 ml 350 ml Intake Oral 250 ml IV Total 762 ml 1170 ml 1050 ml 600 ml Albumin 0 ml 100 ml Output Urine Total 475 ml 325 ml 400 ml 250 ml # Bowel Movements 0 0 Laboratory Laboratory Tests Test 03/27/16 15:56 Creatinine 0.83 Estimat Glomerular Filtration 97 Rate Date/Time Procedure Status Source Growth 03/26/16 13:45 Gram Stain - Final Resulted Fluid Peritoneal Fluid 03/26/16 13:45 Body Fluid Culture - Preliminary Resulted Fluid Peritoneal Fluid NO GROWTH IN 48 HOURS. 03/25/16 21:50 Urine Culture - Final Complete Urine Clean Catch NO GROWTH IN 48 HOURS. 03/25/16 19:18 Aerobic Blood Culture - Preliminary Resulted Blood Peripheral NO GROWTH IN 3 DAYS 03/25/16 19:18 Anaerobic Blood Culture - Preliminary Resulted Blood Peripheral NO GROWTH IN 3 DAYS Imaging Last Impressions Abdomen Biopsy CT 03/27/16 0000 Signed Impressions: Service Date/Time: February 12:02 - CONCLUSION: Uncomplicated CT guided biopsy of a focal soft tissue density on the right peritoneum.. Alonso Oneil MD Cyst Biopsy Asp-Paracentesis US 03/26/16 0000 Signed Impressions: Service Date/Time: Saturday, March 26, 2016 13:08 - CONCLUSION: Uncomplicated ultrasound guided paracentesis. Alonso Oneil MD Chest X-Ray 03/25/16 1718 Signed Impressions: Service Date/Time: Friday, March 25, 2016 17:34 - CONCLUSION: Almost complete resolution of the previously seen the right lung base consolidation. Gabrielle Tipton MD Physical Exam HEENT: Cachexia, normocephalic; atraumatic; no jaundice. Throat is clear. NECK: Neck is supple, no JVD, no lymphadenopathy. CHEST: Chest is clear to auscultation and percussion. CARDIAC: Regular rate and rhythm with no murmur gallop or rubs. ABDOMEN: Soft, nondistended, mild tenderness ; no hepatosplenomegaly; bowel sounds are present in all four quadrants, ascites EXTREMITIES: No clubbing, cyanosis, or edema. SKIN: pressure ulcer on the buttock area, with dssng. no jaundice. PRINT WASHER: No focal deficits; alert and oriented times three. (Ora,Eugenia JACKSON) Assessment and Plan Plan - Recurrent ascites. recurrent ascites since September of 2015 of unknown etiology, requiring frequent paracentesis with large amount of fluids removal, he had paracentesis today and 16 L removed. He reports that he has lost 40-50 lbs over the past 7 months unintentionally. He reports decreased PO intake due to vomiting bile continuously. He had a recent admission and was discharged on , he had extensive work up including liver work up, CT, MRI, EGD, oncology consult and diagnostic paracentesis. During that admission, IR was consulted for bx of omentum, but wasn't able to do. Cytology showed atypical cells. S/P EGD/Incomplete colonoscopy (03/12/16)----> hiatal hernia, duodenal bulb ulcer, gastritis, esophagitis, poor prep, bx failed to reveal any malignancy, and severe ulcerative acute esophagitis. He refused to repeat colonoscopy. AFP 1.6, CEA 2.7, Ca 15-3 41.7, Ca 19-9 8.2, Ca 125 110.2. Hepatitis panel negative , high [place], AMA, ASMA negative, Ceruloplasmin 23, Alpha 1 antitrypsin 232. LFTs normal. MRI showed abnormal nodularity of the peritoneums with possible omental thickening and large volume of free fluids suggesting primary for secondary peritoneal neoplasms. He continue to have poor PO intake, recurrent ascites, reflux, bile emesis. Hospice consulted. He is extremely cachexia. He denies hematemesis, melena or hematochezia. 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 50 lb weight loss over 7 months - Severe electrolyte abnormalities with hyponatremia, hyperkalemia. Poor PO intake, worsening kidney function Plan: - SHELIA - Await bx results - Oncology on the case - Hospice on the case - s/p paracentesis 03/27/16 - Supportive care - Patient seen and examined by Dr. Kevin and myself and this note is written on his behalf. (Eugenia Payan) Physician Comments Plan as above, agree with the plan, will follow up with you. (Luther Kevin MD) Eugenia Payan Mar 28, 2016 15:36 Luther Kevin MD Mar 28, 2016 17:36
--- NOTE | 2016-03-28 17:38 | PD.ONC.PN ---
Subjective Subjective Remarks Saw patient around 0700. He c/o increase abdominal girth. No CP/SOB. He has questions about peritoneal catheter placement. Objective Data Date Time Temp Pulse Resp B/P Pulse Ox O2 Delivery O2 Flow Rate FiO2 03/28/16 15:17 22 03/28/16 14:00 109 03/28/16 12:00 85 03/28/16 12:00 97.5 85 14 88/54 94 03/28/16 10:26 11 03/28/16 10:00 96 03/28/16 08:30 98 21 03/28/16 08:00 97.4 99 25 83/56 96 03/28/16 08:00 99 03/28/16 07:00 94 Room Air 03/28/16 06:00 76 03/28/16 04:00 75 03/28/16 04:00 97.8 75 13 93/55 98 03/28/16 02:00 86 03/28/16 00:00 98.0 74 16 91/58 94 03/28/16 00:00 74 03/27/16 22:00 85 03/27/16 20:35 96 Nasal Cannula 3.00 03/27/16 20:00 97.6 98 12 84/61 96 03/27/16 19:00 Nasal Cannula 3.00 03/27/16 18:00 117 03/28/16 03/28/16 03/28/16 07:00 15:00 23:00 Intake Total 600 ml 1315 ml Output Total 250 ml 275 ml Balance 350 ml 1040 ml Result Diagram: 03/26/16 1735 03/27/16 1556 Culture Results Microbiology Date/Time Procedure Status Source Growth 03/25/16 19:15 Aerobic Blood Culture - Preliminary Resulted Blood Peripheral NO GROWTH IN 3 DAYS 03/25/16 19:15 Anaerobic Blood Culture - Preliminary Resulted Blood Peripheral NO GROWTH IN 3 DAYS 03/25/16 19:18 Aerobic Blood Culture - Preliminary Resulted Blood Peripheral NO GROWTH IN 3 DAYS 03/25/16 19:18 Anaerobic Blood Culture - Preliminary Resulted Blood Peripheral NO GROWTH IN 3 DAYS 03/25/16 21:50 Urine Culture - Final Complete Urine Clean Catch NO GROWTH IN 48 HOURS. 03/26/16 13:45 Gram Stain - Final Resulted Fluid Peritoneal Fluid 03/26/16 13:45 Body Fluid Culture - Preliminary Resulted Fluid Peritoneal Fluid NO GROWTH IN 48 HOURS. Administered Medications Medications (Trade) Dose Ordered Sig/Maude Route PRN Reason Start Time Stop Time Status Last Admin Dose Admin Ceftriaxone Sodium/Sodium Chloride (Rocephin Inj/NS Inj) 100 ml @ 200 mls/hr Q12H IV 03/26/16 06:00 03/28/16 17:20 IV Flush (NS Flush) 2 ml BID FLUSH 03/25/16 21:00 03/28/16 07:56 Ondansetron HCl 4 mg 4 mg Q6H PRN IVP NAUSEA OR VOMITING 03/25/16 18:30 03/27/16 21:28 Vancomycin HCl 1000 mg/Sodium Chloride 250 ml @ 250 mls/hr Q24H IV 03/25/16 21:00 03/27/16 21:03 Dextrose/Sodium Chloride (D5W-NS 1000 ml Inj) 1,000 ml @ 100 mls/hr Q10H IV 03/25/16 23:00 03/28/16 10:22 Chlorhexidine Gluconate (Chlorhexidine 2% Cloth) 3 pack DAILY@04 TOP 03/26/16 04:00 03/30/16 04:01 03/28/16 04:00 Albumin Human (Albumin 25% Inj) 25 gm Q12H IV 03/26/16 10:00 03/28/16 10:22 Lidocaine/ Diphenhydr/Alum/ Mg/Simeth (Magic Mouthwash Pediatric/Adult Liq) 5 ml ACHS SWISH-SWAL 03/26/16 11:00 03/26/16 16:05 Morphine Sulfate (Morphine Inj) 2 mg Q4HR PRN IV PUSH breakthrough pain 03/26/16 17:45 03/28/16 17:20 Acetaminophen/ Hydrocodone Bitart ([place] 5-325 Mg) 1 tab Q6H PRN PO pain 03/26/16 17:45 03/28/16 14:18 Cyclobenzaprine HCl (Flexeril) 5 mg Q8HR PO 03/28/16 14:00 03/28/16 13:47 Objective Remarks GENERAL: Cachectic, weak. SKIN: Warm and dry. HEAD: Normocephalic. EYES: No scleral icterus. No injection or drainage. NECK: Supple, trachea midline. No JVD or lymphadenopathy. LYMPHATIC: No adenopathy. CARDIOVASCULAR: Regular rate and rhythm without murmurs. RESPIRATORY: Breath sounds equal bilaterally. No accessory muscle use. GASTROINTESTINAL: Abdomen soft, distended, +fluid wave EXTREMITIES: No cyanosis, or edema. MUSCULOSKELETAL: Adequate muscle tone. NEUROLOGICAL: No obvious focal deficit. Awake, alert, and oriented x3. PSYCHIATRIC: Appropriate mood and affect; insight and judgment normal. Assessment/Plan Assessment 1. Recurrent ascites since September of this year. He has had multiple large volume paracentesis. All the cytology has been negative for malignancy. CT of the abdomen and pelvis showed peritoneal implants. MRI showed abnormal nodularity of the peritoneum with possible omental thickening. CA15-3 and CA-125 was elevated but non specific. CT of the chest did not show clear evidence of metastatic disease. EGD showed ulcer, gastritis, esophagitis. Colonoscopy was a poor prep but no obvious mass noted. He left against medical advice the last time he was here. He now represented with increased shortness of breath and tense ascites. He had another paracentesis and removal of 16 liters of clear yellow fluid 03/26. I told the patient this appeared to be malignancy and the prognosis is poor. He still wants aggressive workup. He is going to have biopsy of peritoneal implant today. He asked about peritoneal catheter placement. I told him it would be reasonable to place the catheter if he decide to have comfort care with hospice. When we talked about hospice care, he became angry. He still want to have the biopsy. 2. Anorexia. He most likely has an underlying malignancy. 3. Acute renal failure likely due to third spacing. His creatinine has improved after the paracentesis. 4. Metabolic acidosis. He was started on antibiotic to cover for possible sepsis. Plan PLAN: Await biopsy of the peritoneal implant. Further treatment recommendation would depend on tissue diagnosis but option is limited if he has mets carcinoma given his poor performance status. Kane Calix MD Mar 28, 2016 17:37
[2016-03-28] MEDS ORDERED: PHARMACY ORDERED LAB XX ONE (20:45)
[2016-03-28] MEDS: VANCOMYCIN 1,000 MG/NS 250 ML IV SCH ×2 (22:32)
[2016-03-29] VITALS (16 sets, daily range): BP systolic 81–96; BP diastolic 57–68; PULSE 100–112; RESP 14–22; TEMP 97.8–98.6; O2SAT 91–100
[2016-03-29 06:14] LABS: AUTOMATED NEUTROPHIL # 5.6 TH/MM3 (1.8-7.7); BASOPHIL % 0.1 % (0.0-2.0); EOSINOPHIL % 0.2 % (0.0-4.0); HEMATOCRIT 38.4 % (39.0-51.0); HEMO FLAGS DIFF FINAL; LYMPH % 4.7 % (9.0-44.0); LYMPHOCYTE # 0.3 TH/MM3 (1.0-4.8); MEAN CELL VOLUME 93.5 FL (80.0-100.0); MEAN CORPUSCULAR HEMOGLOBIN 30.4 PG (27.0-34.0); MEAN CORPUSCULAR HGB CONC 32.6 % (32.0-36.0); MONO % 7.8 % (0.0-8.0); NEUT % 87.2 % (16.0-70.0); PLATELET COUNT 512 TH/MM3 (150-450); RED BLOOD COUNT 4.11 MIL/MM3 (4.50-5.90); WHITE BLOOD COUNT 6.5 TH/MM3 (4.0-11.0)
[2016-03-29] MEDS: DIPHENHY/LIDO/MAG/ALUM MOUTHWASH (Adult/Peds) 60 ML BTL SWISH-SWAL SCH ×4 (07:00→21:00)
[2016-03-29] MEDS: DEXT 5%-NACL 0.9% 1000 ML INJ 1,000 ML IV SCH ×3 (07:00→17:00)
[2016-03-29 07:06] LABS: BICARBONATE 24.1 MEQ/L (21.0-32.0); MAGNESIUM 1.6 MG/DL (1.5-2.5); POTASSIUM 3.9 MEQ/L (3.5-5.1)
[2016-03-29 07:21] LABS: CALCIUM-PROTEIN CORRECTED 8.2 MG/DL (8.5-10.1)
[2016-03-29] MEDS: cefTRIAXone INJ 2,000 MG in SODIUM CHLORIDE 0.9% INJ 100 ML IV SCH ×2 (07:22→18:00)
[2016-03-29] MEDS: CYCLOBENZAPRINE HCL 10 MG TAB PO SCH ×3 (07:22→20:37)
[2016-03-29] MEDS: CHLORHEXIDINE GLUCONATE 2 % 1 PACK (2 CLOTHS)(taper/protocol) TOP SCH (07:28)
--- NOTE | 2016-03-29 07:59 | PD.ONC.PN ---
Subjective Subjective Remarks C/o mid back superficial pain. +weakness. Objective Data Date Time Temp Pulse Resp B/P Pulse Ox O2 Delivery O2 Flow Rate FiO2 03/29/16 06:00 108 03/29/16 04:01 98.5 103 17 82/60 92 03/29/16 04:00 103 03/29/16 02:00 112 03/29/16 00:00 103 03/29/16 00:00 98.6 103 14 82/57 91 03/28/16 22:00 109 03/28/16 20:58 94 21 03/28/16 20:00 109 03/28/16 20:00 95 Room Air 03/28/16 20:00 98.7 109 13 77/59 95 03/28/16 18:00 110 03/28/16 17:25 15 03/28/16 16:00 98.8 121 21 96/66 95 03/28/16 16:00 121 03/28/16 15:17 22 03/28/16 14:00 109 03/28/16 12:00 85 03/28/16 12:00 97.5 85 14 88/54 94 03/28/16 10:00 96 03/28/16 08:30 98 21 03/28/16 08:00 97.4 99 25 83/56 96 03/28/16 08:00 99 03/29/16 03/29/16 03/29/16 06:59 14:59 22:59 Intake Total 882 ml Output Total 225 ml Balance 657 ml Result Diagram: 03/29/16 0520 03/29/16 0520 Laboratory Results Laboratory Tests Test 03/29/16 05:20 White Blood Count 6.5 TH/MM3 Red Blood Count 4.11 MIL/MM3 Hemoglobin 12.5 GM/DL Hematocrit 38.4 % Mean Corpuscular Volume 93.5 FL Mean Corpuscular Hemoglobin 30.4 PG Mean Corpuscular Hemoglobin 32.6 % Concent Red Cell Distribution Width 17.0 % Platelet Count 512 TH/MM3 Mean Platelet Volume 8.2 FL Neutrophils (%) (Auto) 87.2 % Lymphocytes (%) (Auto) 4.7 % Monocytes (%) (Auto) 7.8 % Eosinophils (%) (Auto) 0.2 % Basophils (%) (Auto) 0.1 % Neutrophils # (Auto) 5.6 TH/MM3 Lymphocytes # (Auto) 0.3 TH/MM3 Monocytes # (Auto) 0.5 TH/MM3 Eosinophils # (Auto) 0.0 TH/MM3 Basophils # (Auto) 0.0 TH/MM3 CBC Comment DIFF FINAL Differential Comment Sodium Level 139 MEQ/L Potassium Level 3.9 MEQ/L Chloride Level 105 MEQ/L Carbon Dioxide Level 24.1 MEQ/L Anion Gap 10 MEQ/L Blood Urea Nitrogen 26 MG/DL Creatinine 0.45 MG/DL Estimat Glomerular Filtration 196 ML/MIN Rate Random Glucose 100 MG/DL Calcium Level 7.0 MG/DL Protein Corrected Calcium 8.2 MG/DL Magnesium Level 1.6 MG/DL Total Protein 4.8 GM/DL Culture Results Microbiology Date/Time Procedure Status Source Growth 03/26/16 13:45 Gram Stain - Final Complete Fluid Peritoneal Fluid 03/26/16 13:45 Body Fluid Culture - Final Complete Fluid Peritoneal Fluid NO GROWTH IN 72 HRS.--AEROBICALLY OR ... Administered Medications Medications (Trade) Dose Ordered Sig/Maude Route PRN Reason Start Time Stop Time Status Last Admin Dose Admin Ceftriaxone Sodium/Sodium Chloride (Rocephin Inj/NS Inj) 100 ml @ 200 mls/hr Q12H IV 03/26/16 06:00 03/29/16 07:22 IV Flush (NS Flush) 2 ml BID FLUSH 03/25/16 21:00 03/28/16 22:32 Ondansetron HCl 4 mg 4 mg Q6H PRN IVP NAUSEA OR VOMITING 03/25/16 18:30 03/27/16 21:28 Vancomycin HCl 1000 mg/Sodium Chloride 250 ml @ 250 mls/hr Q24H IV 03/25/16 21:00 03/28/16 22:32 Dextrose/Sodium Chloride (D5W-NS 1000 ml Inj) 1,000 ml @ 100 mls/hr Q10H IV 03/25/16 23:00 03/29/16 07:22 Chlorhexidine Gluconate (Chlorhexidine 2% Cloth) 3 pack DAILY@04 TOP 03/26/16 04:00 03/30/16 04:01 03/29/16 07:28 Albumin Human (Albumin 25% Inj) 25 gm Q12H IV 03/26/16 10:00 03/28/16 22:31 Lidocaine/ Diphenhydr/Alum/ Mg/Simeth (Magic Mouthwash Pediatric/Adult Liq) 5 ml ACHS SWISH-SWAL 03/26/16 11:00 03/26/16 16:05 Morphine Sulfate (Morphine Inj) 2 mg Q4HR PRN IV PUSH breakthrough pain 03/26/16 17:45 03/28/16 17:20 Acetaminophen/ Hydrocodone Bitart (Emmaus 5-325 Mg) 1 tab Q6H PRN PO pain 03/26/16 17:45 03/28/16 22:59 Calcium Carbonate (Tums Chew) 500 mg Q12HR CHEW 03/27/16 11:00 03/28/16 22:31 Cyclobenzaprine HCl (Flexeril) 5 mg Q8HR PO 03/28/16 14:00 03/29/16 07:22 Objective Remarks GENERAL: Cachectic and weak. SKIN: Warm and dry. HEAD: Normocephalic. EYES: No scleral icterus. No injection or drainage. NECK: Supple, trachea midline. No JVD or lymphadenopathy. LYMPHATIC: No adenopathy. CARDIOVASCULAR: Regular rate and rhythm without murmurs. RESPIRATORY: Breath sounds equal bilaterally. No accessory muscle use. GASTROINTESTINAL: Abdomen soft, distended, +fluid wave. EXTREMITIES: No cyanosis, or edema. MUSCULOSKELETAL: Adequate muscle tone. Pain in midback NEUROLOGICAL: No obvious focal deficit. Awake, alert, and oriented x3. PSYCHIATRIC: Appropriate mood and affect; insight and judgment normal. Assessment/Plan Assessment 1. Recurrent ascites since September of this year. He has had multiple large volume paracentesis. All the cytology has been negative for malignancy. CT of the abdomen and pelvis showed peritoneal implants. MRI showed abnormal nodularity of the peritoneum with possible omental thickening. CA15-3 and CA-125 was elevated but non specific. CT of the chest did not show clear evidence of metastatic disease. EGD showed ulcer, gastritis, esophagitis. Colonoscopy was a poor prep but no obvious mass noted. He left against medical advice the last time he was here. He now represented with increased shortness of breath and tense ascites. He had another paracentesis and removal of 16 liters of clear yellow fluid 03/26. I told the patient this appeared to be malignancy and the prognosis is poor. He had biopsy of peritoneal implant 03/28. 2. Anorexia. He most likely has an underlying malignancy. 3. Acute renal failure likely due to third spacing. His creatinine has improved after the paracentesis. 4. Metabolic acidosis. He was started on antibiotic to cover for possible sepsis. 5. Back pain, he stated that it is superficial. Difficult to give him morphine due to hypotension. Try lidoderm. Plan PLAN: Await path of peritoneal implant biopsy. Further treatment recommendation would depend on tissue diagnosis but option is limited if he has mets carcinoma given his poor performance status. Try lidoderm patch for back pain. Kane Calix MD Mar 29, 2016 07:59
--- NOTE | 2016-03-29 08:50 | HHI.PR ---
Subjective Remarks Patient is in bed, says he had pain in his back. No cp, sob. Has nausea but did not vomit. Not eating much, has decreased appetite. No fevers or chills. Complaints of distended abdomen. Objective Vitals Vital Signs Date Time Temp Pulse Resp B/P Pulse Ox O2 Delivery O2 Flow Rate FiO2 03/29/16 08:46 93 21 03/29/16 06:00 108 03/29/16 04:01 98.5 103 17 82/60 92 03/29/16 04:00 103 03/29/16 02:00 112 03/29/16 00:00 103 03/29/16 00:00 98.6 103 14 82/57 91 03/28/16 22:00 109 03/28/16 20:58 94 21 03/28/16 20:00 109 03/28/16 20:00 95 Room Air 03/28/16 20:00 98.7 109 13 77/59 95 03/28/16 18:00 110 03/28/16 17:25 15 03/28/16 16:00 98.8 121 21 96/66 95 03/28/16 16:00 121 03/28/16 15:17 22 03/28/16 14:00 109 03/28/16 12:00 85 03/28/16 12:00 97.5 85 14 88/54 94 03/28/16 10:00 96 I/O 03/28/16 03/28/16 03/28/16 03/29/16 03/29/16 03/29/16 06:59 14:59 22:59 06:59 14:59 22:59 Intake Total 600 ml 1315 ml 916 ml 882 ml Output Total 250 ml 275 ml 225 ml 225 ml Balance 350 ml 1040 ml 691 ml 657 ml Intake Oral 500 ml IV Total 600 ml 815 ml 916 ml 882 ml Output Urine Total 250 ml 275 ml 225 ml 225 ml # Bowel Movements 0 Result Diagram: 03/29/16 0520 03/29/16 0520 Imaging Last Impressions Abdomen Biopsy CT 03/27/16 0000 Signed Impressions: Service Date/Time: February 12:02 - CONCLUSION: Uncomplicated CT guided biopsy of a focal soft tissue density on the right peritoneum.. Alonso Oneil MD Cyst Biopsy Asp-Paracentesis US 03/26/16 0000 Signed Impressions: Service Date/Time: Saturday, March 26, 2016 13:08 - CONCLUSION: Uncomplicated ultrasound guided paracentesis. Alonso Oneil MD Chest X-Ray 03/25/16 1718 Signed Impressions: Service Date/Time: Friday, March 25, 2016 17:34 - CONCLUSION: Almost complete resolution of the previously seen the right lung base consolidation. Gabrielle Tipton MD Objective Remarks GENERAL: This is a patient who is severely cachectic with bitemporal wasting. SKIN: Bilateral buttocks pressure ulcers present on admission. Cool and dry. HEAD: Atraumatic. Normocephalic.Bitemporal waisting. EYES: No scleral icterus. No injection or drainage. ENT: Nose without bleeding, purulent drainage. NECK: Trachea midline. No JVD or lymphadenopathy. CARDIOVASCULAR: Regular rate and rhythm without murmurs, gallops, or rubs. Dependent edema noted right paraspinal thoracic and lumbar areas. 2-3+ edema ankles and feet. RESPIRATORY: No wheezes, rales. Right upper lobe with expiratory rhonchi; otherwise lungs clear to auscultation in other giles. GASTROINTESTINAL: Abdomen mildly tender with palpation, less distended. No guarding. MUSCULOSKELETAL: Extremities without clubbing, cyanosis. No calf tenderness. Back pain palpable paraspinal around the level of T11. NEUROLOGICAL: Awake and alert. Motor and sensory grossly within normal limits. Normal speech. Procedures -S/P paracentesis -CT guided biopsy of omentum by IR 03/28/16. A/P Problem List: (1) Severe sepsis ICD Code: A41.9 Status: Acute (2) Hyponatremia ICD Code: E87.1 Status: Acute (3) Hyperkalemia ICD Code: E87.5 Status: Resolved (4) Increased anion gap metabolic acidosis ICD Code: E87.2 Status: Acute (5) CHELY (acute kidney injury) ICD Code: N17.9 Status: Acute (6) Thrombocytosis ICD Code: D47.3 Status: Acute (7) Hypoglycemia ICD Code: E16.2 Status: Acute (8) Severe protein-calorie malnutrition ICD Code: E43 Status: Acute (9) Hematemesis ICD Code: K92.0 Status: Acute Assessment and Plan This is a 55-year-old male with past medical history of ascites for which he has gotten multiple ultrasound-guided paracentesis with drainage of large amount of ascites for about the past 6 months. He is here for worsening ascites and shortness of breath and had significant hypotension in the ER with a blood pressure of 77/52 requiring IV albumin and fluids. He is also tachycardic and WBC is elevated at 18.8 with neutrophilia. Lactic acid elevated at 3.1. Potassium 6.6 on admission and sodium is low at 126. Anion gap is elevated at 16 and he shows acute kidney injury with BUN of 71, creatinine 1.95, estimated GFR 36. Hypoglycemia noted with glucose initially 58 and 48 on repeat BMP. Patient BNP 1846. He is notably cachectic with bitemporal wasting and has a low albumin 1.9. Severe sepsis - UTI vs SBP Metabolic acidosis Hypotension Buttocks with pressure wounds, present on admission. Stage 2 pressure injury to sacrum that is resolving. Also stage 4 left ischium pressure injury. Has right upper thigh between hip and ischium skin loss not pressure related. Consult wound care nurse, following. Cleanse wounds with NS and apply foam dressings to change every 3 days or PRN for saturation or dislodgement - Vancomycin IV with pharmacy consult for assistance with therapeutic monitoring and dosing - Rocephin 2 g IV every 12 hours - Blood cultures 2 and urine culture pending; follow results - continuous cardiac telemetry - Albumin 50 g IV 1 dose for severe hypotension 03/25 - Start Albumin 25 g IV bid 03/26 - Received albumin 25 g IV once 03/27, - Increase albumin to 50 g bid IV and bolus of 250 cc NS 03/29 as patient hypotensive - D5 normal saline at 100 cc per hour.Monitor BS. 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 difficile toxin negative - Lactic acid sepsis protocol Ascites - S/P Ultrasound-guided abdominal paracentesis with removal if 16L -S/P LP and CT guided biopsy of omentum by IR 03/28/16. MRI reviewed shows nodularity of the peritoneum with possible omental thickening. CA 15-3 and CA -125 elevated but non specific CT chest no evidence of metastatic disease EGD recent last admission showed ulcer gastritis, esophagitis Colonoscopy recent last admission poor prep however no obvious mass Note patient left AMA last admission and was a plan for biopsy. Patient with anorexia, severe protein beverley malnutrition likely has underlying malignancy. - Add marinol for anorexia GI consulted will hold on any intervention, doesn't plan for colonoscopy Hem/onc consulted Dr Calix appreciate recommendations. S/P biopsy by IR CT abdomen of the omentum, results pending Hyponatremia - initial sodium 126, slowly trending up - D5NS at 100 cc/hr - recheck BMP Hyperkalemia - 6.6 on admission. Resolved - Given D50, insulin, and calcium gluconate in the ER. - Continue wit po supplement - Received D50- 50 cc IV push, and regular insulin 10 units IV Increased anion gap metabolic acidosis. Resolving - Anion gap closed - We'll continue to monitor with repeat BMP Acute kidney Insufficiency Hepato renal syndr, renal indices improved after removal of 16L (paracentesis) - IV fluid hydration with D5 normal saline at 100 cc/h - Avoid nephrotoxins - Repeat BMP and follow trends Thrombocytosis, most likely reactive. monitor . Stable and no signs of bleeding at this time. - Platelet count 70,000 on admission - Repeat CBC in a.m. Hypoglycemia - D50 IV one full vial - Recheck BMP for glucose level Severe protein calorie malnutrition - Consult dietitian to assist with recommendations for dietary intake Hematemesis - Serial H/H stable. Monitor h/h - Transfuse if needed - Consult GI DVT prophylaxis - SCDs - chemoprophylaxis contraindicated; hematemesis Discussed Condition With Patient, nurse Code status: DNR Patient says he want comfort care, however he wants all test done and lots of pain meds at this time. Palliative care consulted for goals of care, pain management as patient is asking for pain meds, however BP is very low. Palliative care also consulted as he says he wants comfort care. Chiquita Zhao MD Mar 29, 2016 08:50
[2016-03-29] MEDS ORDERED: SODIUM CHLOR 0.9% 250 ML INJ 250 ML IV ONE ×2 (09:00→18:30)
[2016-03-29] MEDS: CALCIUM CARBONATE 500 MG CHEWABLE TAB CHEW SCH ×4 (09:00→21:00)
[2016-03-29] MEDS: MAGNESIUM OXIDE 400 MG TAB PO SCH (09:49)
[2016-03-29] MEDS: ACETAMINOPHEN/HYDROcodone 325 MG/5 MG TAB PO PRN ×3 (09:49→20:37)
[2016-03-29] MEDS: LIDOCAINE HCL 5% PATCH TD SCH (09:50)
[2016-03-29] MEDS: SODIUM CHLORIDE 0.9% FLUSH 5 ML FLUSH FLUSH SCH (09:50)
[2016-03-29] MEDS: ALBUMIN HUMAN 25% 25 GM/100 ML BAGP IV SCH ×2 (10:00→20:38)
--- NOTE | 2016-03-29 10:25 | HHI.GIFU ---
Subjective Remarks Resting in bed. C/O mid/lower back pain. Getting pain meds for this. No n/v. No abdominal pain. Tolerating diet. Had omental biopsy yesterday (Anu Connor) Objective Vitals I&O Vital Signs Date Time Temp Pulse Resp B/P Pulse Ox O2 Delivery O2 Flow Rate FiO2 03/29/16 08:46 93 21 03/29/16 08:00 102 03/29/16 07:00 93 Room Air 03/29/16 06:00 108 03/29/16 04:01 98.5 103 17 82/60 92 03/29/16 04:00 103 03/29/16 02:00 112 03/29/16 00:00 103 03/29/16 00:00 98.6 103 14 82/57 91 03/28/16 22:00 109 03/28/16 20:58 94 21 03/28/16 20:00 109 03/28/16 20:00 95 Room Air 03/28/16 20:00 98.7 109 13 77/59 95 03/28/16 18:00 110 03/28/16 17:25 15 03/28/16 16:00 98.8 121 21 96/66 95 03/28/16 16:00 121 03/28/16 15:17 22 03/28/16 14:00 109 03/28/16 12:00 85 03/28/16 12:00 97.5 85 14 88/54 94 I/O 03/28/16 03/28/16 03/28/16 03/29/16 03/29/16 03/29/16 07:00 15:00 23:00 07:00 15:00 23:00 Intake Total 600 ml 1315 ml 916 ml 882 ml Output Total 250 ml 275 ml 225 ml 225 ml Balance 350 ml 1040 ml 691 ml 657 ml Intake Oral 500 ml IV Total 600 ml 815 ml 916 ml 882 ml Output Urine Total 250 ml 275 ml 225 ml 225 ml # Bowel Movements 0 Laboratory Laboratory Tests Test 03/29/16 05:20 White Blood Count 6.5 Red Blood Count 4.11 Hemoglobin 12.5 Hematocrit 38.4 Mean Corpuscular Volume 93.5 Mean Corpuscular Hemoglobin 30.4 Mean Corpuscular Hemoglobin 32.6 Concent Red Cell Distribution Width 17.0 Platelet Count 512 Mean Platelet Volume 8.2 Neutrophils (%) (Auto) 87.2 Lymphocytes (%) (Auto) 4.7 Monocytes (%) (Auto) 7.8 Eosinophils (%) (Auto) 0.2 Basophils (%) (Auto) 0.1 Neutrophils # (Auto) 5.6 Lymphocytes # (Auto) 0.3 Monocytes # (Auto) 0.5 Eosinophils # (Auto) 0.0 Basophils # (Auto) 0.0 CBC Comment DIFF FINAL Differential Comment Sodium Level 139 Potassium Level 3.9 Chloride Level 105 Carbon Dioxide Level 24.1 Anion Gap 10 Blood Urea Nitrogen 26 Creatinine 0.45 Estimat Glomerular Filtration 196 Rate Random Glucose 100 Calcium Level 7.0 Protein Corrected Calcium 8.2 Magnesium Level 1.6 Total Protein 4.8 Date/Time Procedure Status Source Growth 03/26/16 13:45 Gram Stain - Final Complete Fluid Peritoneal Fluid 03/26/16 13:45 Body Fluid Culture - Final Complete Fluid Peritoneal Fluid NO GROWTH IN 72 HRS.--AEROBICALLY OR ... 03/25/16 21:50 Urine Culture - Final Complete Urine Clean Catch NO GROWTH IN 48 HOURS. 03/25/16 19:18 Aerobic Blood Culture - Preliminary Resulted Blood Peripheral NO GROWTH IN 3 DAYS 03/25/16 19:18 Anaerobic Blood Culture - Preliminary Resulted Blood Peripheral NO GROWTH IN 3 DAYS Imaging Last Impressions Abdomen Biopsy CT 03/27/16 0000 Signed Impressions: Service Date/Time: February 12:02 - CONCLUSION: Uncomplicated CT guided biopsy of a focal soft tissue density on the right peritoneum.. Alonso Oneil MD Cyst Biopsy Asp-Paracentesis US 03/26/16 0000 Signed Impressions: Service Date/Time: Saturday, March 26, 2016 13:08 - CONCLUSION: Uncomplicated ultrasound guided paracentesis. Alonso Oneil MD Chest X-Ray 03/25/16 1718 Signed Impressions: Service Date/Time: Friday, March 25, 2016 17:34 - CONCLUSION: Almost complete resolution of the previously seen the right lung base consolidation. Gabrielle Tipton MD Physical Exam HEENT: Cachexia, CHEST: CTA, Resp. Even and unlabored. CARDIAC: RRR. ABDOMEN: Soft, distended with ascites, mild tenderness ; no hepatosplenomegaly ; bowel sounds are present in all four quadrants EXTREMITIES: No clubbing, cyanosis, or edema. 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 (Anu Connor) Assessment and Plan Plan ASSESSMENT: - Recurrent ascites. Pt has had recurrent ascites since September of 2015 of unknown etiology, requiring frequent paracentesis with large amount of fluids removal, he had paracentesis today and 16 L removed. He reports that he has lost 40- 50 lbs over the past 7 months unintentionally. He had a recent admission and was discharged on 03/14/16, he had extensive work up including liver work up , CT, MRI, EGD, oncology consult and diagnostic paracentesis. During that admission, IR was consulted for bx of omentum, but wasn't able to do. Cytology showed atypical cells. S/P EGD/Incomplete colonoscopy (03/12/16)----> hiatal hernia, duodenal bulb ulcer, gastritis, esophagitis, poor prep, bx failed to reveal any malignancy, and severe ulcerative acute esophagitis. He refused to repeat colonoscopy. AFP 1.6, CEA 2.7, Ca 15-3 41.7, Ca 19-9 8.2, Ca 125 110.2. Hepatitis panel negative, high KATALINA at 1:80, diffuse pattern, AMA negative, ASMA negative, Ceruloplasmin 23, Alpha 1 antitrypsin 232. LFTs normal. MRI showed abnormal nodularity of the peritoneums with possible omental thickening and large volume of free fluids suggesting primary or secondary peritoneal neoplasms or infection. Of note, he was also exposed to unpasteurized milk as a child and TB Gold was indeterminate. He continues to have poor PO intake, recurrent ascites, reflux, bile emesis. He is extremely cachexia. He denies hematemesis, melena or hematochezia. S/P Omentum biopsy, pathology pending. Hospice Consulted. - Omental thickening, nodularity. S/P abnormal nodularity of the peritoneums with possible omental thickening and large volume of free fluids suggesting primary or secondary peritoneal neoplasms vs. infections. S/P Bx, pathology pending. - Pressure ulcer- wound care per primary - CHELY- dehydration, poor PO intake, this worsening, consider nephrology consult - Abnormal weight loss. 50 lb weight loss over 7 months - Severe electrolyte abnormalities with hyponatremia, hyperkalemia. Poor PO intake, worsening kidney function Plan: - SHELIA - Await bx results - Albumin - Oncology on the case - Hospice consulted - Supportive care - Further recommendations to follow based on results of above - Patient seen and examined by Dr. Kevin and myself and this note is written on his behalf. (Anu Connor) Physician Comments Seen with Anu, plan as above, no further recommendations from GI point of view , will sign off for now, please notify us if needed. (Luther Kevin MD) Anu Connor Mar 29, 2016 10:25 Luther Kevin MD Mar 29, 2016 11:35
--- NOTE | 2016-03-29 14:34 | PD.CONS ---
Consult Service Palliative Care Consult Requested By Dr Zhao . Primary Care Physician No Primary Care Physician Reason for Consultation a. To assist with evaluation and management of symptoms including: Dyspnea, pain, ascites b. To assist medical decision maker(s) with: better understanding of current medical conditions; weighing benefits/burdens of medical treatment options; making medical treatment decisions. HPI History of Present Illness This 55-year-old male presented to the ED on 03/25/16 with complaints of dyspnea , increasing abdominal girth. She has a history of malignant ascites onset earlier this year. Was just recently admitted at [facility] 03/07 through 03/14- during which admission he had paracentesis removing of 12 L of fluid. Fluid removed revealed atypical cells, appeared to be reactive mesothelial cells, though further evaluation with endoscopy, colonoscopy revealed no source of malignancy. Patient returned to the ED again because of increased shortness of breath and abdominal girth. He also reported nausea and vomiting. He feels a paracentesis might help symptoms resolved. Patient reported had been at his usual health state up until about 6 months ago when the ascites again. Denies alcohol or drug use. No fever or chills. No chest pain. No urinary symptoms. No melena or hematochezia. * ED course: Hyperkalemia potassium 6.6., received Kayexalate , calcium gluconate IV, insulin, glucose. Was initiated on Rocephin. CXR= elevated right hemidiaphragm no other acute process identified. Positive volume loss. WBC 18.8. Platelets 770. BUN 71, creatinine 1.95. GFR 36. Lactic acid 3.1. BNP 1846. LFTs unremarkable. Albumin low 1.9. Hypotension during ED course requiring IV fluids and albumin. He was admitted for further evaluation and management of shortness of breath, sepsis, malignant ascites. [place] cultures pending. Stool for C. difficile pending. Plan for ultrasound-guided paracentesis when stable. * 03/27: Blood cultures no growth to date. GI was consulted , patient underwent ultrasound guided paracentesis with removal of 16 L of fluid 03/26. Patient also reporting weight loss of about 4050 pounds over the past 7 months unintentionally. Decreased oral intake due to frequent vomiting bile. GI notes during most recent admission IR was consulted for biopsy of omentum but wasn't able to do. GI workup from most recent admission included: [ S/P EGD/ Incomplete colonoscopy (03/12/16)----> hiatal hernia, duodenal bulb ulcer, gastritis, esophagitis, poor prep, bx failed to reveal any malignancy, and severe ulcerative acute esophagitis. He refused to repeat colonoscopy. AFP 1.6, CEA 2.7, Ca 15-3 41.7, Ca 19-9 8.2, Ca 125 110.2. Hepatitis panel negative , high KATLAINA, AMA, ASMA negative, Ceruloplasmin 23, Alpha 1 antitrypsin 232. LFTs normal. MRI showed abnormal nodularity of the peritoneums with possible omental thickening and large volume of free fluids suggesting primary for secondary peritoneal neoplasms. 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 CHELY worsening --consider nephrology consult. Oncology has been consulted and is following. Hospice has been consulted ,will meet with patient and family. * Oncology consulted 03/27 they notes he has had multiple recent admissions and ED presentations for ascites and paracentesis though he has declined admission previous times. Oncology notes the patient left AMA during last hospitalization , IR was unable to complete omentum biopsy due to unavailability of equipment. Dr Calix notes MRI indicating abnormal nodularity of peritoneum with possible omental thickening CA 153 and [id number] were elevated but nonspecific. T chest did not indicate a clear evidence of metastatic disease. EGD with no malignant findings. Anoscopy with poor prep but no obvious malignancy noted. Oncology notes extensive discussion with patient that he appeared to have a malignancy and prognosis was poor. Patient apparently still requesting further aggressive workup therefore radiology has again been consulted for biopsy of peritoneal implant. Anorexia likely due to underlying malignancy. ARF likely secondary to third spacing improved after paracentesis. Further recommendations depending on pathology. * 03/28biopsy of peritoneum by IR . Patient stable no nausea or vomiting. Reports pain from ulcer on buttocks. Oncology notes again discussion with patient regarding the poor prognosis patient requesting aggressive workup. Patient was asking about. Patient asks about peritoneal catheter placement, Dr. Calix notes this would be reasonable if patient decided to proceed with comfort care with hospice, further notes that with discussion of hospice patient became angry he was still wanting to proceed with biopsy. Oncology further notes that treatment options limited if he has metastatic carcinoma given poor performance status. * 03/29medical attending notes further discussion with patient and he is leaning towards comfort care and requests DNR status. Hospice has again been consult did though hospice reports in meeting with patient he is not interested in comfort treatments at this time wishes to continue to seek aggressive treatments. [place] care consulted to assist with clarification of goals of treatment as well as pain management in the presence of hypotension. GI has signed off. WBC down to 6.5. Platelets 512. Chemistry improved, renal function improved BUN 26. Creatinine 0.45. Note ongoing hypotension blood pressures ranging from 70s systolic to 90s systolic. During last admission blood pressures [place] [id number]. Patient seen in room no visitors present. He is initially sleeping though arouses some for my exam. He is mostly oriented and appropriate and upon further probing/questioning tells me that he "doesn't need to chit chat " that he knows what's going on and doesn't need that many questions. He repeatedly informs me that his IQ is greater than 150. He has a somewhat withdrawn affect and reluctantly engages in any conversation, very guarded with any questions. I attempt to explore his understanding of condition she tells me that basically "they don't know "what's going on and that there'll just guessing at this point. I did gently explore with him that all of the information is indicating malignancy/cancer though we are not certain of the type. I attempt to explore with him what they have told him about treatment options and he tells me that no one will now until they know what it is and that the cancer doctor told him they will talk about treatments once a know what it is. Asked him how his recent meeting with hospice went he tells me that "I am meeting with you right now hospice and palliative are the same I don't need to tell you how went you can see for yourself." Attempt to explore the difference between hospice and palliative and that palliative may offer assistance with symptom management pending additional medical information, and that additionally we can help him clarify information and treatment preferences for the medical team. He endorses that he doesn't need any help clarifying anything that he just needs better pain control and people like me coming in and waking him up when he is finally getting to sleep do not help with this. Limited ROS due to his unwillingness to engage however he does endorse pain he describes as the back of his throat to his back that occurs primarily with eating and swallowing. Does not Endorse abdominal pain, he indicates that has subsided some since paracentesis. Does Not endorse any shortness of breath; tells me that that too has resolved since paracentesis, and that was never his primary concern. He endorses that his primary concern and complaint is pain in the back of his throat which radiates to his mid upper back. Attempt further exploration of goals upon finding of pathology if it is cancerous versus non, and further explore that he may not be a candidate for chemotherapy and other aggressive measures -----he tells me that if it is cancer that he plans to pursue alternative treatment measures. I asked him where in he tells me not here, at a Medical Center in [facility]. He does not wish to elaborate which alternative therapies he wishes to pursue. He only allows me to examine his back to further localize his pain, does not wish to participate further in physical exam. To exam no obvious deformity etc. noted where he is localizing pain. Localizes pain to upper thoracic region currently has lidocaine patch in place for which indicates does not help much. He indicates the pain medicines he received earlier (Flexeril, Cook) did nothing to help his pain though nursing does indicate that he slept for approximately 3 hours following his dose. Function/Cognitive Trajectory Patient reports lives at home with his father and apparently was independent. Limited history as patient reluctant to talk. Review of Systems ROS Limitations: Uncooperative (limited ROS as patient does not wish to answer all my questions) Constitutional: COMPLAINS OF: Weight loss, Change in appetite, Pain (back\\ throat) Respiratory: COMPLAINS OF: Shortness of breath Gastrointestinal: COMPLAINS OF: Abdominal pain (some, though none currently), Nausea, Vomiting, Difficulty Swallowing (indicates painful at the back of his throat through to the back with any swallowing) Past Family Social History Coded Allergies: No Known Allergies (Unverified , 03/07/16) Past Medical History Malignant ascites . Past Surgical History Multiple ultrasound-guided paracentesis . Reported Medications No active reported medications Current Medications Medications (Trade) Dose Ordered Sig/Maude Route Start Time Stop Time Status Last Admin (Rocephin Inj/NS Inj) 100 ml @ 200 mls/hr Q12H IV 03/26/16 06:00 03/29/16 07:22 (NS Flush) 2 ml UNSCH PRN FLUSH 03/25/16 18:30 (NS Flush) 2 ml BID FLUSH 03/25/16 21:00 03/29/16 09:50 (Tylenol) 650 mg Q4H PRN PO 03/25/16 18:30 (Zofran Inj) 4 mg Q6H PRN IVP 03/25/16 18:30 03/27/16 21:28 (Compazine Supp) 25 mg Q12H PRN PA 03/25/16 18:30 (Dulcolax Supp) 10 mg DAILY PRN PA 03/25/16 18:30 (Milk Of Magnesia Liq) 30 ml Q12H PRN PO 03/25/16 18:30 Sennosides 17.2 mg 17.2 mg Q12H PRN PO 03/25/16 18:30 Pharmacy Profile Note 0 ml @ 0 mls/hr UNSCH OTHER 03/25/16 20:45 Vancomycin HCl 1000 mg/Sodium Chloride 250 ml @ 250 mls/hr Q24H IV 03/25/16 21:00 03/28/16 22:32 (D5W-NS 1000 ml Inj) 1,000 ml @ 100 mls/hr Q10H IV 03/25/16 23:00 03/29/16 07:00 Miscellaneous Information Patient in critical care unit? Ass... [id number] XX 03/25/16 23:30 (Chlorhexidine 2% Cloth) 3 pack DAILY@04 TOP 03/26/16 04:00 03/30/16 04:01 03/29/16 07:28 (Chlorhexidine 2% Cloth) 3 pack UNSCH PRN TOP 03/25/16 23:30 03/30/16 23:21 (Magic Mouthwash Pediatric/Adult Liq) 5 ml ACHS SWISH-SWAL 03/26/16 11:00 03/26/16 16:05 (Morphine Inj) 2 mg Q4HR PRN IV PUSH 03/26/16 17:45 03/28/16 17:20 (Cook 5-325 Mg) 1 tab Q6H PRN PO 03/26/16 17:45 03/29/16 13:44 (Tums Chew) 500 mg Q12HR CHEW 03/27/16 11:00 03/29/16 09:49 (Flexeril) 5 mg Q8HR PO 03/28/16 14:00 03/29/16 09:49 (Pill Splitter) 1 ea UNSCH PRN OTHER 03/28/16 14:00 (Tums Chew) 500 mg Q12HR CHEW 03/29/16 09:00 03/29/16 09:00 (Mag-Ox) 400 mg DAILY PO 03/29/16 09:00 03/29/16 09:49 (Lidoderm 5% Patch.12 Hr) 1 patch DAILY TD 03/29/16 09:00 03/29/16 09:50 Miscellaneous Information 1 HS TD 03/29/16 21:00 Miscellaneous Information SPECIFIC LAB TO BE DRAWN:[facility] DATE TO BE DRM[facility].. ONCE ONCE XX 03/29/16 20:45 03/29/16 20:46 (Albumin 25% Inj) 50 gm Q12H IV 03/29/16 10:00 03/29/16 10:00 Family History Father in MVA Mother with hypertension Denies family history of cancer, diabetes, or heart disease No siblings. Substance Use Tobacco: Smoker1 PPDx Alcohol: None Prescription med abuse: None Illicits: None Psychosocial History Patient originally from [place] though has lived in [place] for much of his life. Supported by his father, as well as a close friend named Brodie. 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 Not , no children. Spiritual/Cultural Factors Rastafari Living Will: Never completed Health Care Surrogate: Never completed Ethical and Legal Issues Patient appears to be fairly oriented and appropriate though difficult to fully assess insight. Affect is withdrawn and very limited engagement. Appears he may be able to make his own decisions. Not , no children. Appears per [place] statutes his father would be legal decision maker if he were to become incapacitated. I attempt to explore health care surrogate designation with him he indicates he would want his father called in the case of an emergency Physical Exam Vital Signs Date Time Temp Pulse Resp B/P Pulse Ox O2 Delivery O2 Flow Rate FiO2 03/29/16 12:00 104 03/29/16 10:57 18 03/29/16 10:28 104 03/29/16 10:00 108 20 83/61 92 03/29/16 08:46 93 21 03/29/16 08:00 102 03/29/16 08:00 98.0 105 18 96/68 93 03/29/16 07:00 93 Room Air 03/29/16 06:00 108 03/29/16 04:01 98.5 103 17 82/60 92 03/29/16 04:00 103 03/29/16 02:00 112 03/29/16 00:00 103 03/29/16 00:00 98.6 103 14 82/57 91 03/28/16 22:00 109 03/28/16 20:58 94 21 03/28/16 20:00 109 03/28/16 20:00 95 Room Air 03/28/16 20:00 98.7 109 13 77/59 95 03/28/16 18:00 110 03/28/16 17:25 15 03/28/16 16:00 98.8 121 21 96/66 95 03/28/16 16:00 121 03/28/16 14:00 109 03/28/16 03/29/16 19:00 07:00 Intake Total 1315 ml 1798 ml Output Total 275 ml 450 ml Balance 1040 ml 1348 ml Intake Oral 500 ml IV Total 815 ml 1798 ml Output Urine Total 275 ml 450 ml # Bowel Movements 0 Exam *Limited exam due to patient does not want to participate/allow CONSTITUTIONAL/GENERAL: Very cachectic, frail-appearing patient. Temporal wasting evident. Significant ascites. TUBES/LINES/DRAINS: Peripheral IV upper extremity. SKIN: No jaundice, rashes, or lesions. Reported with pressure ulcer to buttock.No wounds seen anteriorly. Skin temperature appropriate. HEAD: Atraumatic. Normocephalic. CARDIOVASCULAR: Regular rate and rhythm observed on bedside monitor. No peripheral edema observed. RESPIRATORY/CHEST: Symmetric, unlabored respirations on room air. O2 sats low 90s via bedside monitor. Does allow me to examine his back to locate the region that " hurts when he swallows"identifies his upper thoracic region, no palpable or visible abnormalities noted, no point tenderness to palpation, spinous process are quite visible to entire back due to cachectic state. GASTROINTESTINAL: Abdomen round, visibly distended, ascites. Does Not allow me to examine. GENITOURINARY: Hoyos catheter in place-dark yellow urine MUSCULOSKELETAL: Extremities without clubbing, cyanosis, or edema. Extremities extremely thin with significant muscle atrophy 4. NEUROLOGICAL: Awake and alert-oriented times 23 and for the most part seems to have some insight though difficult to assess due to possible underlying behavioral issues.at times cooperative though other times not cooperative, very limited willingness to engage in conversation or exam. Moves all extremities. PSYCHIATRIC: No obvious anxiety/depression. no apparent hallucinations or other psychotic thought process. Somewhat withdrawn affect and guarded, reluctant to answer questions Diagnostic Tests Laboratory Laboratory Tests Test 03/26/16 03/27/16 03/29/16 17:35 15:56 05:20 Hemoglobin 9.8 GM/DL 12.5 GM/DL (13.0-17.0) (13.0-17.0) Hematocrit 29.0 % 38.4 % (39.0-51.0) (39.0-51.0) Creatinine 0.83 MG/DL 0.45 MG/DL (0.60-1.30) (0.60-1.30) Estimat Glomerular Filtration 97 ML/MIN (>89) 196 ML/MIN Rate (>89) White Blood Count 6.5 TH/MM3 (4.0-11.0) Red Blood Count 4.11 MIL/MM3 (4.50-5.90) Mean Corpuscular Volume 93.5 FL (80.0-100.0) Mean Corpuscular Hemoglobin 30.4 PG (27.0-34.0) Mean Corpuscular Hemoglobin 32.6 % Concent (32.0-36.0) Red Cell Distribution Width 17.0 % (11.6-17.2) Platelet Count 512 TH/MM3 (150-450) Mean Platelet Volume 8.2 FL (7.0-11.0) Neutrophils (%) (Auto) 87.2 % (16.0-70.0) Lymphocytes (%) (Auto) 4.7 % (9.0-44.0) Monocytes (%) (Auto) 7.8 % (0.0-8.0) Eosinophils (%) (Auto) 0.2 % (0.0-4.0) Basophils (%) (Auto) 0.1 % (0.0-2.0) Neutrophils # (Auto) 5.6 TH/MM3 (1.8-7.7) Lymphocytes # (Auto) 0.3 TH/MM3 (1.0-4.8) Monocytes # (Auto) 0.5 TH/MM3 (0-0.9) Eosinophils # (Auto) 0.0 TH/MM3 (0-0.4) Basophils # (Auto) 0.0 TH/MM3 (0-0.2) CBC Comment DIFF FINAL Differential Comment Sodium Level 139 MEQ/L (136-145) Potassium Level 3.9 MEQ/L (3.5-5.1) Chloride Level 105 MEQ/L (98-107) Carbon Dioxide Level 24.1 MEQ/L (21.0-32.0) Anion Gap 10 MEQ/L (5-15) Blood Urea Nitrogen 26 MG/DL (7-18) Random Glucose 100 MG/DL (74-106) Calcium Level 7.0 MG/DL (8.5-10.1) Protein Corrected Calcium 8.2 MG/DL (8.5-10.1) Magnesium Level 1.6 MG/DL (1.5-2.5) Total Protein 4.8 GM/DL (6.4-8.2) Result Diagram: 03/29/1620 03/29/16 05 Microbiology Microbiology Date/Time Procedure Status Source Growth 03/26/16 13:45 Gram Stain - Final Complete Fluid Peritoneal Fluid 03/26/16 13:45 Body Fluid Culture - Final Complete Fluid Peritoneal Fluid NO GROWTH IN 72 HRS.--AEROBICALLY OR ... 03/25/16 21:50 Urine Culture - Final Complete Urine Clean Catch NO GROWTH IN 48 HOURS. 03/25/16 19:18 Aerobic Blood Culture - Preliminary Resulted Blood Peripheral NO GROWTH IN 4 DAYS 03/25/16 19:18 Anaerobic Blood Culture - Preliminary Resulted Blood Peripheral NO GROWTH IN 4 DAYS Imaging Last Impressions Abdomen Biopsy CT 03/27/16 0000 Signed Impressions: Service Date/Time: February 12:02 - CONCLUSION: Uncomplicated CT guided biopsy of a focal soft tissue density on the right peritoneum.. Alonso Oneil MD Cyst Biopsy Asp-Paracentesis US 03/26/16 0000 Signed Impressions: Service Date/Time: Saturday, March 26, 2016 13:08 - CONCLUSION: Uncomplicated ultrasound guided paracentesis. Alonso Oneil MD Chest X-Ray 03/25/16 1718 Signed Impressions: Service Date/Time: Friday, March 25, 2016 17:34 - CONCLUSION: Almost complete resolution of the previously seen the right lung base consolidation. Gabrielle Tipton MD Patient/Family Conference Present at Family Conference: Patient Family Conference Time (mins): 25 Family Conference Location: Bedside Issues Discussed: Met with patient briefly at bedside. Attempted to discuss the following: [ Limited discussion due to patient unwilling to engage and either doesn't answer my questions directly or answers them with unrelated answers such as when I ask him questions about anything he repeatedly states his IQ is greater than 150] * Palliative care role, purpose, approach * Additional medical, psychosocial, history * Patients general health, functional status, and cognitive changes in the months leading up to the current hospitalization-limited exploration he indicates he abdominal problems did start several months ago though otherwise he 's been doing fine * Patient understanding of the current medical problems, prognosis--he is very reluctant to engage in conversation, I attempted to talk about oncology evaluation and recommendations thus far * Patients goals of care as best understood from advance directives and/or conversations and/or values--he explains his goals are to seek alternative treatment if his findings are positive for cancer * Likely scenarios comparing ongoing aggressive care with a transition to comfort measures only-review of hospice role-he is not interested at this time * Questions answered to the best of my ability * Palliative care contact information provided He is mostly oriented and appropriate and upon further probing/questioning tells me that he "doesn't need to chit chat " that he knows what's going on and doesn't need that many questions. He repeatedly informs me that his IQ is greater than 150. He has a somewhat withdrawn affect and reluctantly engages in any conversation, very guarded with any questions. I attempt to explore his understanding of condition she tells me that basically "they don't know "what's going on and that there'll just guessing at this point. I did gently explore with him that all of the information is indicating malignancy/cancer though we are not certain of the type. I attempt to explore with him what they have told him about treatment options and he tells me that no one will now until they know what it is and that the cancer doctor told him they will talk about treatments once a know what it is. Asked him how his recent meeting with hospice went he tells me that "I am meeting with you right now hospice and palliative are the same I don't need to tell you how went you can see for yourself." Attempt to explore the difference between hospice and palliative and that palliative may offer assistance with symptom management pending additional medical information, and that additionally we can help him clarify information and treatment preferences for the medical team. He endorses that he doesn't need any help clarifying anything that he just needs better pain control and people like me coming in and waking him up when he is finally getting to sleep do not help with this. Limited ROS due to his unwillingness to engage however he does endorse pain he describes as the back of his throat to his back that occurs primarily with eating and swallowing. Does not Endorse abdominal pain, he indicates that has subsided some since paracentesis. Does Not endorse any shortness of breath; tells me that that too has resolved since paracentesis, and that was never his primary concern. He endorses that his primary concern and complaint is pain in the back of his throat which radiates to his mid upper back. Attempt further exploration of goals upon finding of pathology if it is cancerous versus non, and further explore that he may not be a candidate for chemotherapy and other aggressive measures -----he tells me that if it is cancer that he plans to pursue alternative treatment measures. I asked him where in he tells me not here, at a Medical Center in [facility]. He does not wish to elaborate which alternative therapies he wishes to pursue. He only allows me to examine his back to further localize his pain, does not wish to participate further in physical exam. To exam no obvious deformity etc. noted where he is localizing pain. Localizes pain to upper thoracic region currently has lidocaine patch in place for which indicates does not help much. He indicates the pain medicines he received earlier (Flexeril, Cook) did nothing to help his pain though nursing does indicate that he slept for approximately 3 hours following his dose. Assessment and Plan Disease Oriented Problem List: (1) Abdominal distention (2) Ascites (3) SOB (shortness of breath) (4) Hypotension (5) Hypoglycemia (6) Severe protein-calorie malnutrition (7) CHELY (acute kidney injury) Symptom Scale: (1) Ascites 0-10 Scale: Unable to quantify (2) Dyspnea 0-10 Scale: Unable to quantify (3) Malnutrition 0-10 Scale: Unable to quantify (4) Pain 0-10 Scale: Unable to quantify Pertinent Non-Medical Issues Psychosocial:Patient originally from [place] though has lived in [place] for much of his life. Supported by his father, as well as a close friend named Brodie. 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 Not , no children. Spiritual: Rastafari per EMR Legal:Patient appears to be fairly oriented and appropriate though difficult to fully assess insight. Affect is withdrawn and very limited engagement--appears to have some behavioral/personality component to his behavior/interaction. Appears he may be able to make his own decisions. Not , no children. Appears per [place] statutes his father would be legal decision maker if he were to become incapacitated. I attempt to explore health care surrogate designation with him he indicates he would want his father called in the case of an emergency Ethical issues impacting care: Important Contacts Bhavik Hernandez (father) [phone] Brodie Díaz (friend) [phone] . Prognosis Patient is cachectic, with significant unintentional weight loss. Suspected underlying malignancy though no confirmative pathology. Poor performance status , not likely candidate for aggressive treatment from oncology standpoint. Appropriate for hospice if goals compatible. . Code Status: No Code Plan * Legal decision maker:Patient appears to be fairly oriented and appropriate though difficult to fully assess insight. Affect is withdrawn and very limited engagement--appears to have some behavioral/personality component to his behavior/interaction. Appears he may be able to make his own decisions. Not , no children. Appears per [place] statutes his father would be legal decision maker if he were to become incapacitated. I attempt to explore health care surrogate designation with him he indicates he would want his father called in the case of an emergency * Goals: Goals appear semi-aggressive at this time he wants to continue to await pathology on recent biopsy before making further decisions. He is not interested in hospice at this time. He indicates he may pursue "alternative therapies "at another facility. He agrees that he is elected DNR status already - this is to remain in place. * CODE STATUS: DNR * SYMPTOMS: --Ascites-? Etiology, likely malignancy. Pathology pending. Ongoing ascites for the past several months requiring frequent paracentesis for large amount of volume most recently 03/27 for 16 L. Consider IR for Aspira catheter for frequent drainage. Apparently this has been discussed with patient. --Dyspnea and asked patient does not endorse today he indicates has been fine since the paracentesis and that is not his primary concern. Tolerating room air. We'll continue to monitor. --Paindenies abdominal pain currently says he has had some but has improved since paracentesis. His biggest primary concern is pain described as "at the back of his throat going through to his spine "he endorses that it becomes so bad when he is trying to eat it hurts through the back of his throat to his back. He allows me to examine his back he localizes the pain to the upper thoracic spine region but also continues to describe it as in his throat. He does have some prn medications available --although nursing has administered cautiously as he has had ongoing hypotension. I did attempt to explore this with them however he is closed and does not wish to discuss further and limits my discussion with him telling me that I have woken him up. Could could certainly consider up titration of opiates for pain relief if goals were comfort oriented; however given that he is a DNR and still has somewhat aggressive goals would expect clinical deterioration with up titration of opiates. Given current goals and systolic blood pressures in the range of 70s to 90s would not further increase opiates. --Malnutrition-albumin 1.9. Patient extremely frail, cachectic. Unintentional weight loss of around 40-50 pounds. Poor oral intake secondary to pain and nausea. Today observed him eating some, chewing food up and then spitting it all out into a big cup--he will not elaborate why. He denies nausea during my exam today. Likely 2/2 malignancy. * Palliative care will continue to follow during hospital course as condition evolves, to assist patient/decision-maker with understanding of medical conditions, weighing benefits/burdens of treatment options, for clarification of goals of treatment. Additionally will assist with any symptoms of palliative concern Time Spent Total Floor Time (mins): 45 Face to Face Time (mins): 25 >50% Counseling/Coord of Care: Yes (discuss with primary nurse, medical attending) Thank you for the opportunity to participate in the care of Mr. Hernandez. Attestation To help prompt me to consider important information that might be impacting today's encounter and assessment, information from prior notes written by myself or my colleagues may have been "brought forward" into today's note. My signature on this note, however, is an attestation that I personally performed the exam, history, and/or decision-making noted today, and, unless otherwise indicated, the interactions with patient, family, and staff as well as the review of records all occurred today. I also attest that the listed assessment and stated plan reflect my best clinical judgment today based on the combination of historical information, prior notes, and today's exam/ interactions. When time spent is documented, it refers only to time spent today by the signer, or if indicated, combined time spent today by collaborating physician/nurse practitioner. Raisa Garrett Mar 29, 2016 14:34
[2016-03-29] MEDS: DRONABINOL 2.5 MG CAP PO SCH (16:00)
[2016-03-29] MEDS ORDERED: LORazepam 2 MG/ML VIAL IV PRN (19:00)
[2016-03-29] MEDS ORDERED: fentaNYL 2,500 MCG/NS 250 ML IV SCH (19:00)
[2016-03-29] MEDS ORDERED: ALTEPLASE RECOMBINANT 2 MG VIAL IV FLUSH ONE (20:00)
[2016-03-29] MEDS: VANCOMYCIN 1,000 MG/NS 250 ML IV SCH ×4 (20:39→23:40)
[2016-03-29] MEDS ORDERED: PHARMACY ORDERED LAB XX ONE (20:45)
[2016-03-29] MEDS: REMOVE OLD PATCH TD SCH (21:00)
[2016-03-30] VITALS (11 sets, daily range): BP systolic 89–101; BP diastolic 59–78; PULSE 101–122; RESP 14–20; TEMP 96.7–98.8; O2SAT 91–96
[2016-03-30] MEDS: DEXT 5%-NACL 0.9% 1000 ML INJ 1,000 ML IV SCH ×2 (03:03→12:03)
[2016-03-30] MEDS: ACETAMINOPHEN/HYDROcodone 325 MG/5 MG TAB PO PRN ×2 (03:03→20:19)
[2016-03-30] MEDS: CHLORHEXIDINE GLUCONATE 2 % 1 PACK (2 CLOTHS)(taper/protocol) TOP SCH (04:00)
[2016-03-30] MEDS: CYCLOBENZAPRINE HCL 10 MG TAB PO SCH ×3 (05:26→22:00)
[2016-03-30] MEDS: SODIUM CHLORIDE 0.9% FLUSH 5 ML FLUSH FLUSH SCH ×3 (05:27→20:42)
[2016-03-30] MEDS: cefTRIAXone INJ 2,000 MG in SODIUM CHLORIDE 0.9% INJ 100 ML IV SCH ×2 (05:27→18:36)
[2016-03-30 05:29] LABS: AUTOMATED NEUTROPHIL # 4.3 TH/MM3 (1.8-7.7); BASOPHIL % 0.3 % (0.0-2.0); EOSINOPHIL % 0.8 % (0.0-4.0); HEMATOCRIT 33.9 % (39.0-51.0); HEMO FLAGS DIFF FINAL; LYMPH % 6.4 % (9.0-44.0); LYMPHOCYTE # 0.3 TH/MM3 (1.0-4.8); MEAN CELL VOLUME 92.3 FL (80.0-100.0); MEAN CORPUSCULAR HEMOGLOBIN 31.3 PG (27.0-34.0); MEAN CORPUSCULAR HGB CONC 33.9 % (32.0-36.0); MONO % 9.3 % (0.0-8.0); NEUT % 83.2 % (16.0-70.0); PLATELET COUNT 439 TH/MM3 (150-450); RED BLOOD COUNT 3.67 MIL/MM3 (4.50-5.90); RED CELL DISTRIBUTION WIDTH 17.1 % (11.6-17.2); WHITE BLOOD COUNT 5.2 TH/MM3 (4.0-11.0)
[2016-03-30 05:47] LABS: BICARBONATE 20.2 MEQ/L (21.0-32.0); MAGNESIUM 1.5 MG/DL (1.5-2.5); POTASSIUM 3.7 MEQ/L (3.5-5.1)
[2016-03-30 06:01] LABS: CALCIUM-PROTEIN CORRECTED 8.4 MG/DL (8.5-10.1)
[2016-03-30] MEDS: DIPHENHY/LIDO/MAG/ALUM MOUTHWASH (Adult/Peds) 60 ML BTL SWISH-SWAL SCH ×4 (07:00→20:42)
--- NOTE | 2016-03-30 07:55 | HHI.PR ---
Subjective Remarks Says he can't eat any solid food. However he says he want regular diet and no fluid restriction. He is also refusing magic wash. Still with pain but says is improving. Says fluid in his belly is worsening. No fever or chills. Patient is very rude with staff. Objective Vitals Vital Signs Date Time Temp Pulse Resp B/P Pulse Ox O2 Delivery O2 Flow Rate FiO2 03/30/16 06:00 105 03/30/16 04:00 101 03/30/16 04:00 98.2 101 15 90/65 94 03/30/16 02:00 108 03/30/16 00:00 101 03/30/16 00:00 98.0 101 14 90/59 91 03/29/16 22:00 106 03/29/16 21:15 100 21 03/29/16 20:00 97.8 112 18 85/66 93 03/29/16 20:00 112 03/29/16 19:05 94 Room Air 03/29/16 18:04 105 03/29/16 16:00 102 03/29/16 16:00 98.3 105 22 81/64 92 03/29/16 14:44 18 03/29/16 14:00 100 03/29/16 12:00 104 03/29/16 10:28 104 03/29/16 10:00 108 20 83/61 92 03/29/16 08:46 93 21 03/29/16 08:00 102 03/29/16 08:00 98.0 105 18 96/68 93 I/O 03/29/16 03/29/16 03/29/16 03/30/16 03/30/16 03/30/16 07:00 15:00 23:00 07:00 15:00 23:00 Intake Total 882 ml 1725 ml 1895 ml 1236 ml Output Total 225 ml 300 ml 475 ml 300 ml Balance 657 ml 1425 ml 1420 ml 936 ml Intake Oral 525 ml 250 ml 150 ml IV Total 882 ml 1200 ml 1545 ml 1086 ml Albumin 100 ml Output Urine Total 225 ml 300 ml 475 ml 300 ml # Bowel Movements 0 0 Result Diagram: 03/30/16 0445 03/30/16 0445 Imaging Last Impressions Abdomen Biopsy CT 03/27/16 0000 Signed Impressions: Service Date/Time: February 12:02 - CONCLUSION: Uncomplicated CT guided biopsy of a focal soft tissue density on the right peritoneum.. Alonso Oneil MD Cyst Biopsy Asp-Paracentesis US 03/26/16 0000 Signed Impressions: Service Date/Time: Saturday, March 26, 2016 13:08 - CONCLUSION: Uncomplicated ultrasound guided paracentesis. Alonso Oneil MD Chest X-Ray 03/25/16 1718 Signed Impressions: Service Date/Time: Friday, March 25, 2016 17:34 - CONCLUSION: Almost complete resolution of the previously seen the right lung base consolidation. Gabrielle Tipton MD Objective Remarks GENERAL: This is a patient who is severely cachectic with bitemporal wasting. SKIN: Bilateral buttocks pressure ulcers present on admission. Cool and dry. HEAD: Atraumatic. Normocephalic.Bitemporal waisting. EYES: No scleral icterus. No injection or drainage. ENT: Nose without bleeding, purulent drainage. NECK: Trachea midline. No JVD or lymphadenopathy. CARDIOVASCULAR: Regular rate and rhythm without murmurs, gallops, or rubs. Dependent edema noted right paraspinal thoracic and lumbar areas. 2-3+ edema ankles and feet. RESPIRATORY: No wheezes, rales. Right upper lobe with expiratory rhonchi; otherwise lungs clear to auscultation in other giles. GASTROINTESTINAL: Abdomen mildly tender with palpation, less distended. No guarding. MUSCULOSKELETAL: Extremities without clubbing, cyanosis. No calf tenderness. Back pain palpable paraspinal around the level of T11. NEUROLOGICAL: Awake and alert. Motor and sensory grossly within normal limits. Normal speech. Procedures -S/P paracentesis -CT guided biopsy of omentum by IR 03/28/16. A/P Problem List: (1) Severe sepsis ICD Code: A41.9 Status: Acute (2) Hyponatremia ICD Code: E87.1 Status: Acute (3) Hyperkalemia ICD Code: E87.5 Status: Resolved (4) Increased anion gap metabolic acidosis ICD Code: E87.2 Status: Acute (5) CHELY (acute kidney injury) ICD Code: N17.9 Status: Acute (6) Thrombocytosis ICD Code: D47.3 Status: Acute (7) Hypoglycemia ICD Code: E16.2 Status: Acute (8) Severe protein-calorie malnutrition ICD Code: E43 Status: Acute (9) Hematemesis ICD Code: K92.0 Status: Acute Assessment and Plan This is a 55-year-old male with past medical history of ascites for which he has gotten multiple ultrasound-guided paracentesis with drainage of large amount of ascites for about the past 6 months. He is here for worsening ascites and shortness of breath and had significant hypotension in the ER with a blood pressure of 77/52 requiring IV albumin and fluids. He is also tachycardic and WBC is elevated at 18.8 with neutrophilia. Lactic acid elevated at 3.1. Potassium 6.6 on admission and sodium is low at 126. Anion gap is elevated at 16 and he shows acute kidney injury with BUN of 71, creatinine 1.95, estimated GFR 36. Hypoglycemia noted with glucose initially 58 and 48 on repeat BMP. Patient BNP 1846. He is notably cachectic with bitemporal wasting and has a low albumin 1.9. Severe sepsis - UTI vs SBP Metabolic acidosis Hypotension Buttocks with pressure wounds, present on admission. Stage 2 pressure injury to sacrum that is resolving. Also stage 4 left ischium pressure injury. Has right upper thigh between hip and ischium skin loss not pressure related. Consult wound care nurse, following. Cleanse wounds with NS and apply foam dressings to change every 3 days or PRN for saturation or dislodgement - Vancomycin IV with pharmacy consult for assistance with therapeutic monitoring and dosing - Rocephin 2 g IV every 12 hours - Blood cultures 2 and urine culture pending; follow results - continuous cardiac telemetry - Albumin 50 g IV 1 dose for severe hypotension 03/25 - Start Albumin 25 g IV bid 03/26 - Received albumin 25 g IV once 03/27, - Increase albumin to 50 g bid IV and bolus of 250 cc NS 03/29 as patient hypotensive. Continue. BP is into a lower side - D5 normal saline at 100 cc per hour.Monitor BS. 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 - C. difficile toxin negative - Lactic acid sepsis protocol Ascites - S/P Ultrasound-guided abdominal paracentesis with removal if 16L -S/P LP and CT guided biopsy of omentum by IR 03/28/16. MRI reviewed shows nodularity of the peritoneum with possible omental thickening. CA 15-3 and CA -125 elevated but non specific CT chest no evidence of metastatic disease EGD recent last admission showed ulcer gastritis, esophagitis Colonoscopy recent last admission poor prep however no obvious mass Note patient left AMA last admission and was a plan for biopsy. Patient with anorexia, severe protein beverley malnutrition likely has underlying malignancy. - Add marinol for anorexia GI consulted will hold on any intervention, doesn't plan for colonoscopy Hem/onc consulted Dr Calix appreciate recommendations. S/P biopsy by IR CT abdomen of the omentum, results pending Hyponatremia - initial sodium 126, slowly trending up - D5NS at 100 cc/hr - recheck BMP Hyperkalemia - 6.6 on admission. Resolved - Given D50, insulin, and calcium gluconate in the ER. - Continue wit po supplement - Received D50- 50 cc IV push, and regular insulin 10 units IV Increased anion gap metabolic acidosis. Resolving - Anion gap closed - We'll continue to monitor with repeat BMP Acute kidney Insufficiency Hepato renal syndr, renal indices improved after removal of 16L (paracentesis) - IV fluid hydration with D5 normal saline at 100 cc/h - Avoid nephrotoxins - Repeat BMP and follow trends Thrombocytosis, most likely reactive. monitor . Stable and no signs of bleeding at this time. - Platelet count 70,000 on admission - Repeat CBC in a.m. Hypoglycemia - D50 IV one full vial - Recheck BMP for glucose level Severe protein calorie malnutrition - Consult dietitian to assist with recommendations for dietary intake Hematemesis - Serial H/H stable. Monitor h/h - Transfuse if needed - Consult GI DVT prophylaxis - SCDs - chemoprophylaxis contraindicated; hematemesis Discussed Condition With Patient, nurse Code status: DNR Patient says he want comfort care, however he wants all test done and lots of pain meds at this time. Palliative care consulted for goals of care, pain management as patient is asking for pain meds, however BP is very low. Palliative care also consulted as he says he wants comfort care. Transfer to med surg floor Chiquita Zhao MD Mar 30, 2016 07:55
[2016-03-30] MEDS: CALCIUM CARBONATE 500 MG CHEWABLE TAB CHEW SCH ×4 (09:00→20:42)
[2016-03-30] MEDS: ALBUMIN HUMAN 25% 25 GM/100 ML BAGP IV SCH ×2 (09:27→22:04)
[2016-03-30] MEDS: MAGNESIUM OXIDE 400 MG TAB PO SCH (09:28)
[2016-03-30] MEDS: LIDOCAINE HCL 5% PATCH TD SCH (09:28)
[2016-03-30] MEDS: MORPHINE SULFATE 4 MG/ML INJ IV PUSH PRN ×2 (09:29→10:53)
[2016-03-30] MEDS: DRONABINOL 2.5 MG CAP PO SCH ×2 (12:02→18:36)
[2016-03-30] MEDS: VANCOMYCIN 1,000 MG/NS 250 ML IV SCH ×2 (12:03)
--- NOTE | 2016-03-30 13:18 | PD.ONC.PN ---
Subjective Subjective Remarks Afebrile overnight. Pt was seen and examined with his father at the bedside. Pt states he feels like his abdomen is getting larger. He has mid back pain that is controlled with morphine. Mild SOB with activity. Objective Data Date Time Temp Pulse Resp B/P Pulse Ox O2 Delivery O2 Flow Rate FiO2 03/30/16 12:00 110 03/30/16 12:00 98.8 110 16 98/78 94 03/30/16 10:00 110 03/30/16 08:00 110 03/30/16 08:00 98.2 110 16 101/78 94 03/30/16 07:00 94 Room Air 03/30/16 06:00 105 03/30/16 04:00 101 03/30/16 04:00 98.2 101 15 90/65 94 03/30/16 02:00 108 03/30/16 00:00 101 03/30/16 00:00 98.0 101 14 90/59 91 03/29/16 22:00 106 03/29/16 21:15 100 21 03/29/16 20:00 97.8 112 18 85/66 93 03/29/16 20:00 112 03/29/16 19:05 94 Room Air 03/29/16 18:04 105 03/29/16 16:00 102 03/29/16 16:00 98.3 105 22 81/64 92 03/29/16 14:44 18 03/29/16 14:00 100 03/30/16 03/30/16 03/30/16 06:59 14:59 22:59 Intake Total 1236 ml Output Total 300 ml Balance 936 ml Result Diagram: 03/30/16 0445 03/30/16 0445 Laboratory Results Laboratory Tests Test 03/29/16 03/30/16 22:45 04:45 Vancomycin Level Trough 6.0 MCG/ML White Blood Count 5.2 TH/MM3 Red Blood Count 3.67 MIL/MM3 Hemoglobin 11.5 GM/DL Hematocrit 33.9 % Mean Corpuscular Volume 92.3 FL Mean Corpuscular Hemoglobin 31.3 PG Mean Corpuscular Hemoglobin 33.9 % Concent Red Cell Distribution Width 17.1 % Platelet Count 439 TH/MM3 Mean Platelet Volume 8.9 FL Neutrophils (%) (Auto) 83.2 % Lymphocytes (%) (Auto) 6.4 % Monocytes (%) (Auto) 9.3 % Eosinophils (%) (Auto) 0.8 % Basophils (%) (Auto) 0.3 % Neutrophils # (Auto) 4.3 TH/MM3 Lymphocytes # (Auto) 0.3 TH/MM3 Monocytes # (Auto) 0.5 TH/MM3 Eosinophils # (Auto) 0.0 TH/MM3 Basophils # (Auto) 0.0 TH/MM3 CBC Comment DIFF FINAL Differential Comment Sodium Level 140 MEQ/L Potassium Level 3.7 MEQ/L Chloride Level 110 MEQ/L Carbon Dioxide Level 20.2 MEQ/L Anion Gap 10 MEQ/L Blood Urea Nitrogen 23 MG/DL Creatinine 0.48 MG/DL Estimat Glomerular Filtration 182 ML/MIN Rate Random Glucose 102 MG/DL Calcium Level 7.1 MG/DL Protein Corrected Calcium 8.4 MG/DL Magnesium Level 1.5 MG/DL Total Protein 4.7 GM/DL Administered Medications Medications (Trade) Dose Ordered Sig/Maude Route PRN Reason Start Time Stop Time Status Last Admin Dose Admin Ceftriaxone Sodium/Sodium Chloride (Rocephin Inj/NS Inj) 100 ml @ 200 mls/hr Q12H IV 03/26/16 06:00 03/30/16 05:27 IV Flush (NS Flush) 2 ml BID FLUSH 03/25/16 21:00 03/30/16 09:00 Ondansetron HCl 4 mg 4 mg Q6H PRN IVP NAUSEA OR VOMITING 03/25/16 18:30 03/27/16 21:28 Dextrose/Sodium Chloride (D5W-NS 1000 ml Inj) 1,000 ml @ 100 mls/hr Q10H IV 03/25/16 23:00 03/30/16 12:03 Lidocaine/ Diphenhydr/Alum/ Mg/Simeth (Magic Mouthwash Pediatric/Adult Liq) 5 ml ACHS SWISH-SWAL 03/26/16 11:00 03/30/16 11:00 Morphine Sulfate (Morphine Inj) 2 mg Q4HR PRN IV PUSH breakthrough pain 03/26/16 17:45 03/30/16 10:53 Acetaminophen/ Hydrocodone Bitart ([place] 5-325 Mg) 1 tab Q6H PRN PO pain 03/26/16 17:45 03/30/16 03:03 Calcium Carbonate (Tums Chew) 500 mg Q12HR CHEW 03/27/16 11:00 03/30/16 09:00 Cyclobenzaprine HCl (Flexeril) 5 mg Q8HR PO 03/28/16 14:00 03/30/16 12:03 Calcium Carbonate (Tums Chew) 500 mg Q12HR CHEW 03/29/16 09:00 03/30/16 09:00 Magnesium Oxide (Mag-Ox) 400 mg DAILY PO 03/29/16 09:00 03/30/16 09:28 Lidocaine HCl (Lidoderm 5% Patch.12 Hr) 1 patch DAILY TD 03/29/16 09:00 03/30/16 09:28 Albumin Human (Albumin 25% Inj) 50 gm Q12H IV 03/29/16 10:00 03/30/16 09:27 Dronabinol 2.5 mg 2.5 mg BID@11,16 PO 03/29/16 16:00 03/30/16 12:02 Vancomycin HCl/ Sodium Chloride (Vancomycin Inj/ NS 250 ml Inj) 250 ml @ 250 mls/hr Q12H IV 03/30/16 12:00 03/30/16 12:03 Objective Remarks GENERAL: Cachetic, chronically ill appearing male in no acute distress. SKIN: Warm and dry. HEAD: Normocephalic. EYES: No scleral icterus. No injection or drainage. NECK: Supple, trachea midline. No JVD or lymphadenopathy. LYMPHATIC: No adenopathy. CARDIOVASCULAR: +S1/S2. RESPIRATORY: Breath sounds equal bilaterally. No accessory muscle use. GASTROINTESTINAL: Abdomen soft. Distended with + fluid wave. EXTREMITIES: 2+ edema to BLE. MUSCULOSKELETAL: Generalized weakness NEUROLOGICAL: No obvious focal deficit. Awake, alert, and oriented x3. Assessment/Plan Assessment 1. Malignant mesothelioma (biphasic type) from biopsy of peritoneal implant . Recurrent ascites since September of this year. He has had multiple large volume paracentesis. All the cytology has been negative for malignancy. CT of the abdomen and pelvis showed peritoneal implants. MRI showed abnormal nodularity of the peritoneum with possible omental thickening. CA15-3 and CA-125 was elevated but non specific. CT of the chest did not show clear evidence of metastatic disease. EGD showed ulcer, gastritis, esophagitis. Colonoscopy was a poor prep but no obvious mass noted. He left against medical advice the last time he was here. He now represented with increased shortness of breath and tense ascites. He had another paracentesis and removal of 16 liters of clear yellow fluid 03/26. 2. Cachexia. Continue nutritional support. 3. Acute renal failure likely due to third spacing. His creatinine has improved after the paracentesis. 4. Metabolic acidosis. He was started on antibiotic to cover for possible sepsis. 5. Back pain, he stated that it is superficial. Difficult to give him morphine due to hypotension. Try Lidoderm. Plan 1. Malignant mesothelioma (biphasic type)- The patient was told his diagnosis today with his father present at the bedside. It was explained to the patient that he had some options. The most aggressive being he go to [facility] for evaluation. They may attempt to debulk the tumor and possibly provide peritoneal chemotherapy. The second option would be palliative chemotherapy as an outpatient here locally. The third and last option would be to provide comfort measures and get a Hospice consult. The pt stated that he would like some time to think about it. 2. We will continue the Lidoderm patch. 3. Await pt's decision to determine future course of treatment. Attending Statement The exam, history, and the medical decision-making described in the above note were completed with the assistance of the mid-level provider. I reviewed and agree with the findings presented. I attest that I had a [id number] encounter with the patient on the same day, and personally performed and documented my assessment and findings in the medical record. Pain better controlled. Discussed path with pt and his father. Path showed biphasic mesothelioma which is an aggressive mesothelioma, prognosis is poor. He denies h/o asbestos exposure. Discussed prognosis and treatment options with them. He has very poor performance status and treatment option is limited. We talked about referral to [facility] to get an opinion about debulking surgery and intraperitoneal chemotherapy but I think he is too weak for that. WE also talked about trying palliative chemo with carbo/alimta vs hospice care. If he choose to have hopsice care, can consider placing peritoneal pleurx catheter, but there is a risk of tumor tracking up the catheter. He wants some time to think over his option. Vicky Webb Mar 30, 2016 13:17 Kane Calix MD Mar 30, 2016 14:09
[2016-03-30] MEDS: REMOVE OLD PATCH TD SCH (21:00)
[2016-03-31] VITALS (10 sets, daily range): BP systolic 67–105; BP diastolic 46–78; PULSE 111–119; RESP 16–20; TEMP 95.3–97.6; O2SAT 92–97
[2016-03-31] MEDS: VANCOMYCIN 1,000 MG/NS 250 ML IV SCH ×2 (00:20)
[2016-03-31] MEDS: DEXT 5%-NACL 0.9% 1000 ML INJ 1,000 ML IV SCH ×2 (00:21→18:33)
[2016-03-31] MEDS: cefTRIAXone INJ 2,000 MG in SODIUM CHLORIDE 0.9% INJ 100 ML IV SCH ×2 (05:20→18:33)
[2016-03-31] MEDS: CYCLOBENZAPRINE HCL 10 MG TAB PO SCH ×3 (05:20→23:29)
[2016-03-31] MEDS: DIPHENHY/LIDO/MAG/ALUM MOUTHWASH (Adult/Peds) 60 ML BTL SWISH-SWAL SCH ×5 (05:20→23:28)
[2016-03-31] MEDS: ACETAMINOPHEN/HYDROcodone 325 MG/5 MG TAB PO PRN (05:29)
--- NOTE | 2016-03-31 07:55 | PD.ONC.PN ---
Subjective Subjective Remarks Afebrile overnight. Pt having increased swelling in his abdomen. He c/o back pain and this becomes significantly worse when swallowing. He has mild SOB. Denies chest pain. He has not yet made a decision on whether or not to pursue treatment. He states he was hoping to have at least a full 24 hours. Objective Data Date Time Temp Pulse Resp B/P Pulse Ox O2 Delivery O2 Flow Rate FiO2 03/31/16 04:00 97.2 112 17 98/72 93 03/31/16 00:49 94 Room Air 03/31/16 00:00 96.3 111 16 89/58 94 03/30/16 20:29 94 21 03/30/16 20:00 96.7 122 18 100/70 96 03/30/16 16:00 98.7 117 20 89/76 03/30/16 12:00 110 03/30/16 12:00 98.8 110 16 98/78 94 03/30/16 10:00 110 03/30/16 08:00 110 03/30/16 08:00 98.2 110 16 101/78 94 03/30/16 07:58 96 21 03/31/16 03/31/16 03/31/16 07:00 15:00 23:00 Intake Total 240 ml Output Total 300 ml Balance -60 ml Result Diagram: 03/30/16 0445 03/30/16 0445 Administered Medications Medications (Trade) Dose Ordered Sig/Maude Route PRN Reason Start Time Stop Time Status Last Admin Dose Admin Ceftriaxone Sodium/Sodium Chloride (Rocephin Inj/NS Inj) 100 ml @ 200 mls/hr Q12H IV 03/26/16 06:00 03/31/16 05:20 IV Flush (NS Flush) 2 ml BID FLUSH 03/25/16 21:00 03/30/16 09:00 Ondansetron HCl 4 mg 4 mg Q6H PRN IVP NAUSEA OR VOMITING 03/25/16 18:30 03/27/16 21:28 Dextrose/Sodium Chloride (D5W-NS 1000 ml Inj) 1,000 ml @ 100 mls/hr Q10H IV 03/25/16 23:00 03/31/16 00:21 Lidocaine/ Diphenhydr/Alum/ Mg/Simeth (Magic Mouthwash Pediatric/Adult Liq) 5 ml ACHS SWISH-SWAL 03/26/16 11:00 03/30/16 18:35 Morphine Sulfate (Morphine Inj) 2 mg Q4HR PRN IV PUSH breakthrough pain 03/26/16 17:45 03/30/16 10:53 Acetaminophen/ Hydrocodone Bitart ([place] 5-325 Mg) 1 tab Q6H PRN PO pain 03/26/16 17:45 03/31/16 05:29 Calcium Carbonate (Tums Chew) 500 mg Q12HR CHEW 03/27/16 11:00 03/30/16 20:19 Cyclobenzaprine HCl (Flexeril) 5 mg Q8HR PO 03/28/16 14:00 03/31/16 05:20 Calcium Carbonate (Tums Chew) 500 mg Q12HR CHEW 03/29/16 09:00 03/30/16 09:00 Magnesium Oxide (Mag-Ox) 400 mg DAILY PO 03/29/16 09:00 03/30/16 09:28 Lidocaine HCl (Lidoderm 5% Patch.12 Hr) 1 patch DAILY TD 03/29/16 09:00 03/30/16 09:28 Miscellaneous Information 1 HS TD 03/29/16 21:00 03/30/16 21:00 Albumin Human (Albumin 25% Inj) 50 gm Q12H IV 03/29/16 10:00 03/30/16 22:04 Dronabinol 2.5 mg 2.5 mg BID@11,16 PO 03/29/16 16:00 03/30/16 18:36 Vancomycin HCl/ Sodium Chloride (Vancomycin Inj/ NS 250 ml Inj) 250 ml @ 250 mls/hr Q12H IV 03/30/16 12:00 03/31/16 00:20 Objective Remarks GENERAL: Cachetic middle aged male, lying in bed. SKIN: Pale appearing. HEAD: Normocephalic. EYES: No injection or drainage. NECK: Supple, trachea midline. CARDIOVASCULAR: +S1/S2. RESPIRATORY: Clear, diminished throughout. GASTROINTESTINAL: Distended. +Fluid wave. EXTREMITIES: Thin. No cyanosis, or edema. MUSCULOSKELETAL: Extreme muscle wasting. NEUROLOGICAL: No obvious focal deficit. Awake, alert, and oriented x3. Assessment/Plan Assessment 1. Malignant mesothelioma (biphasic type) from biopsy of peritoneal implant . Recurrent ascites since September of this year. He has had multiple large volume paracentesis. All the cytology has been negative for malignancy. CT of the abdomen and pelvis showed peritoneal implants. MRI showed abnormal nodularity of the peritoneum with possible omental thickening. CA15-3 and CA-125 was elevated but non specific. CT of the chest did not show clear evidence of metastatic disease. EGD showed ulcer, gastritis, esophagitis. Colonoscopy was a poor prep but no obvious mass noted. He left against medical advice the last time he was here. He now represented with increased shortness of breath and tense ascites. He had another paracentesis and removal of 16 liters of clear yellow fluid 03/26. 2. Cachexia. Continue nutritional support. 3. Acute renal failure likely due to third spacing. His creatinine has improved after the paracentesis. 4. Metabolic acidosis. He was started on antibiotic to cover for possible sepsis. 5. Back pain, he stated that it is superficial. Difficult to give him morphine due to hypotension. Try Lidoderm. Plan 1. The pt was told of his diagnosis of malignant mesothelioma yesterday. He wishes for more time to make a decision on pursuing treatment or hospice. 2. Will consider consulting IR for a repeat palliative paracentesis. 3. Continue pain medications, supportive care. 4. Await am labs. Attending Statement The exam, history, and the medical decision-making described in the above note were completed with the assistance of the mid-level provider. I reviewed and agree with the findings presented. I attest that I had a [id number] encounter with the patient on the same day, and personally performed and documented my assessment and findings in the medical record. Still has back pain when he swallow. He has not decided to have treatment yet. He stated that he worked with [employer] and not sure if he has asbestos exposure? Will increase the lortab to 10mg. He likely going to need paracentesis again tomorrow. I told him that the prognosis is poor, he has poor performance status and may not tolerate chemotherapy well. Will give him Vitamin B12 and folic acid in case we have to give him the [place]. Vicky Webb Mar 31, 2016 07:55 Kane Calix MD Mar 31, 2016 11:20
[2016-03-31 08:12] LABS: BICARBONATE 20.7 MEQ/L (21.0-32.0); MAGNESIUM 1.6 MG/DL (1.5-2.5); POTASSIUM 3.9 MEQ/L (3.5-5.1)
[2016-03-31 08:28] LABS: CALCIUM-PROTEIN CORRECTED 8.5 MG/DL (8.5-10.1)
--- NOTE | 2016-03-31 08:31 | HHI.PR ---
Subjective Remarks Complaints of distended abdomen and pain. He has pain in his back and says he can't eat because of it. No n/v/d/c. BP is low. Objective Vitals Vital Signs Date Time Temp Pulse Resp B/P Pulse Ox O2 Delivery O2 Flow Rate FiO2 03/31/16 04:00 97.2 112 17 98/72 93 03/31/16 00:49 94 Room Air 03/31/16 00:00 96.3 111 16 89/58 94 03/30/16 20:29 94 21 03/30/16 20:00 96.7 122 18 100/70 96 03/30/16 16:00 98.7 117 20 89/76 03/30/16 12:00 110 03/30/16 12:00 98.8 110 16 98/78 94 03/30/16 10:00 110 I/O 03/30/16 03/30/16 03/30/16 03/31/16 03/31/16 03/31/16 07:00 15:00 23:00 07:00 15:00 23:00 Intake Total 1236 ml 240 ml 120 ml 240 ml Output Total 300 ml 250 ml 300 ml Balance 936 ml -10 ml 120 ml -60 ml Intake Oral 150 ml 240 ml 120 ml 240 ml IV Total 1086 ml Output Urine Total 300 ml 250 ml 300 ml # Bowel Movements 0 Result Diagram: 03/30/16 0445 03/31/16 0654 Imaging Last Impressions Abdomen Biopsy CT 03/27/16 0000 Signed Impressions: Service Date/Time: February 12:02 - CONCLUSION: Uncomplicated CT guided biopsy of a focal soft tissue density on the right peritoneum.. Alonso Oneil MD Cyst Biopsy Asp-Paracentesis 03/26/16 0000 Signed Impressions: Service Date/Time: Saturday, March 26, 2016 13:08 - CONCLUSION: Uncomplicated ultrasound guided paracentesis. Alonso Oneil MD Chest X-Ray 03/25/16 1718 Signed Impressions: Service Date/Time: Friday, March 25, 2016 17:34 - CONCLUSION: Almost complete resolution of the previously seen the right lung base consolidation. Gabrielle Tipton MD Objective Remarks GENERAL: This is a patient who is severely cachectic with bitemporal wasting. SKIN: Bilateral buttocks pressure ulcers present on admission. Cool and dry. HEAD: Atraumatic. Normocephalic.Bitemporal waisting. EYES: No scleral icterus. No injection or drainage. ENT: Nose without bleeding, purulent drainage. NECK: Trachea midline. No JVD or lymphadenopathy. CARDIOVASCULAR: Regular rate and rhythm without murmurs, gallops, or rubs. Dependent edema noted right paraspinal thoracic and lumbar areas. 2-3+ edema ankles and feet. RESPIRATORY: No wheezes, rales. Right upper lobe with expiratory rhonchi; otherwise lungs clear to auscultation in other giles. GASTROINTESTINAL: Abdomen mildly tender with palpation, less distended. No guarding. MUSCULOSKELETAL: Extremities without clubbing, cyanosis. No calf tenderness. Back pain palpable paraspinal around the level of T11. NEUROLOGICAL: Awake and alert. Motor and sensory grossly within normal limits. Normal speech. Procedures -S/P paracentesis -CT guided biopsy of omentum by IR 03/28/16. A/P Problem List: (1) Severe sepsis ICD Code: A41.9 Status: Acute (2) Hyponatremia ICD Code: E87.1 Status: Acute (3) Hyperkalemia ICD Code: E87.5 Status: Resolved (4) Increased anion gap metabolic acidosis ICD Code: E87.2 Status: Acute (5) CHELY (acute kidney injury) ICD Code: N17.9 Status: Acute (6) Thrombocytosis ICD Code: D47.3 Status: Acute (7) Hypoglycemia ICD Code: E16.2 Status: Acute (8) Severe protein-calorie malnutrition ICD Code: E43 Status: Acute (9) Hematemesis ICD Code: K92.0 Status: Acute Assessment and Plan This is a 55-year-old male with past medical history of ascites for which he has gotten multiple ultrasound-guided paracentesis with drainage of large amount of ascites for about the past 6 months. He is here for worsening ascites and shortness of breath and had significant hypotension in the ER with a blood pressure of 77/52 requiring IV albumin and fluids. He is also tachycardic and WBC is elevated at 18.8 with neutrophilia. Lactic acid elevated at 3.1. Potassium 6.6 on admission and sodium is low at 126. Anion gap is elevated at 16 and he shows acute kidney injury with BUN of 71, creatinine 1.95, estimated GFR 36. Hypoglycemia noted with glucose initially 58 and 48 on repeat BMP. Patient BNP 1846. He is notably cachectic with bitemporal wasting and has a low albumin 1.9. Severe sepsis - UTI vs SBP Metabolic acidosis Hypotension Buttocks with pressure wounds, present on admission. Stage 2 pressure injury to sacrum that is resolving. Also stage 4 left ischium pressure injury. Has right upper thigh between hip and ischium skin loss not pressure related. Consult wound care nurse, following. Cleanse wounds with NS and apply foam dressings to change every 3 days or PRN for saturation or dislodgement - Vancomycin IV with pharmacy consult for assistance with therapeutic monitoring and dosing - Rocephin 2 g IV every 12 hours - Blood cultures 2 and urine culture pending; follow results - continuous cardiac telemetry - Albumin 50 g IV 1 dose for severe hypotension 03/25 - Start Albumin 25 g IV bid 03/26 - Received albumin 25 g IV once 03/27, - Increase albumin to 50 g bid IV and bolus of 250 cc NS 03/29 as patient hypotensive. Continue. BP is into a lower side - D5 normal saline at 100 cc per hour.Monitor BS. 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 - C. difficile toxin negative - Lactic acid sepsis protocol Ascites - S/P Ultrasound-guided abdominal paracentesis with removal if 16L -S/P LP and CT guided biopsy of omentum by IR 03/28/16, pathology shows mesenteric mesothelioma MRI reviewed shows nodularity of the peritoneum with possible omental thickening. CA 15-3 and CA -125 elevated but non specific CT chest no evidence of metastatic disease EGD recent last admission showed ulcer gastritis, esophagitis Colonoscopy recent last admission poor prep however no obvious mass Note patient left AMA last admission and was a plan for biopsy. Patient with anorexia, severe protein beverley malnutrition likely has underlying malignancy. - Add marinol for anorexia GI consulted will hold on any intervention, doesn't plan for colonoscopy Hem/onc consulted Dr Calix appreciate recommendations. S/P biopsy by IR CT abdomen of the omentum, with mesenteric mesothelioma Patient wants time to think if he will pursue medical treatment vs hospice. Reconsult IR for therapeutic paracenthesis. Hyponatremia - initial sodium 126, slowly trending up - D5NS at 100 cc/hr - recheck BMP Hyperkalemia - 6.6 on admission. Resolved - Given D50, insulin, and calcium gluconate in the ER. - Continue wit po supplement - Received D50- 50 cc IV push, and regular insulin 10 units IV Increased anion gap metabolic acidosis. Resolving - Anion gap closed - We'll continue to monitor with repeat BMP Acute kidney Insufficiency Hepato renal syndr, renal indices improved after removal of 16L (paracentesis) - IV fluid hydration with D5 normal saline at 100 cc/h - Avoid nephrotoxins - Repeat BMP and follow trends Thrombocytosis, most likely reactive. monitor . Stable and no signs of bleeding at this time. - Platelet count 70,000 on admission - Repeat CBC in a.m. Hypoglycemia - D50 IV one full vial - Recheck BMP for glucose level Severe protein calorie malnutrition - Consult dietitian to assist with recommendations for dietary intake Hematemesis - Serial H/H stable. Monitor h/h - Transfuse if needed - Consult GI DVT prophylaxis - SCDs - chemoprophylaxis contraindicated; hematemesis Discussed Condition With Patient, nurse Code status: DNR Patient says he want comfort care, however he wants all test done and lots of pain meds at this time. Palliative care consulted for goals of care, pain management as patient is asking for pain meds, however BP is very low. Palliative care also consulted as he says he wants comfort care. Transfer to med surg floor Chiquita Zhao MD Mar 31, 2016 08:31
[2016-03-31 08:34] LABS: AUTOMATED NEUTROPHIL # 4.7 TH/MM3 (1.8-7.7); BASOPHIL % 0.8 % (0.0-2.0); EOSINOPHIL # 0.1 TH/MM3 (0-0.4); EOSINOPHIL % 0.9 % (0.0-4.0); HEMATOCRIT 36.2 % (39.0-51.0); HEMO FLAGS DIFF FINAL; LYMPH % 8.6 % (9.0-44.0); LYMPHOCYTE # 0.5 TH/MM3 (1.0-4.8); MEAN CELL VOLUME 95.6 FL (80.0-100.0); MEAN CORPUSCULAR HEMOGLOBIN 30.8 PG (27.0-34.0); MEAN CORPUSCULAR HGB CONC 32.2 % (32.0-36.0); MONO % 9.7 % (0.0-8.0); PLATELET COUNT 500 TH/MM3 (150-450); RED BLOOD COUNT 3.78 MIL/MM3 (4.50-5.90); RED CELL DISTRIBUTION WIDTH 18.1 % (11.6-17.2); WHITE BLOOD COUNT 5.8 TH/MM3 (4.0-11.0)
[2016-03-31] MEDS: SODIUM CHLORIDE 0.9% FLUSH 5 ML FLUSH FLUSH SCH ×2 (09:00→21:00)
[2016-03-31] MEDS: CALCIUM CARBONATE 500 MG CHEWABLE TAB CHEW SCH ×4 (09:00→23:28)
[2016-03-31] MEDS: MAGNESIUM OXIDE 400 MG TAB PO SCH (09:06)
[2016-03-31] MEDS: ALBUMIN HUMAN 25% 25 GM/100 ML BAGP IV SCH ×3 (09:07→23:31)
[2016-03-31] MEDS: LIDOCAINE HCL 5% PATCH TD SCH (09:11)
[2016-03-31] MEDS ORDERED: CYANOCOBALAMIN 1000 MCG/ML VIAL IM ONE (11:30)
[2016-03-31] MEDS ORDERED: PHARMACY ORDERED LAB XX ONE (11:45)
[2016-03-31] MEDS: ACETAMINOPHEN/HYDROcodone 325 MG/10 MG TAB PO PRN (11:53)
[2016-03-31] MEDS: DRONABINOL 2.5 MG CAP PO SCH ×2 (11:53→17:10)
[2016-03-31] MEDS: FOLIC ACID 1 MG TAB PO SCH (11:53)
[2016-03-31] MEDS: VANCOMYCIN INJ 1,250 MG in SODIUM CHLOR 0.9% 250 ML INJ 250 ML IV SCH (14:53)
[2016-03-31] MEDS: REMOVE OLD PATCH TD SCH (21:00)
[2016-03-31] MEDS ORDERED: ALBUMIN HUMAN 25% 75 GM IV ONE (22:15)
--- NOTE | 2016-03-31 22:51 | RADRPT ---
EXAM DATE/TIME: 03/31/2016 19:53 [facility] COMPARISON: US GUIDED ABD PARACENTESIS, March 26, 2016, 13:08. INDICATIONS : Ascites. MEDICAL HISTORY : Renal failure, acute. Malignant mesothelioma. Metabolic acidosis. SURGICAL HISTORY : Multiple thoracentesis. Multiple paracentesis. ENCOUNTER: Sequela ACUITY: 4-6 days PAIN SCORE: 5/10 LOCATION: Right lower quadrant [place]UID: [place] [address] cc of clear, yellow fluid was removed. Fluid was discarded. Paracentesis was therapeutic only. Post procedure scanning reveals no hematoma or other complication. TECHNIQUE: 1. Ultrasound guidance for abdominal paracentesis. 2. Paracentesis. The risks, benefits, and alternatives to ultrasound guided paracentesis were explained to the patient in detail including the risk of bleeding and infection. Written and verbal informed consent was obt ained. With the patient on the ultrasound table, ultrasound imaging was used to select the most appropriate approach for paracentesis. Overlying skin was prepped and draped in the usual sterile fashion and wi th a local anesthetic, a dermatotomy was made with an 11 blade scalpel. A 6 [place] [id number] ca theter was introduced into the peritoneal cavity and fluid was collected. The patient tolerated the procedure well and left the ultrasound suite in stable condition. CONCLUSION: Uncomplicated ultrasound guided paracentesis. Andres Copeland Jr., MD on March 31, 2016 at 22:49 Board Certified Radiologist. This report was verified electronically.
[2016-04-01] VITALS (7 sets, daily range): BP systolic 83–100; BP diastolic 56–76; PULSE 101–123; RESP 17–22; TEMP 96.9–98.2; O2SAT 95–98
[2016-04-01] MEDS: VANCOMYCIN INJ 1,250 MG in SODIUM CHLOR 0.9% 250 ML INJ 250 ML IV SCH ×2 (02:45→15:23)
[2016-04-01] MEDS: DEXT 5%-NACL 0.9% 1000 ML INJ 1,000 ML IV SCH ×2 (05:00→20:41)
[2016-04-01] MEDS: DIPHENHY/LIDO/MAG/ALUM MOUTHWASH (Adult/Peds) 60 ML BTL SWISH-SWAL SCH ×4 (06:00→21:28)
[2016-04-01] MEDS: cefTRIAXone INJ 2,000 MG in SODIUM CHLORIDE 0.9% INJ 100 ML IV SCH ×2 (06:00→17:35)
[2016-04-01] MEDS: CYCLOBENZAPRINE HCL 10 MG TAB PO SCH ×3 (06:00→21:26)
[2016-04-01] MEDS: ACETAMINOPHEN/HYDROcodone 325 MG/10 MG TAB PO PRN ×2 (06:01→17:35)
[2016-04-01] MEDS: ONDANSETRON HCL 4 MG/2 ML VIAL IVP PRN ×3 (06:01→21:10)
[2016-04-01 07:58] LABS: AUTOMATED NEUTROPHIL # 3.6 TH/MM3 (1.8-7.7); BASOPHIL % 0.6 % (0.0-2.0); EOSINOPHIL # 0.1 TH/MM3 (0-0.4); EOSINOPHIL % 1.5 % (0.0-4.0); HEMATOCRIT 31.5 % (39.0-51.0); HEMO FLAGS DIFF FINAL; LYMPH % 7.8 % (9.0-44.0); LYMPHOCYTE # 0.4 TH/MM3 (1.0-4.8); MEAN CELL VOLUME 91.4 FL (80.0-100.0); MEAN CORPUSCULAR HEMOGLOBIN 30.6 PG (27.0-34.0); MEAN CORPUSCULAR HGB CONC 33.4 % (32.0-36.0); MONO % 10.4 % (0.0-8.0); NEUT % 79.7 % (16.0-70.0); PLATELET COUNT 449 TH/MM3 (150-450); RED BLOOD COUNT 3.44 MIL/MM3 (4.50-5.90); RED CELL DISTRIBUTION WIDTH 16.9 % (11.6-17.2); WHITE BLOOD COUNT 4.6 TH/MM3 (4.0-11.0)
[2016-04-01 08:29] LABS: BICARBONATE 24.3 MEQ/L (21.0-32.0); MAGNESIUM 1.5 MG/DL (1.5-2.5); POTASSIUM 3.7 MEQ/L (3.5-5.1)
[2016-04-01] MEDS: CALCIUM CARBONATE 500 MG CHEWABLE TAB CHEW SCH ×3 (08:43→21:26)
[2016-04-01] MEDS: SODIUM CHLORIDE 0.9% FLUSH 5 ML FLUSH FLUSH SCH ×2 (08:43→21:00)
[2016-04-01 08:45] LABS: CALCIUM-PROTEIN CORRECTED 8.2 MG/DL (8.5-10.1)
[2016-04-01] MEDS: LIDOCAINE HCL 5% PATCH TD SCH (08:47)
[2016-04-01] MEDS: FOLIC ACID 1 MG TAB PO SCH (08:47)
[2016-04-01] MEDS: MAGNESIUM OXIDE 400 MG TAB PO SCH (08:47)
--- NOTE | 2016-04-01 11:59 | PD.ONC.PN ---
Subjective Subjective Remarks S/p paracentesis. Feeling better today. Pain is controlled and able to drink and eat without pain. Objective Data Date Time Temp Pulse Resp B/P Pulse Ox O2 Delivery O2 Flow Rate FiO2 04/01/16 08:29 97.6 102 20 94/56 95 04/01/16 08:27 18 04/01/16 07:56 97 Nasal Cannula 1.00 04/01/16 04:00 96.9 108 17 100/69 96 04/01/16 01:30 101 89/59 03/31/16 23:50 89/64 03/31/16 23:06 71/51 97 03/31/16 23:02 96.3 119 20 67/46 97 03/31/16 20:00 Nasal Cannula 1.00 21 03/31/16 20:00 96.4 119 19 94/78 96 03/31/16 16:00 97.6 116 16 105/73 94 03/31/16 12:48 92 Nasal Cannula 1.00 03/31/16 12:00 97.2 115 16 95/75 95 04/01/16 04/01/16 04/01/16 07:00 15:00 23:00 Intake Total 120 ml Output Total 300 ml Balance -180 ml Result Diagram: 04/01/16 0645 04/01/16 0645 Laboratory Results Laboratory Tests Test 03/31/16 04/01/16 13:05 06:45 Vancomycin Level Trough 12.3 MCG/ML White Blood Count 4.6 TH/MM3 Red Blood Count 3.44 MIL/MM3 Hemoglobin 10.5 GM/DL Hematocrit 31.5 % Mean Corpuscular Volume 91.4 FL Mean Corpuscular Hemoglobin 30.6 PG Mean Corpuscular Hemoglobin 33.4 % Concent Red Cell Distribution Width 16.9 % Platelet Count 449 TH/MM3 Mean Platelet Volume 8.0 FL Neutrophils (%) (Auto) 79.7 % Lymphocytes (%) (Auto) 7.8 % Monocytes (%) (Auto) 10.4 % Eosinophils (%) (Auto) 1.5 % Basophils (%) (Auto) 0.6 % Neutrophils # (Auto) 3.6 TH/MM3 Lymphocytes # (Auto) 0.4 TH/MM3 Monocytes # (Auto) 0.5 TH/MM3 Eosinophils # (Auto) 0.1 TH/MM3 Basophils # (Auto) 0.0 TH/MM3 CBC Comment DIFF FINAL Differential Comment Sodium Level 137 MEQ/L Potassium Level 3.7 MEQ/L Chloride Level 105 MEQ/L Carbon Dioxide Level 24.3 MEQ/L Anion Gap 8 MEQ/L Blood Urea Nitrogen 18 MG/DL Creatinine 0.36 MG/DL Estimat Glomerular Filtration 253 ML/MIN Rate Random Glucose 81 MG/DL Calcium Level 7.0 MG/DL Protein Corrected Calcium 8.2 MG/DL Magnesium Level 1.5 MG/DL Total Protein 4.8 GM/DL Administered Medications Medications (Trade) Dose Ordered Sig/Maude Route PRN Reason Start Time Stop Time Status Last Admin Dose Admin Ceftriaxone Sodium/Sodium Chloride (Rocephin Inj/NS Inj) 100 ml @ 200 mls/hr Q12H IV 03/26/16 06:00 04/01/16 06:00 IV Flush (NS Flush) 2 ml BID FLUSH 03/25/16 21:00 03/30/16 09:00 Ondansetron HCl 4 mg 4 mg Q6H PRN IVP NAUSEA OR VOMITING 03/25/16 18:30 04/01/16 06:01 Dextrose/Sodium Chloride (D5W-NS 1000 ml Inj) 1,000 ml @ 100 mls/hr Q10H IV 03/25/16 23:00 03/31/16 18:33 Lidocaine/ Diphenhydr/Alum/ Mg/Simeth (Magic Mouthwash Pediatric/Adult Liq) 5 ml ACHS SWISH-SWAL 03/26/16 11:00 04/01/16 06:00 Morphine Sulfate (Morphine Inj) 2 mg Q4HR PRN IV PUSH breakthrough pain 03/26/16 17:45 03/30/16 10:53 Calcium Carbonate (Tums Chew) 500 mg Q12HR CHEW 03/27/16 11:00 03/31/16 23:28 Cyclobenzaprine HCl (Flexeril) 5 mg Q8HR PO 03/28/16 14:00 04/01/16 06:00 Calcium Carbonate (Tums Chew) 500 mg Q12HR CHEW 03/29/16 09:00 04/01/16 08:47 Magnesium Oxide (Mag-Ox) 400 mg DAILY PO 03/29/16 09:00 04/01/16 08:47 Lidocaine HCl (Lidoderm 5% Patch.12 Hr) 1 patch DAILY TD 03/29/16 09:00 04/01/16 08:47 Miscellaneous Information 1 HS TD 03/29/16 21:00 03/31/16 21:00 Albumin Human (Albumin 25% Inj) 50 gm Q12H IV 03/29/16 10:00 03/31/16 23:31 Dronabinol (Marinol) 2.5 mg BID@11,16 PO 03/29/16 16:00 03/31/16 17:10 Acetaminophen/ Hydrocodone Bitart ([place] 10-325 Mg) 1 tab Q6H PRN PO pain 1-10 03/31/16 11:15 04/01/16 06:01 Folic Acid 1 mg 1 mg DAILY PO 03/31/16 11:30 04/01/16 08:47 Vancomycin HCl/ Sodium Chloride (Vancomycin Inj/ NS 250 ml Inj) 262.5 ml @ 250 mls/hr Q12H IV 03/31/16 15:00 04/01/16 02:45 Objective Remarks GENERAL: Cachectic, weak. SKIN: Warm and dry. HEAD: Normocephalic. EYES: No scleral icterus. No injection or drainage. NECK: Supple, trachea midline. No JVD or lymphadenopathy. LYMPHATIC: No adenopathy. CARDIOVASCULAR: Regular rate and rhythm without murmurs. RESPIRATORY: Breath sounds equal bilaterally. No accessory muscle use. GASTROINTESTINAL: Abdomen softer, still distended, +BS EXTREMITIES: No cyanosis, or edema. MUSCULOSKELETAL: Adequate muscle tone. NEUROLOGICAL: No obvious focal deficit. Awake, alert, and oriented x3. PSYCHIATRIC: Appropriate mood and affect; insight and judgment normal. Assessment/Plan Assessment 1. Malignant mesothelioma (biphasic type) from biopsy of peritoneal implant . Recurrent ascites since September of this year. He has had multiple large volume paracentesis. All the cytology has been negative for malignancy. CT of the abdomen and pelvis showed peritoneal implants. MRI showed abnormal nodularity of the peritoneum with possible omental thickening. CA15-3 and CA-125 was elevated but non specific. CT of the chest did not show clear evidence of metastatic disease. EGD showed ulcer, gastritis, esophagitis. Colonoscopy was a poor prep but no obvious mass noted. He left against medical advice the last time he was here. He now represented with increased shortness of breath and tense ascites. He had another paracentesis and removal of 16 liters of clear yellow fluid 03/26. 03/31/16 paracentesis with removal >18L. 2. Cachexia. Continue nutritional support. 3. Acute renal failure likely due to third spacing. His creatinine has improved after the paracentesis. 4. Metabolic acidosis. He was started on antibiotic to cover for possible sepsis. 5. Back pain, he stated that it is superficial. Difficult to give him morphine due to hypotension. Try Lidoderm. Lortab dose was increased. Plan 1. The pt was told of his diagnosis of malignant mesothelioma yesterday. Another extensive discussion with patient and his father at the bedside. He went over the treatment options again. patient stated taht he is always against chemotherapy andh he does not think he would consider chemotherapy. He would like to pursue alternative medicine. At this time, he is leaning towards hospice for comfort care but he wants more time to think about it. 2. Can consider pelurx cath placement if he wants hospice care. 3. Continue pain medications, supportive care. Kane Calix MD Apr 01, 2016 11:58
[2016-04-01] MEDS: DRONABINOL 2.5 MG CAP PO SCH ×2 (12:06→17:34)
--- NOTE | 2016-04-01 12:24 | HHI.HCPN ---
Reason for visit a. To assist with evaluation and management of symptoms including: Dyspnea, pain, ascites b. To assist medical decision maker(s) with: better understanding of current medical conditions; weighing benefits/burdens of medical treatment options; making medical treatment decisions. (Raisa Garrett) Subjective/Interval History Patient seen in follow-up on comfort , goals. Pathology back, + mesothelioma. Oncology notes discussion with patient regarding limited treatment options including possible transfer to [facility] for further evaluation and treatment, local palliative chemotherapy, as well as comfort options. Patient has continued to endorse pain to his back when swallowing. Can use to have blood pressures 80s to 90s systolic with occasional in the 70s--nursing holding/administering pain medicine accordingly, limiting doses if hypotension present. Has PRN morphine as well as Raleigh available-- has used [place] x1 today, yesterday, last dose prn morphine 03/30. Has reported pain 7-8-9 to back. Eating 25% of most meals. CBC today unchanged, chemistry unchanged. VSS on 1 L nc. Patient seen today in room with his father at bedside. Dr. Calix also present at my arrival and reviewing limited treatment options with patient at time of my arrival, I joined him for continued discussion. Patient is expressing that he is leaning towards hospice though is still taking time to process and discuss with his father. He tells us that he understands chemotherapy may in fact make him sicker and he really wants to symptom relief for whatever time he may have left. He wants to continue to receive abdominal paracentesis as needed for comfort. He wants his pain well controlled and does not like it when the nurses with hold pain medications due to hypotension. He does endorse that pain is feeling better today than it has in a long time, and that he has actually been able to eat and swallow some without terrible pain. She tells us that even if he went with hospice he still wants to pursue alternative therapies. Review hospice role, philosophy, services provided with patient and his father, and that he could likely still pursue whatever alternative therapies desired while receiving hospice care. He tells us he still wants to take today to talk about it and think about things he is open to meeting again with hospice today. Father has specific questions regarding life expectancy--review with him limitations in terms of predicting time of but based on patient current clinical condition, performance status would exit me he has somewhere within days to weeks. All questions answered, palliative contact information provided. Following exam, call to hospice to inform of desire for follow-up later today-- hospice admissions informs that hospice admission RN Tonya has follow-up appointment with patient/family at 1 PM. . (Raisa Garrett) Advance Directives Living Will: Never completed Health Care Surrogate: Never completed (Raisa Garrett) Objective Vital Signs Date Time Temp Pulse Resp B/P Pulse Ox O2 Delivery O2 Flow Rate FiO2 04/01/16 08:29 97.6 102 20 94/56 95 04/01/16 08:27 18 04/01/16 07:56 97 Nasal Cannula 1.00 04/01/16 04:00 96.9 108 17 100/69 96 04/01/16 01:30 101 89/59 03/31/16 23:50 89/64 03/31/16 23:06 71/51 97 03/31/16 23:02 96.3 119 20 67/46 97 03/31/16 20:00 Nasal Cannula 1.00 21 03/31/16 20:00 96.4 119 19 94/78 96 03/31/16 16:00 97.6 116 16 105/73 94 03/31/16 12:48 92 Nasal Cannula 1.00 Intake & Output 04/01/16 04/01/16 07:00 19:00 Intake Total 240 ml Output Total 500 ml Balance -260 ml Intake Oral 240 ml Output Urine Total 500 ml # Bowel Movements 0 Physical Exam CONSTITUTIONAL/GENERAL: Very cachectic, frail-appearing patient. Temporal wasting evident. Pleasant, cooperative TUBES/LINES/DRAINS: Peripheral IV upper extremity. CARDIOVASCULAR: Regular rate and rhythm. No peripheral edema observed. RESPIRATORY/CHEST: Symmetric, unlabored respirations 1L NC. MUSCULOSKELETAL: Extremities without clubbing, cyanosis, or edema. Extremities extremely thin with significant muscle atrophy 4. NEUROLOGICAL: Awake and alert-oriented x3 and for the most part seems to have reasonable insight. Moves all 4 extremities. PSYCHIATRIC: No obvious anxiety/depression. no apparent hallucinations or other psychotic thought process. . (Raisa Garrett) Diagnostic Tests Laboratory Laboratory Tests Test 03/29/16 03/30/16 03/31/16 03/31/16 22:45 04:45 06:54 13:05 Vancomycin Level Trough 6.0 MCG/ML 12.3 MCG/ML (5.0-10.0) (5.0-10.0) White Blood Count 5.2 TH/MM3 5.8 TH/MM3 (4.0-11.0) (4.0-11.0) Red Blood Count 3.67 MIL/MM3 3.78 MIL/MM3 (4.50-5.90) (4.50-5.90) Hemoglobin 11.5 GM/DL 11.6 GM/DL (13.0-17.0) (13.0-17.0) Hematocrit 33.9 % 36.2 % (39.0-51.0) (39.0-51.0) Mean Corpuscular Volume 92.3 FL 95.6 FL (80.0-100.0) (80.0-100.0) Mean Corpuscular Hemoglobin 31.3 PG 30.8 PG (27.0-34.0) (27.0-34.0) Mean Corpuscular Hemoglobin 33.9 % 32.2 % Concent (32.0-36.0) (32.0-36.0) Red Cell Distribution Width 17.1 % 18.1 % (11.6-17.2) (11.6-17.2) Platelet Count 439 TH/MM3 500 TH/MM3 (150-450) (150-450) Mean Platelet Volume 8.9 FL 8.1 FL (7.0-11.0) (7.0-11.0) Neutrophils (%) (Auto) 83.2 % 80.0 % (16.0-70.0) (16.0-70.0) Lymphocytes (%) (Auto) 6.4 % 8.6 % (9.0-44.0) (9.0-44.0) Monocytes (%) (Auto) 9.3 % (0.0-8.0) 9.7 % (0.0-8.0) Eosinophils (%) (Auto) 0.8 % (0.0-4.0) 0.9 % (0.0-4.0) Basophils (%) (Auto) 0.3 % (0.0-2.0) 0.8 % (0.0-2.0) Neutrophils # (Auto) 4.3 TH/MM3 4.7 TH/MM3 (1.8-7.7) (1.8-7.7) Lymphocytes # (Auto) 0.3 TH/MM3 0.5 TH/MM3 (1.0-4.8) (1.0-4.8) Monocytes # (Auto) 0.5 TH/MM3 0.6 TH/MM3 (0-0.9) (0-0.9) Eosinophils # (Auto) 0.0 TH/MM3 0.1 TH/MM3 (0-0.4) (0-0.4) Basophils # (Auto) 0.0 TH/MM3 0.0 TH/MM3 (0-0.2) (0-0.2) CBC Comment DIFF FINAL DIFF FINAL Differential Comment Sodium Level 140 MEQ/L 140 MEQ/L (136-145) (136-145) Potassium Level 3.7 MEQ/L 3.9 MEQ/L (3.5-5.1) (3.5-5.1) Chloride Level 110 MEQ/L 108 MEQ/L (98-107) (98-107) Carbon Dioxide Level 20.2 MEQ/L 20.7 MEQ/L (21.0-32.0) (21.0-32.0) Anion Gap 10 MEQ/L (5-15) 11 MEQ/L (5-15) Blood Urea Nitrogen 23 MG/DL (7-18) 22 MG/DL (7-18) Creatinine 0.48 MG/DL 0.51 MG/DL (0.60-1.30) (0.60-1.30) Estimat Glomerular Filtration 182 ML/MIN 169 ML/MIN Rate (>89) (>89) Random Glucose 102 MG/DL 99 MG/DL (74-106) (74-106) Calcium Level 7.1 MG/DL 7.3 MG/DL (8.5-10.1) (8.5-10.1) Protein Corrected Calcium 8.4 MG/DL 8.5 MG/DL (8.5-10.1) (8.5-10.1) Magnesium Level 1.5 MG/DL 1.6 MG/DL (1.5-2.5) (1.5-2.5) Total Protein 4.7 GM/DL 5.0 GM/DL (6.4-8.2) (6.4-8.2) Hematology Comments Test 04/01/16 06:45 White Blood Count 4.6 TH/MM3 (4.0-11.0) Red Blood Count 3.44 MIL/MM3 (4.50-5.90) Hemoglobin 10.5 GM/DL (13.0-17.0) Hematocrit 31.5 % (39.0-51.0) Mean Corpuscular Volume 91.4 FL (80.0-100.0) Mean Corpuscular Hemoglobin 30.6 PG (27.0-34.0) Mean Corpuscular Hemoglobin 33.4 % Concent (32.0-36.0) Red Cell Distribution Width 16.9 % (11.6-17.2) Platelet Count 449 TH/MM3 (150-450) Mean Platelet Volume 8.0 FL (7.0-11.0) Neutrophils (%) (Auto) 79.7 % (16.0-70.0) Lymphocytes (%) (Auto) 7.8 % (9.0-44.0) Monocytes (%) (Auto) 10.4 % (0.0-8.0) Eosinophils (%) (Auto) 1.5 % (0.0-4.0) Basophils (%) (Auto) 0.6 % (0.0-2.0) Neutrophils # (Auto) 3.6 TH/MM3 (1.8-7.7) Lymphocytes # (Auto) 0.4 TH/MM3 (1.0-4.8) Monocytes # (Auto) 0.5 TH/MM3 (0-0.9) Eosinophils # (Auto) 0.1 TH/MM3 (0-0.4) Basophils # (Auto) 0.0 TH/MM3 (0-0.2) CBC Comment DIFF FINAL Differential Comment Sodium Level 137 MEQ/L (136-145) Potassium Level 3.7 MEQ/L (3.5-5.1) Chloride Level 105 MEQ/L (98-107) Carbon Dioxide Level 24.3 MEQ/L (21.0-32.0) Anion Gap 8 MEQ/L (5-15) Blood Urea Nitrogen 18 MG/DL (7-18) Creatinine 0.36 MG/DL (0.60-1.30) Estimat Glomerular Filtration 253 ML/MIN Rate (>89) Random Glucose 81 MG/DL (74-106) Calcium Level 7.0 MG/DL (8.5-10.1) Protein Corrected Calcium 8.2 MG/DL (8.5-10.1) Magnesium Level 1.5 MG/DL (1.5-2.5) Total Protein 4.8 GM/DL (6.4-8.2) (Raisa Garrett) Result Diagram: 04/01/16 0645 04/01/16 0645 Imaging Last Impressions Cyst Biopsy Asp-Paracentesis US 03/31/16 0000 Signed Impressions: Service Date/Time: Thursday, March 31, 2016 19:53 - CONCLUSION: Uncomplicated ultrasound guided paracentesis. Andres Copeland Jr., MD Abdomen Biopsy CT 03/27/16 0000 Signed Impressions: Service Date/Time: February 12:02 - CONCLUSION: Uncomplicated CT guided biopsy of a focal soft tissue density on the right peritoneum.. Alonso Oneil MD Chest X-Ray 03/25/16 1718 Signed Impressions: Service Date/Time: Friday, March 25, 2016 17:34 - CONCLUSION: Almost complete resolution of the previously seen the right lung base consolidation. Gabrielle Tipton MD Procedures 03/27CT-guided biopsy. 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 Supported by his father, as well as a close friend named Brodie. 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 Not , no children. Spiritual: Mor[employer] per EMR Legal:Patient appears to be fairly oriented and appropriate though difficult to fully assess insight. Affect is withdrawn and very limited engagement--appears to have some behavioral/personality component to his behavior/interaction. Appears he may be able to make his own decisions. Not , no children. Appears per [place] statutes his father would be legal decision maker if he were to become incapacitated. I attempt to explore health care surrogate designation with him he indicates he would want his father called in the case of an emergency Ethical issues impacting care: Important Contacts Bhavik Hernandez (father) [phone] Brodie Díaz (friend) [phone] . Prognosis Patient is cachectic, with significant unintentional weight loss. Suspected underlying malignancy --CT-guided abdominal biopsy indicative of biphasic mesothelioma. Poor performance status, frail underlying condition, patient could consider seeking treatment at [facility] versus palliative chemotherapy locally , or comfort measures would be appropriate. . Code Status: No Code Plan * Legal decision maker:Patient appears to be fairly oriented and appropriate though difficult to fully assess insight. Affect is withdrawn and very limited engagement--appears to have some behavioral/personality component to his behavior/interaction. Appears he may be able to make his own decisions. Not , no children. Appears per [place] statutes his father would be legal decision maker if he were to become incapacitated. I attempt to explore health care surrogate designation with him he indicates he would want his father called in the case of an emergency * Goals: Goals appear semi-aggressive though he is strongly leaning towards hospice--he wants to continue to discuss today with his family, and follow-up meeting with hospice. Hospice admissions informs they have a meeting set up with him at 1 PM. * CODE STATUS: DNR * SYMPTOMS: --Ascites-? Etiology, likely malignancy. Pathology + mesothelioma. Ongoing ascites for the past several months requiring frequent paracentesis for large amount of volume most recently 03/27 for 16 L. Consider IR for Aspira catheter for frequent drainage. Apparently this has been discussed with patient. --Dyspnea -patient denies any dyspnea. indicates has been fine since the paracentesis and that is not his primary concern. Now comfortable on 1 L nasal cannula. We'll continue to monitor. --Paindenies abdominal pain currently says he has had some but has improved since paracentesis. His biggest primary concern is pain described as "at the back of his throat going through to his spine "he endorses that it becomes so bad when he is trying to eat it hurts through the back of his throat to his back. He endorses that it is better today than it has been for the past several days, has not required significant amounts of PRNS. Has prn medications Raleigh, morphine available, which she indicates are currently effective. Could could certainly consider up titration of opiates for pain relief if goals were comfort oriented; however Given current goals and systolic blood pressures in the range of 70s to 90s would not further increase opiates. --Malnutrition-albumin 1.9. Patient extremely frail, cachectic. Unintentional weight loss of around 40-50 pounds. Poor oral intake secondary to pain and nausea.denies nausea, today indicates is able to swallow much better. Likely 2/2 malignancy. * Palliative care will continue to follow during hospital course as condition evolves, to assist patient/decision-maker with understanding of medical conditions, weighing benefits/burdens of treatment options, for clarification of goals of treatment. Additionally will assist with any symptoms of palliative concern (Raisa Garrett) Time Spent Total Floor Time (mins): 25 Face to Face Time (mins): 20 >50% Counseling/Coord of Care: Yes (discuss with oncology Dr. Calix, hospice admissions) (Raisa Garrett) Attestation To help prompt me to consider important information that might be impacting today's encounter and assessment, information from prior notes written by myself or my colleagues may have been "brought forward" into today's note. My signature on this note, however, is an attestation that I personally performed the exam, history, and/or decision-making noted today, and, unless otherwise indicated, the interactions with patient, family, and staff as well as the review of records all occurred today. I also attest that the listed assessment and stated plan reflect my best clinical judgment today based on the combination of historical information, prior notes, and today's exam/ interactions. When time spent is documented, it refers only to time spent today by the signer, or if indicated, combined time spent today by collaborating physician/nurse practitioner. (Raisa Garrett) Collaborating MD Comments Chart reviewed. Case discussed with palliative care DINING SERVICE SUPERVISOR. Above note reviewed and I concur. . (Chidi Rich MD) Raisa Garrett Apr 01, 2016 12:24 Chidi Rich MD Apr 11, 2016 17:37
[2016-04-01] MEDS ORDERED: PHARMACY ORDERED LAB XX ONE (14:45)
--- NOTE | 2016-04-01 14:54 | HHI.PR ---
Subjective Remarks Patient is in nad. Says he feels much better after paracenthesis. No fever or chills. No n/v/d/c. Says he is eating better today. Says he still has pain in his back. Considering hospice. Objective Vitals Vital Signs Date Time Temp Pulse Resp B/P Pulse Ox O2 Delivery O2 Flow Rate FiO2 04/01/16 08:48 Nasal Cannula 1.00 04/01/16 08:29 97.6 102 20 94/56 95 04/01/16 08:27 18 04/01/16 07:56 97 Nasal Cannula 1.00 04/01/16 04:00 96.9 108 17 100/69 96 04/01/16 01:30 101 89/59 03/31/16 23:50 89/64 03/31/16 23:06 71/51 97 03/31/16 23:02 96.3 119 20 67/46 97 03/31/16 20:00 Nasal Cannula 1.00 21 03/31/16 20:00 96.4 119 19 94/78 96 03/31/16 16:00 97.6 116 16 105/73 94 I/O 03/31/16 03/31/16 03/31/16 04/01/16 04/01/16 04/01/16 07:00 15:00 23:00 07:00 15:00 23:00 Intake Total 240 ml 1264 ml 120 ml 120 ml Output Total 300 ml 250 ml 200 ml 300 ml Balance -60 ml 1014 ml -80 ml -180 ml Intake Oral 240 ml 360 ml 120 ml 120 ml IV Total 904 ml Output Urine Total 300 ml 250 ml 200 ml 300 ml # Bowel Movements 0 0 0 Result Diagram: 04/01/16 0645 04/01/16 0645 Imaging Last Impressions Cyst Biopsy Asp-Paracentesis US 03/31/16 0000 Signed Impressions: Service Date/Time: Thursday, March 31, 2016 19:53 - CONCLUSION: Uncomplicated ultrasound guided paracentesis. Andres Copeland Jr., MD Abdomen Biopsy CT 03/27/16 0000 Signed Impressions: Service Date/Time: February 12:02 - CONCLUSION: Uncomplicated CT guided biopsy of a focal soft tissue density on the right peritoneum.. Alonso Oneil MD Chest X-Ray 03/25/16 [id number] Signed Impressions: Service Date/Time: Friday, March 25, 2016 17:34 - CONCLUSION: Almost complete resolution of the previously seen the right lung base consolidation. Gabrielle Tipton MD Objective Remarks GENERAL: This is a patient who is severely cachectic with bitemporal wasting. SKIN: Bilateral buttocks pressure ulcers present on admission. Cool and dry. HEAD: Atraumatic. Normocephalic.Bitemporal waisting. EYES: No scleral icterus. No injection or drainage. ENT: Nose without bleeding, purulent drainage. NECK: Trachea midline. No JVD or lymphadenopathy. CARDIOVASCULAR: Regular rate and rhythm without murmurs, gallops, or rubs. Dependent edema noted right paraspinal thoracic and lumbar areas. 2-3+ edema ankles and feet. RESPIRATORY: No wheezes, rales. Right upper lobe with expiratory rhonchi; otherwise lungs clear to auscultation in other giles. GASTROINTESTINAL: Abdomen mildly tender with palpation, less distended. No guarding. MUSCULOSKELETAL: Extremities without clubbing, cyanosis. No calf tenderness. Back pain palpable paraspinal around the level of T11. NEUROLOGICAL: Awake and alert. Motor and sensory grossly within normal limits. Normal speech. Procedures -S/P paracentesis -CT guided biopsy of omentum by IR 03/28/16. A/P Problem List: (1) Severe sepsis ICD Code: A41.9 Status: Acute (2) Hyponatremia ICD Code: E87.1 Status: Acute (3) Hyperkalemia ICD Code: E87.5 Status: Resolved (4) Increased anion gap metabolic acidosis ICD Code: E87.2 Status: Acute (5) CHELY (acute kidney injury) ICD Code: N17.9 Status: Acute (6) Thrombocytosis ICD Code: D47.3 Status: Acute (7) Hypoglycemia ICD Code: E16.2 Status: Acute (8) Severe protein-calorie malnutrition ICD Code: E43 Status: Acute (9) Hematemesis ICD Code: K92.0 Status: Acute Assessment and Plan This is a 55-year-old male with past medical history of ascites for which he has gotten multiple ultrasound-guided paracentesis with drainage of large amount of ascites for about the past 6 months. He is here for worsening ascites and shortness of breath and had significant hypotension in the ER with a blood pressure of 77/52 requiring IV albumin and fluids. He is also tachycardic and WBC is elevated at 18.8 with neutrophilia. Lactic acid elevated at 3.1. Potassium 6.6 on admission and sodium is low at 126. Anion gap is elevated at 16 and he shows acute kidney injury with BUN of 71, creatinine 1.95, estimated GFR 36. Hypoglycemia noted with glucose initially 58 and 48 on repeat BMP. Patient BNP 1846. He is notably cachectic with bitemporal wasting and has a low albumin 1.9. Severe sepsis - UTI vs SBP Metabolic acidosis Hypotension Buttocks with pressure wounds, present on admission. Stage 2 pressure injury to sacrum that is resolving. Also stage 4 left ischium pressure injury. Has right upper thigh between hip and ischium skin loss not pressure related. Consult wound care nurse, following. Cleanse wounds with NS and apply foam dressings to change every 3 days or PRN for saturation or dislodgement - Vancomycin IV with pharmacy consult for assistance with therapeutic monitoring and dosing - Rocephin 2 g IV every 12 hours - Blood cultures 2 and urine culture pending; follow results - continuous cardiac telemetry - Albumin 50 g IV 1 dose for severe hypotension 03/25 - Start Albumin 25 g IV bid 03/26 - Received albumin 25 g IV once 03/27, - Increase albumin to 50 g bid IV and bolus of 250 cc NS 03/29 as patient hypotensive. Continue. BP is into a lower side - D5 normal saline at 100 cc per hour.Monitor BS. Patient is not eating much.Consult machine former. - C. difficile toxin negative - Lactic acid sepsis protocol Ascites - S/P Ultrasound-guided abdominal paracentesis with removal if 16L -S/P LP and CT guided biopsy of omentum by IR 03/28/16, pathology shows mesenteric mesothelioma MRI reviewed shows nodularity of the peritoneum with possible omental thickening. CA 15-3 and CA -[address] CT chest no evidence of metastatic disease EGD recent last admission showed ulcer gastritis, esophagitis Colonoscopy recent last admission poor prep however no obvious mass Note patient left AMA last admission and was a plan for biopsy. Patient with anorexia, severe protein beverley malnutrition likely has underlying malignancy. - Add marinol for anorexia GI consulted will hold on any intervention, doesn't plan for colonoscopy Hem/onc consulted Dr Calix appreciate recommendations. S/P biopsy by IR CT abdomen of the omentum, with mesenteric mesothelioma Patient wants time to think if he will pursue medical treatment vs hospice. Reconsult IR for therapeutic paracenthesis. Hyponatremia - initial sodium 126, slowly trending up - D5NS at 100 cc/hr - recheck BMP Hyperkalemia - 6.6 on admission. Resolved - Given D50, insulin, and calcium gluconate in the ER. - Continue wit po supplement - Received D50- 50 cc IV push, and regular insulin 10 units IV Increased anion gap metabolic acidosis. Resolving - Anion gap closed - We'll continue to monitor with repeat BMP Acute kidney Insufficiency Hepato renal syndr, renal indices improved after removal of 16L (paracentesis) - IV fluid hydration with D5 normal saline at 100 cc/h - Avoid nephrotoxins - Repeat BMP and follow trends Thrombocytosis, most likely reactive. monitor . Stable and no signs of bleeding at this time. - Platelet count 70,000 on admission - Repeat CBC in a.m. Hypoglycemia - D50 IV one full vial - Recheck BMP for glucose level Severe protein calorie malnutrition - Consult dietitian to assist with recommendations for dietary intake Hematemesis - Serial H/H stable. Monitor h/h - Transfuse if needed - Consult GI DVT prophylaxis - SCDs - chemoprophylaxis contraindicated; hematemesis Discussed Condition With Patient, nurse Code status: DNR Patient says he want comfort care, however he wants all test done and lots of pain meds at this time. Palliative care consulted for goals of care, pain management as patient is asking for pain meds, however BP is very low. Palliative care also consulted as he says he wants comfort care. Meeting with hospice, poss going hospice. Chiquita Zhao MD Apr 01, 2016 14:54
[2016-04-01] MEDS: ALBUMIN HUMAN 25% 25 GM/100 ML BAGP IV SCH (21:11)
[2016-04-02] VITALS (7 sets, daily range): BP systolic 81–94; BP diastolic 64–71; PULSE 105–113; RESP 20–22; TEMP 96.8–99.3; O2SAT 93–96
[2016-04-02] MEDS: VANCOMYCIN INJ 1,250 MG in SODIUM CHLOR 0.9% 250 ML INJ 250 ML IV SCH ×2 (02:22→14:30)
[2016-04-02] MEDS: ACETAMINOPHEN/HYDROcodone 325 MG/10 MG TAB PO PRN ×2 (05:10→18:30)
[2016-04-02] MEDS: cefTRIAXone INJ 2,000 MG in SODIUM CHLORIDE 0.9% INJ 100 ML IV SCH ×2 (05:10→18:36)
[2016-04-02] MEDS: DIPHENHY/LIDO/MAG/ALUM MOUTHWASH (Adult/Peds) 60 ML BTL SWISH-SWAL SCH ×5 (06:08→20:50)
[2016-04-02] MEDS: CYCLOBENZAPRINE HCL 10 MG TAB PO SCH ×4 (06:08→20:50)
[2016-04-02] MEDS: REMOVE OLD PATCH TD SCH ×2 (06:17→21:00)
--- NOTE | 2016-04-02 08:14 | PD.ONC.PN ---
Subjective Subjective Remarks Afebrile overnight. Patient states he is feeling much better today. So much better that he doesn't want to spoil that good feeling by making any difficult decisions. He states he is still leaning toward hospice. Objective Data Date Time Temp Pulse Resp B/P Pulse Ox O2 Delivery O2 Flow Rate FiO2 04/02/16 05:00 98.1 112 20 92/68 95 04/02/16 00:30 99.3 113 20 90/67 94 04/01/16 21:45 98 04/01/16 21:15 96 Room Air 04/01/16 20:45 98.2 123 20 94/76 96 04/01/16 16:00 98.1 121 22 83/65 97 04/01/16 08:48 Nasal Cannula 1.00 04/01/16 08:29 97.6 102 20 94/56 95 04/01/16 08:27 18 04/01/16 07:56 97 Nasal Cannula 1.00 04/02/16 04/02/16 04/02/16 07:00 15:00 23:00 Intake Total 588 ml Output Total 250 ml Balance 338 ml Result Diagram: 04/01/16 0645 04/01/16 0645 Laboratory Results Laboratory Tests Test 04/01/16 15:00 Vancomycin Level Trough 13.2 MCG/ML Administered Medications Medications (Trade) Dose Ordered Sig/Maude Route PRN Reason Start Time Stop Time Status Last Admin Dose Admin Ceftriaxone Sodium/Sodium Chloride (Rocephin Inj/NS Inj) 100 ml @ 200 mls/hr Q12H IV 03/26/16 06:00 04/02/16 05:10 IV Flush (NS Flush) 2 ml BID FLUSH 03/25/16 21:00 03/30/16 09:00 Ondansetron HCl 4 mg 4 mg Q6H PRN IVP NAUSEA OR VOMITING 03/25/16 18:30 04/01/16 21:10 Dextrose/Sodium Chloride (D5W-NS 1000 ml Inj) 1,000 ml @ 100 mls/hr Q10H IV 03/25/16 23:00 04/01/16 20:41 Lidocaine/ Diphenhydr/Alum/ Mg/Simeth (Magic Mouthwash Pediatric/Adult Liq) 5 ml ACHS SWISH-SWAL 03/26/16 11:00 04/02/16 06:08 Morphine Sulfate (Morphine Inj) 2 mg Q4HR PRN IV PUSH breakthrough pain 03/26/16 17:45 03/30/16 10:53 Cyclobenzaprine HCl (Flexeril) 5 mg Q8HR PO 03/28/16 14:00 04/02/16 06:08 Calcium Carbonate (Tums Chew) 500 mg Q12HR CHEW 03/29/16 09:00 04/01/16 21:26 Magnesium Oxide (Mag-Ox) 400 mg DAILY PO 03/29/16 09:00 04/01/16 08:47 Lidocaine HCl (Lidoderm 5% Patch.12 Hr) 1 patch DAILY TD 03/29/16 09:00 04/01/16 08:47 Miscellaneous Information 1 HS TD 03/29/16 21:00 04/02/16 06:17 Albumin Human (Albumin 25% Inj) 50 gm Q12H IV 03/29/16 10:00 04/01/16 21:11 Dronabinol (Marinol) 2.5 mg BID@11,16 PO 03/29/16 16:00 04/01/16 17:34 Acetaminophen/ Hydrocodone Bitart (Pray 10-325 Mg) 1 tab Q6H PRN PO pain 1-10 03/31/16 11:15 04/02/16 05:10 Folic Acid 1 mg 1 mg DAILY PO 03/31/16 11:30 04/01/16 08:47 Vancomycin HCl/ Sodium Chloride (Vancomycin Inj/ NS 250 ml Inj) 262.5 ml @ 250 mls/hr Q12H IV 03/31/16 15:00 04/02/16 02:22 Objective Remarks GENERAL: Cachetic male, sitting up in bed in nad. SKIN: Warm and dry. HEAD: Normocephalic. EYES: No injection or drainage. NECK: Supple, trachea midline. CARDIOVASCULAR: Regular rate and rhythm RESPIRATORY: Breath sounds equal bilaterally. No accessory muscle use. GASTROINTESTINAL: abdomen mildly distended with ascites. EXTREMITIES: No cyanosis NEUROLOGICAL: awake and alert, normal speech. oriented and appropriate. Assessment/Plan Problem List: (1) Mesothelioma, malignant Status: Acute Plan: --palliative care following. patient is leaning toward hospice. on patient had meeting with hospice but has not enrolled with hospice yet CT chest -- no mets --EGD showed ulcer, gastritis, esophagitis. --Colonoscopy was a poor prep but no obvious mass noted. --He left against medical advice the last time he was here. He now re- presented with increased shortness of breath and tense ascites. --had another paracentesis and removal of 16 liters of clear yellow fluid 03/26. --03/31/16 paracentesis with removal >18L. The pt was told of his diagnosis of malignant mesothelioma. extensive discussion with patient and his father at the bedside. treatment options reviewed. patient stated that he is always against chemotherapy and he does not think he would consider chemotherapy. He would like to pursue alternative medicine. At this time, he is leaning towards hospice for comfort care but he wants more time to think about it. (2) Malnutrition Status: Acute Plan: --continue nutritional support (3) CHELY (acute kidney injury) Status: Resolved Plan: --Acute renal failure likely due to third spacing. His creatinine has improved after the paracentesis. Assessment 55y/o male with malignant mesothelioma (biphasic type) diagnosed in 02/2016. --has had recurrent ascites since September 2015. Plan 1. discussed hospice vs. pursuing treatment--patient is not ready to make a decision. 2. would recommend pleur-x placement is he pursues hospice. If he decides on treatment, pleur-x cath would not be appropriate yet. Attending Statement The exam, history, and the medical decision-making described in the above note were completed with the assistance of the mid-level provider. I reviewed and agree with the findings presented. I attest that I had a [id number] encounter with the patient on the same day, and personally performed and documented my assessment and findings in the medical record. Feeling better. Abdomen is soft. He is going to meet with hospice again. He has decided not to have chemotherapy and plan on trying alternative medicine as outpt. He is going to need periodic palliative paracentesis. No toher oncologic intervention at this time. He can be d/c from oncology standpoint. Chiquita Bahena Apr 02, 2016 08:14 Kane Calix MD Apr 02, 2016 15:44
[2016-04-02] MEDS: SODIUM CHLORIDE 0.9% FLUSH 5 ML FLUSH FLUSH SCH ×3 (08:50→20:50)
[2016-04-02] MEDS: CALCIUM CARBONATE 500 MG CHEWABLE TAB CHEW SCH ×3 (08:50→20:50)
--- NOTE | 2016-04-02 09:42 | HHI.PR ---
Subjective Remarks Says he has fluid accumulating in his belly however not much pain. Says he feels improved today. He is also talking with hospice. No fever or chills. Pain is fairly controlled by meds. Objective Vitals Vital Signs Date Time Temp Pulse Resp B/P Pulse Ox O2 Delivery O2 Flow Rate FiO2 04/02/16 05:00 98.1 112 20 92/68 95 04/02/16 00:30 99.3 113 20 90/67 94 04/01/16 21:45 98 04/01/16 21:15 96 Room Air 04/01/16 20:45 98.2 123 20 94/76 96 04/01/16 16:00 98.1 121 22 83/65 97 I/O 04/01/16 04/01/16 04/01/16 04/02/16 04/02/16 04/02/16 07:00 15:00 23:00 07:00 15:00 23:00 Intake Total 120 ml 960 ml 1484 ml 588 ml Output Total 300 ml 600 ml 575 ml 250 ml Balance -180 ml 360 ml 909 ml 338 ml Intake Oral 120 ml 960 ml 360 ml IV Total 1124 ml 588 ml Output Urine Total 300 ml 600 ml 575 ml 250 ml # Bowel Movements 0 Result Diagram: 04/01/16 0645 04/01/16 0645 Imaging Last Impressions Cyst Biopsy Asp-Paracentesis US 03/31/16 0000 Signed Impressions: Service Date/Time: Thursday, March 31, 2016 19:53 - CONCLUSION: Uncomplicated ultrasound guided paracentesis. Andres Copeland Jr., MD Abdomen Biopsy CT 03/27/16 0000 Signed Impressions: Service Date/Time: February 12:02 - CONCLUSION: Uncomplicated CT guided biopsy of a focal soft tissue density on the right peritoneum.. Alonso Oneil MD Chest X-Ray 03/25/16 1718 Signed Impressions: Service Date/Time: Friday, March 25, 2016 17:34 - CONCLUSION: Almost complete resolution of the previously seen the right lung base consolidation. Gabrielle Tipton MD Objective Remarks GENERAL: This is a patient who is severely cachectic with bitemporal wasting. SKIN: Bilateral buttocks pressure ulcers present on admission. Cool and dry. HEAD: Atraumatic. Normocephalic.Bitemporal waisting. EYES: No scleral icterus. No injection or drainage. ENT: Nose without bleeding, purulent drainage. NECK: Trachea midline. No JVD or lymphadenopathy. CARDIOVASCULAR: Regular rate and rhythm without murmurs, gallops, or rubs. Dependent edema noted right paraspinal thoracic and lumbar areas. 2-3+ edema ankles and feet. RESPIRATORY: No wheezes, rales. Right upper lobe with expiratory rhonchi; otherwise lungs clear to auscultation in other giles. GASTROINTESTINAL: Abdomen mildly tender with palpation, less distended. No guarding. MUSCULOSKELETAL: Extremities without clubbing, cyanosis. No calf tenderness. Back pain palpable paraspinal around the level of T11. NEUROLOGICAL: Awake and alert. Motor and sensory grossly within normal limits. Normal speech. Procedures -S/P paracentesis -CT guided biopsy of omentum by IR 03/28/16. A/P Problem List: (1) Severe sepsis ICD Code: A41.9 Status: Acute (2) Hyponatremia ICD Code: E87.1 Status: Acute (3) Hyperkalemia ICD Code: E87.5 Status: Resolved (4) Increased anion gap metabolic acidosis ICD Code: E87.2 Status: Acute (5) CHELY (acute kidney injury) ICD Code: N17.9 Status: Resolved (6) Thrombocytosis ICD Code: D47.3 Status: Acute (7) Hypoglycemia ICD Code: E16.2 Status: Acute (8) Severe protein-calorie malnutrition ICD Code: E43 Status: Acute (9) Hematemesis ICD Code: K92.0 Status: Acute Assessment and Plan This is a 55-year-old male with past medical history of ascites for which he has gotten multiple ultrasound-guided paracentesis with drainage of large amount of ascites for about the past 6 months. He is here for worsening ascites and shortness of breath and had significant hypotension in the ER with a blood pressure of 77/52 requiring IV albumin and fluids. He is also tachycardic and WBC is elevated at 18.8 with neutrophilia. Lactic acid elevated at 3.1. Potassium 6.6 on admission and sodium is low at 126. Anion gap is elevated at 16 and he shows acute kidney injury with BUN of 71, creatinine 1.95, estimated GFR 36. Hypoglycemia noted with glucose initially 58 and 48 on repeat BMP. Patient BNP 1846. He is notably cachectic with bitemporal wasting and has a low albumin 1.9. Severe sepsis - UTI vs SBP Metabolic acidosis Hypotension Buttocks with pressure wounds, present on admission. Stage 2 pressure injury to sacrum that is resolving. Also stage 4 left ischium pressure injury. Has right upper thigh between hip and ischium skin loss not pressure related. Consult wound care nurse, following. Cleanse wounds with NS and apply foam dressings to change every 3 days or PRN for saturation or dislodgement - Vancomycin IV with pharmacy consult for assistance with therapeutic monitoring and dosing - Rocephin 2 g IV every 12 hours - Blood cultures 2 and urine culture pending; follow results - continuous cardiac telemetry - Albumin 50 g IV 1 dose for severe hypotension 03/25 - Start Albumin 25 g IV bid 03/26 - Received albumin 25 g IV once 03/27, - Increase albumin to 50 g bid IV and bolus of 250 cc NS 03/29 as patient hypotensive. Continue. BP is into a lower side - D5 normal saline at 100 cc per hour.Monitor BS. Patient is not eating much.Consult acid recovery operator. - C. difficile toxin negative - Lactic acid sepsis protocol Ascites - S/P Ultrasound-guided abdominal paracentesis with removal if 16L -S/P LP and CT guided biopsy of omentum by IR 03/28/16, pathology shows mesenteric mesothelioma MRI reviewed shows nodularity of the peritoneum with possible omental thickening. CA 15-3 and CA -125 elevated but [address] specific CT chest no evidence of metastatic disease EGD recent last admission showed ulcer gastritis, esophagitis Colonoscopy recent last admission poor prep however no obvious mass Note patient left AMA last admission and was a plan for biopsy. Patient with anorexia, severe protein beverley malnutrition likely has underlying malignancy. - Add marinol for anorexia GI consulted will hold on any intervention, doesn't plan for colonoscopy Hem/onc consulted Dr Calix appreciate recommendations. S/P biopsy by IR CT abdomen of the omentum, with mesenteric mesothelioma Patient wants time to think if he will pursue medical treatment vs hospice. Reconsult IR for therapeutic paracenthesis. Hyponatremia - initial sodium 126, slowly trending up - D5NS at 100 cc/hr - recheck BMP Hyperkalemia - 6.6 on admission. Resolved - Given D50, insulin, and calcium gluconate in the ER. - Continue wit po supplement - Received D50- 50 cc IV push, and regular insulin 10 units IV Increased anion gap metabolic acidosis. Resolving - Anion gap closed - We'll continue to monitor with repeat BMP Acute kidney Insufficiency Hepato renal syndr, renal indices improved after removal of 16L (paracentesis) - IV fluid hydration with D5 normal saline at 100 cc/h - Avoid nephrotoxins - Repeat BMP and follow trends Thrombocytosis, most likely reactive. monitor . Stable and no signs of bleeding at this time. - Platelet count 70,000 on admission - Repeat CBC in a.m. Hypoglycemia - D50 IV one full vial - Recheck BMP for glucose level Severe protein calorie malnutrition - Consult dietitian to assist with recommendations for dietary intake Hematemesis - Serial H/H stable. Monitor h/h - Transfuse if needed - Consult GI DVT prophylaxis - SCDs - chemoprophylaxis contraindicated; hematemesis Discussed Condition With Patient, nurse Code status: DNR Patient says he want comfort care, however he wants all test done and lots of pain meds at this time. Palliative care consulted for goals of care, pain management as patient is asking for pain meds, however BP is very low. Palliative care also consulted as he says he wants comfort care. Meeting with hospice, poss going hospice. Chiquita Zhao MD Apr 02, 2016 09:42
[2016-04-02] MEDS: MAGNESIUM OXIDE 400 MG TAB PO SCH (10:36)
[2016-04-02] MEDS: FOLIC ACID 1 MG TAB PO SCH (10:36)
[2016-04-02] MEDS: LIDOCAINE HCL 5% PATCH TD SCH (10:37)
[2016-04-02] MEDS: ALBUMIN HUMAN 25% 25 GM/100 ML BAGP IV SCH ×2 (10:37→20:05)
[2016-04-02] MEDS: DRONABINOL 2.5 MG CAP PO SCH ×2 (10:41→16:00)
[2016-04-02] MEDS: MORPHINE SULFATE 4 MG/ML INJ IV PUSH PRN ×2 (10:41→22:06)
[2016-04-03] VITALS: BP 91/61; PULSE 104; RESP 18; TEMP 97.5; O2SAT 95
[2016-04-03] MEDS: VANCOMYCIN INJ 1,250 MG in SODIUM CHLOR 0.9% 250 ML INJ 250 ML IV SCH ×2 (02:43→14:26)
[2016-04-03] MEDS: DEXT 5%-NACL 0.9% 1000 ML INJ 1,000 ML IV SCH ×2 (02:43→14:31)
[2016-04-03 04:00] VITALS: BP 108/63; PULSE 105; RESP 18; TEMP 96.2; O2SAT 97
[2016-04-03] MEDS: ACETAMINOPHEN/HYDROcodone 325 MG/10 MG TAB PO PRN ×3 (04:51→22:47)
[2016-04-03] MEDS: CYCLOBENZAPRINE HCL 10 MG TAB PO SCH ×3 (06:00→22:45)
[2016-04-03] MEDS: MORPHINE SULFATE 4 MG/ML INJ IV PUSH PRN ×3 (06:00→15:20)
[2016-04-03] MEDS: cefTRIAXone INJ 2,000 MG in SODIUM CHLORIDE 0.9% INJ 100 ML IV SCH ×2 (06:00→18:29)
[2016-04-03] MEDS: DIPHENHY/LIDO/MAG/ALUM MOUTHWASH (Adult/Peds) 60 ML BTL SWISH-SWAL SCH ×4 (06:01→22:55)
[2016-04-03 08:34] LABS: MAGNESIUM 1.4 MG/DL (1.5-2.5)
[2016-04-03] MEDS: ALBUMIN HUMAN 25% 25 GM/100 ML BAGP IV SCH ×2 (11:08→22:46)
[2016-04-03] MEDS: DRONABINOL 2.5 MG CAP PO SCH ×2 (11:09→16:00)
[2016-04-03] MEDS: CALCIUM CARBONATE 500 MG CHEWABLE TAB CHEW SCH ×2 (11:11→22:45)
[2016-04-03] MEDS: LIDOCAINE HCL 5% PATCH TD SCH (11:12)
[2016-04-03] MEDS: FOLIC ACID 1 MG TAB PO SCH (11:12)
[2016-04-03] MEDS: MAGNESIUM OXIDE 400 MG TAB PO SCH (11:13)
--- NOTE | 2016-04-03 13:54 | PD.ONC.PN ---
Subjective Subjective Remarks Pain controlled. Able to eat more. No abdominal pain. Objective Data Date Time Temp Pulse Resp B/P Pulse Ox O2 Delivery O2 Flow Rate FiO2 04/03/16 13:07 21 04/03/16 04:00 96.2 105 18 108/63 97 04/03/16 00:00 97.5 104 18 91/61 95 04/02/16 21:00 96.9 105 20 94/69 95 04/02/16 20:50 95 Room Air 04/02/16 18:11 96.8 110 20 81/64 96 Result Diagram: 04/01/16 0645 04/03/16 0706 Laboratory Results Laboratory Tests Test 04/03/16 07:06 Creatinine 0.36 MG/DL Estimat Glomerular Filtration 253 ML/MIN Rate Magnesium Level 1.4 MG/DL Administered Medications Medications (Trade) Dose Ordered Sig/Maude Route PRN Reason Start Time Stop Time Status Last Admin Dose Admin Ceftriaxone Sodium/Sodium Chloride (Rocephin Inj/NS Inj) 100 ml @ 200 mls/hr Q12H IV 03/26/16 06:00 04/03/16 06:00 IV Flush (NS Flush) 2 ml BID FLUSH 03/25/16 21:00 04/02/16 20:50 Ondansetron HCl 4 mg 4 mg Q6H PRN IVP NAUSEA OR VOMITING 03/25/16 18:30 04/01/16 21:10 Dextrose/Sodium Chloride (D5W-NS 1000 ml Inj) 1,000 ml @ 100 mls/hr Q10H IV 03/25/16 23:00 04/03/16 02:43 Lidocaine/ Diphenhydr/Alum/ Mg/Simeth (Magic Mouthwash Pediatric/Adult Liq) 5 ml ACHS SWISH-SWAL 03/26/16 11:00 04/03/16 06:01 Morphine Sulfate (Morphine Inj) 2 mg Q4HR PRN IV PUSH breakthrough pain 03/26/16 17:45 04/03/16 11:13 Cyclobenzaprine HCl (Flexeril) 5 mg Q8HR PO 03/28/16 14:00 04/03/16 06:00 Calcium Carbonate (Tums Chew) 500 mg Q12HR CHEW 03/29/16 09:00 04/03/16 11:11 Magnesium Oxide (Mag-Ox) 400 mg DAILY PO 03/29/16 09:00 04/03/16 11:13 Lidocaine HCl (Lidoderm 5% Patch.12 Hr) 1 patch DAILY TD 03/29/16 09:00 04/03/16 11:12 Miscellaneous Information 1 HS TD 03/29/16 21:00 04/02/16 21:00 Albumin Human (Albumin 25% Inj) 50 gm Q12H IV 03/29/16 10:00 04/03/16 11:08 Dronabinol (Marinol) 2.5 mg BID@11,16 PO 03/29/16 16:00 04/03/16 11:09 Acetaminophen/ Hydrocodone Bitart (Martell 10-325 Mg) 1 tab Q6H PRN PO pain 1-10 03/31/16 11:15 04/03/16 04:51 Folic Acid 1 mg 1 mg DAILY PO 03/31/16 11:30 04/03/16 11:12 Vancomycin HCl/ Sodium Chloride (Vancomycin Inj/ NS 250 ml Inj) 262.5 ml @ 250 mls/hr Q12H IV 03/31/16 15:00 04/03/16 02:43 Objective Remarks GENERAL: Cachectic and weak. SKIN: Warm and dry. HEAD: Normocephalic. EYES: No scleral icterus. No injection or drainage. NECK: Supple, trachea midline. No JVD or lymphadenopathy. LYMPHATIC: No adenopathy. CARDIOVASCULAR: Regular rate and rhythm without murmurs. RESPIRATORY: Breath sounds equal bilaterally. No accessory muscle use. GASTROINTESTINAL: Abdomen soft, distended, +BS EXTREMITIES: No cyanosis, or edema. MUSCULOSKELETAL: Adequate muscle tone. NEUROLOGICAL: No obvious focal deficit. Awake, alert, and oriented x3. PSYCHIATRIC: Appropriate mood and affect; insight and judgment normal. Assessment/Plan Problem List: (1) Mesothelioma, malignant Status: Acute Plan: --palliative care following. patient is leaning toward hospice. on patient had meeting with hospice but has not enrolled with hospice yet CT chest -- no mets --EGD showed ulcer, gastritis, esophagitis. --Colonoscopy was a poor prep but no obvious mass noted. --He left against medical advice the last time he was here. He now re- presented with increased shortness of breath and tense ascites. --had another paracentesis and removal of 16 liters of clear yellow fluid 03/26. --03/31/16 paracentesis with removal >18L. The pt was told of his diagnosis of malignant mesothelioma. extensive discussion with patient and his father at the bedside. treatment options reviewed. patient stated that he is always against chemotherapy and he does not think he would consider chemotherapy. He would like to pursue alternative medicine. At this time, he is leaning towards hospice for comfort care but he wants more time to think about it. (2) Malnutrition Status: Acute Plan: --continue nutritional support (3) CHELY (acute kidney injury) Status: Resolved Plan: --Acute renal failure likely due to third spacing. His creatinine has improved after the paracentesis. Assessment 55y/o male with malignant mesothelioma (biphasic type) diagnosed in 02/2016. --has had recurrent ascites since September 2015. Plan 1. He is leaning toward hospice. He does not want chemotherapy. 2. No need for paracentesis today. 2. Can be d/c home with hospice from oncology standpoint. Kane Calix MD Apr 03, 2016 13:54
--- NOTE | 2016-04-03 14:15 | HHI.HCPN ---
Reason for visit a. To assist with evaluation and management of symptoms including: Dyspnea, pain, ascites b. To assist medical decision maker(s) with: better understanding of current medical conditions; weighing benefits/burdens of medical treatment options; making medical treatment decisions. (Raisa Garrett) Subjective/Interval History Patient seen in follow-up on comfort , goals. Pathology resulted as mesothelioma, oncology has had ongoing discussions w pt RE palliative chemo vs. hospice and comfort measures. I met w pt earlier this week, when his father was in town, he was not ready to make a decision yet regarding treatment goals. Hospice has also been following and met with patient , discussed with inside tester earlier today they notified that he had indicated that he was still not sure of how he wanted to proceed. Eating 25% of most meals. Reporting pain to upper back from 28. Has prn norco 10mg, morphine 2mg. PRNs required-- 1 dose norco today, 1 dose yesterday. 2 doses prn morphine today, 2 doses yesterday. Patient seen today in room no visitors present. He is awake, tells me he is waiting on the nurse to help him come reposition. No complaints. Endorses his pain has been much better and he is feeling better rested. He endorses that he is eating better and resting better . Denies any shortness of breath. Denies any abdominal discomfort. Endorses still has the pain in his back when swallowing but is much better. Says he feels better now than he has in a while. Explore with him his goals given current diagnoses. He informs me that he will tell me "what he has told everyone else "that he is not ready to make a decision yet and he will let us know when he does. Explore with him his understanding of the chemotherapy offered versus hospice and his understanding of hospice role in services. Does not wish to further engage he tells me he knows what his options are and he will decide when he is ready and that will not be right this minute. He tells me the hospital is rushing him to make a decision. Gently explore that if he did desire any sort of aggressive treatments we would want to initiate those as soon as possible; conversely if his goals were comfort we would want to ensure that appropriate comfort measures were in place. Attempt to explore barriers to his decision-making ask him about his support system as his father was here earlier this week ask him what his father thought about all of this, he tells me he has not his father's decision and his father would make decisions quickly but he does not. Ask him if he is worried about who will care for his mother at home--he does answer any further questions tells me he will decide when he is ready. Discuss with case management, hospice airplane inspector. . (Raisa Garrett) Advance Directives Living Will: Never completed Health Care Surrogate: Never completed (Raisa Garrett) Objective Vital Signs Date Time Temp Pulse Resp B/P Pulse Ox O2 Delivery O2 Flow Rate FiO2 04/03/16 13:07 21 04/03/16 04:00 96.2 105 18 108/63 97 04/03/16 00:00 97.5 104 18 91/61 95 04/02/16 21:00 96.9 105 20 94/69 95 04/02/16 20:50 95 Room Air 04/02/16 18:11 96.8 110 20 81/64 96 Physical Exam CONSTITUTIONAL/GENERAL: Very cachectic, frail-appearing patient. Temporal wasting evident. Awake, no pain or distress TUBES/LINES/DRAINS: Peripheral IV upper extremity. CARDIOVASCULAR: Regular rate and rhythm. No peripheral edema observed. RESPIRATORY/CHEST: Symmetric, unlabored respirations room air GI/: Abdomen round, slightly distended, mildly tender. MUSCULOSKELETAL: Extremities without clubbing, cyanosis, or edema. Extremities extremely thin with significant muscle atrophy 4. NEUROLOGICAL: Awake and alert-oriented x3. Appears to have reasonable insight. Moves all 4 extremities. PSYCHIATRIC: No obvious anxiety/depression. no apparent hallucinations or other psychotic thought process. . (Raisa Garrett) Diagnostic Tests Laboratory Laboratory Tests Test 04/01/16 04/01/16 04/03/16 06:45 15:00 07:06 White Blood Count 4.6 TH/MM3 (4.0-11.0) Red Blood Count 3.44 MIL/MM3 (4.50-5.90) Hemoglobin 10.5 GM/DL (13.0-17.0) Hematocrit 31.5 % (39.0-51.0) Mean Corpuscular Volume 91.4 FL (80.0-100.0) Mean Corpuscular Hemoglobin 30.6 PG (27.0-34.0) Mean Corpuscular Hemoglobin 33.4 % Concent (32.0-36.0) Red Cell Distribution Width 16.9 % (11.6-17.2) Platelet Count 449 TH/MM3 (150-450) Mean Platelet Volume 8.0 FL (7.0-11.0) Neutrophils (%) (Auto) 79.7 % (16.0-70.0) Lymphocytes (%) (Auto) 7.8 % (9.0-44.0) Monocytes (%) (Auto) 10.4 % (0.0-8.0) Eosinophils (%) (Auto) 1.5 % (0.0-4.0) Basophils (%) (Auto) 0.6 % (0.0-2.0) Neutrophils # (Auto) 3.6 TH/MM3 (1.8-7.7) Lymphocytes # (Auto) 0.4 TH/MM3 (1.0-4.8) Monocytes # (Auto) 0.5 TH/MM3 (0-0.9) Eosinophils # (Auto) 0.1 TH/MM3 (0-0.4) Basophils # (Auto) 0.0 TH/MM3 (0-0.2) CBC Comment DIFF FINAL Differential Comment Sodium Level 137 MEQ/L (136-145) Potassium Level 3.7 MEQ/L (3.5-5.1) Chloride Level 105 MEQ/L (98-107) Carbon Dioxide Level 24.3 MEQ/L (21.0-32.0) Anion Gap 8 MEQ/L (5-15) Blood Urea Nitrogen 18 MG/DL (7-18) Creatinine 0.36 MG/DL 0.36 MG/DL (0.60-1.30) (0.60-1.30) Estimat Glomerular Filtration 253 ML/MIN 253 ML/MIN Rate (>89) (>89) Random Glucose 81 MG/DL (74-106) Calcium Level 7.0 MG/DL (8.5-10.1) Protein Corrected Calcium 8.2 MG/DL (8.5-10.1) Magnesium Level 1.5 MG/DL 1.4 MG/DL (1.5-2.5) (1.5-2.5) Total Protein 4.8 GM/DL (6.4-8.2) Vancomycin Level Trough 13.2 MCG/ML (5.0-10.0) (TamiRaisa) Result Diagram: 04/01/16 0645 04/03/16 0706 Procedures 03/27CT-guided biopsy. 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, biphasic (TamiRaisa) Assessment and Plan Disease Oriented Problem List: (1) Abdominal distention (2) Ascites (3) SOB (shortness of breath) (4) Hypotension (5) Hypoglycemia (6) Severe protein-calorie malnutrition (7) CHELY (acute kidney injury) Symptom Scale: (1) Ascites 0-10 Scale: Unable to quantify (2) Dyspnea 0-10 Scale: Unable to quantify (3) Malnutrition 0-10 Scale: Unable to quantify (4) Pain 0-10 Scale: Unable to quantify Pertinent Non-Medical Issues Psychosocial:Patient originally from [facility] though has lived in [place] for much of his life. Supported by his father, as well as a close friend named Brodie. 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 Not , no children. Spiritual: Religion per EMR Legal:Patient appears to be fairly oriented and appropriate though difficult to fully assess insight. Affect is withdrawn and very limited engagement--appears to have some behavioral/personality component to his behavior/interaction. Appears he may be able to make his own decisions. Not , no children. Appears per [place] statutes his father would be legal decision maker if he were to become incapacitated. I attempt to explore health care surrogate designation with him he indicates he would want his father called in the case of an emergency Ethical issues impacting care: Important Contacts Bhavik Hernandez (father) [phone] Brodie Díaz (friend) [phone] . Prognosis Patient is cachectic, with significant unintentional weight loss. Suspected underlying malignancy --CT-guided abdominal biopsy indicative of biphasic mesothelioma. Poor performance status, frail underlying condition, patient could consider seeking treatment at [facility] [place] versus palliative chemotherapy locally , or comfort measures would be appropriate. . Code Status: No Code Plan * Legal decision maker:Patient appears to be fairly oriented and appropriate though difficult to fully assess insight. Affect is withdrawn and very limited engagement--appears to have some behavioral/personality component to his behavior/interaction. Appears he may be able to make his own decisions. Not , no children. Appears per [place] statutes his father would be legal decision maker if he were to become incapacitated. I attempt to explore health care surrogate designation with him he indicates he would want his father called in the case of an emergency * Goals: Patient is still undecided regarding pursuing palliative chemotherapy versus hospice and comfort. He has previously indicated that he is leaning towards hospice though has not made a decision yet. Today he is still undecided -- indicates that he is feeling rushed and will decide when he is ready. * CODE STATUS: DNR * SYMPTOMS: --Ascites-? Etiology, likely malignancy. Pathology + mesothelioma. Ongoing ascites for the past several months requiring frequent paracentesis for large amount of volume most recently 03/27 for 16 L. Consider IR for Aspira catheter for frequent drainage. this has been discussed w pt/may consider prior to d/c if elects hospice? --Dyspnea -patient denies any dyspnea. indicates has been fine since the paracentesis and that is not his primary concern. comfortable on Rm air. We'll continue to monitor. --Paindenies abdominal pain, has had some but has improved since paracentesis. primary pain is "at the back of his throat going through to his spine "-- this pain is "much better today" and in the past few days. Has prn medications [place], morphine available, which she indicates are currently effective. [ required-- 1 dose norco today, 1 dose yesterday. 2 doses prn morphine today, 2 doses yesterday] Could consider up titration of opiates for pain relief if prn use ineffective, though appears effective at this time. Will cont to evaluate --Malnutrition-albumin 1.9. Patient extremely frail, cachectic. Unintentional weight loss of around 40-50 pounds. Poor oral intake secondary to pain and nausea.denies nausea, recently indicates swallowing is improved. Likely 2/2 malignancy. * Palliative care will continue to follow during hospital course as condition evolves, to assist patient/decision-maker with understanding of medical conditions, weighing benefits/burdens of treatment options, for clarification of goals of treatment. Additionally will assist with any symptoms of palliative concern (Raisa Garrett) Time Spent Total Floor Time (mins): 15 >50% Counseling/Coord of Care: Yes (d/w CM, hospice admission RN) (Riasa Garrett) Attestation To help prompt me to consider important information that might be impacting today's encounter and assessment, information from prior notes written by myself or my colleagues may have been "brought forward" into today's note. My signature on this note, however, is an attestation that I personally performed the exam, history, and/or decision-making noted today, and, unless otherwise indicated, the interactions with patient, family, and staff as well as the review of records all occurred today. I also attest that the listed assessment and stated plan reflect my best clinical judgment today based on the combination of historical information, prior notes, and today's exam/ interactions. When time spent is documented, it refers only to time spent today by the signer, or if indicated, combined time spent today by collaborating physician/nurse practitioner. (Raisa Garrett) Collaborating MD Comments Chart reviewed. Case discussed with palliative care BILL HIKER. Above BILL HIKER note reviewed and I concur. . (Chidi Rich MD) Raisa Garrett Apr 03, 2016 14:15 Chidi Rich MD May 18, 2016 14:03
[2016-04-03] MEDS: ONDANSETRON HCL 4 MG/2 ML VIAL IVP PRN ×2 (14:28→22:52)
[2016-04-03] MEDS: SODIUM CHLORIDE 0.9% FLUSH 5 ML FLUSH FLUSH SCH ×2 (14:29→22:45)
--- NOTE | 2016-04-03 15:21 | HHI.PR ---
Subjective Remarks no complains of abdominal pain, nausea or vomiting Objective Vitals Vital Signs Date Time Temp Pulse Resp B/P Pulse Ox O2 Delivery O2 Flow Rate FiO2 04/03/16 13:35 Room Air 1.00 Nasal Cannula 04/03/16 13:07 21 04/03/16 04:00 96.2 105 18 108/63 97 04/03/16 00:00 97.5 104 18 91/61 95 04/02/16 21:00 96.9 105 20 94/69 95 04/02/16 20:50 95 Room Air 04/02/16 18:11 96.8 110 20 81/64 96 I/O 04/02/16 04/02/16 04/02/16 04/03/16 04/03/16 04/03/16 07:00 15:00 23:00 07:00 15:00 23:00 Intake Total 588 ml 240 ml 120 ml 1910 ml Output Total 250 ml 600 ml 475 ml 150 ml Balance 338 ml -360 ml -355 ml 1760 ml Intake Oral 240 ml 120 ml 240 ml IV Total 588 ml 1670 ml Output Urine Total 250 ml 600 ml 475 ml 150 ml # Bowel Movements 0 Result Diagram: 04/01/16 0645 04/03/16 0706 Imaging Last Impressions Cyst Biopsy Asp-Paracentesis US 03/31/16 0000 Signed Impressions: Service Date/Time: Thursday, March 31, 2016 19:53 - CONCLUSION: Uncomplicated ultrasound guided paracentesis. Andres Copeland Jr., MD Abdomen Biopsy CT 03/27/16 0000 Signed Impressions: Service Date/Time: February 12:02 - CONCLUSION: Uncomplicated CT guided biopsy of a focal soft tissue density on the right peritoneum.. Alonso Oneil MD Chest X-Ray 03/25/16 1718 Signed Impressions: Service Date/Time: Friday, March 25, 2016 17:34 - CONCLUSION: Almost complete resolution of the previously seen the right lung base consolidation. Gabrielle Tipton MD Objective Remarks awake and alert, oriented x 3 cachectic looking anicteric decrease breath sounds left LF abdomen-+ fluid wave extremities no edema Procedures -S/P paracentesis -CT guided biopsy of omentum by IR 03/28/16. A/P Problem List: (1) Severe sepsis ICD Code: A41.9 Status: Acute (2) Hyponatremia ICD Code: E87.1 Status: Acute (3) Hyperkalemia ICD Code: E87.5 Status: Resolved (4) Increased anion gap metabolic acidosis ICD Code: E87.2 Status: Acute (5) CHELY (acute kidney injury) ICD Code: N17.9 Status: Resolved (6) Thrombocytosis ICD Code: D47.3 Status: Acute (7) Hypoglycemia ICD Code: E16.2 Status: Acute (8) Severe protein-calorie malnutrition ICD Code: E43 Status: Acute (9) Hematemesis ICD Code: K92.0 Status: Acute Assessment and Plan This is a 55-year-old male with past medical history of ascites for which he has gotten multiple ultrasound-guided paracentesis with drainage of large amount of ascites for about the past 6 months. He is here for worsening ascites and shortness of breath and had significant hypotension in the ER with a blood pressure of 77/52 requiring IV albumin and fluids. He is also tachycardic and WBC is elevated at 18.8 with neutrophilia. Lactic acid elevated at 3.1. Potassium 6.6 on admission and sodium is low at 126. Anion gap is elevated at 16 and he shows acute kidney injury with BUN of 71, creatinine 1.95, estimated GFR 36. Hypoglycemia noted with glucose initially 58 and 48 on repeat BMP. Patient BNP 1846. He is notably cachectic with bitemporal wasting and has a low albumin 1.9. Severe sepsis - UTI vs SBP Metabolic acidosis Hypotension Buttocks with pressure wounds, present on admission. Stage 2 pressure injury to sacrum that is resolving. Also stage 4 left ischium pressure injury. Has right upper thigh between hip and ischium skin loss not pressure related. Consult wound care nurse, following. Cleanse wounds with NS and apply foam dressings to change every 3 days or PRN for saturation or dislodgement - Vancomycin IV with pharmacy consult for assistance with therapeutic monitoring and dosing - Rocephin 2 g IV every 12 hours - Blood cultures 2 and urine culture pending; follow results - continuous cardiac telemetry - Start Albumin 25 g IV bid 03/26 - Received albumin 25 g IV once 03/27, - Increase albumin to 50 g bid IV. Lasix 10 mg IV after each Albumin infusion for 1-2 days more then DC. - Patient is not eating much. - C. difficile toxin negative - Lactic acid sepsis protocol Recurrent Ascites - S/P Ultrasound-guided abdominal paracentesis with removal if 16L -S/P LP and CT guided biopsy of omentum by IR 03/28/16, pathology shows mesenteric mesothelioma MRI reviewed shows nodularity of the peritoneum with possible omental thickening. CA 15-3 and CA -125 elevated but [address] specific CT chest no evidence of metastatic disease EGD recent last admission showed ulcer gastritis, esophagitis Colonoscopy recent last admission poor prep however no obvious mass Note patient left AMA last admission and was a plan for biopsy. Patient with anorexia, severe protein beverley malnutrition likely has underlying malignancy. -marinol for anorexia GI consulted will hold on any intervention, doesn't plan for colonoscopy Hem/onc consulted Dr Calix appreciate recommendations. S/P biopsy by IR CT abdomen of the omentum, with mesenteric mesothelioma Patient wants time to think if he will pursue medical treatment vs hospice. Reconsult IR for therapeutic paracentesis in am Clifton Villalba MD Apr 03, 2016 15:21 Clifton Villalba MD Apr 03, 2016 15:21 Clifton Villalba MD Apr 03, 2016 15:21
[2016-04-03 16:00] VITALS: BP 86/59; PULSE 104; RESP 18; TEMP 97.4; O2SAT 92
[2016-04-03] MEDS ORDERED: FUROSEMIDE 20 MG/2 ML VIAL IV PUSH SCH ×2 (18:00)
[2016-04-03 20:00] VITALS: BP 95/67; PULSE 103; RESP 16; TEMP 98.4; O2SAT 95
[2016-04-03] MEDS: REMOVE OLD PATCH TD SCH (22:56)
[2016-04-04] VITALS (7 sets, daily range): BP systolic 77–130; BP diastolic 56–70; PULSE 103–126; RESP 17–20; TEMP 96.3–98.1; O2SAT 91–99
[2016-04-04] MEDS: FUROSEMIDE 20 MG/2 ML VIAL IV PUSH SCH ×2 (00:49→10:00)
[2016-04-04] MEDS: MORPHINE SULFATE 4 MG/ML INJ IV PUSH PRN (03:12)
[2016-04-04] MEDS: VANCOMYCIN INJ 1,250 MG in SODIUM CHLOR 0.9% 250 ML INJ 250 ML IV SCH ×2 (03:14→14:06)
[2016-04-04] MEDS: DIPHENHY/LIDO/MAG/ALUM MOUTHWASH (Adult/Peds) 60 ML BTL SWISH-SWAL SCH ×4 (06:07→22:15)
[2016-04-04] MEDS: CYCLOBENZAPRINE HCL 10 MG TAB PO SCH ×3 (06:09→22:12)
[2016-04-04] MEDS: cefTRIAXone INJ 2,000 MG in SODIUM CHLORIDE 0.9% INJ 100 ML IV SCH ×2 (06:10→18:10)
[2016-04-04] MEDS: ACETAMINOPHEN/HYDROcodone 325 MG/10 MG TAB PO PRN ×3 (06:16→18:10)
[2016-04-04] MEDS: MAGNESIUM OXIDE 400 MG TAB PO SCH (09:19)
[2016-04-04] MEDS: CALCIUM CARBONATE 500 MG CHEWABLE TAB CHEW SCH ×2 (09:19→22:14)
[2016-04-04] MEDS: FOLIC ACID 1 MG TAB PO SCH (09:19)
[2016-04-04] MEDS: LIDOCAINE HCL 5% PATCH TD SCH (09:23)
[2016-04-04] MEDS: SODIUM CHLORIDE 0.9% FLUSH 5 ML FLUSH FLUSH SCH ×2 (10:41→22:15)
[2016-04-04] MEDS: DRONABINOL 2.5 MG CAP PO SCH ×2 (10:41→16:10)
[2016-04-04] MEDS: ALBUMIN HUMAN 25% 25 GM/100 ML BAGP IV SCH ×2 (10:42→22:14)
[2016-04-04 11:34] LABS: BICARBONATE 20.3 MEQ/L (21.0-32.0); MAGNESIUM 1.5 MG/DL (1.5-2.5); POTASSIUM 4.4 MEQ/L (3.5-5.1)
[2016-04-04 11:47] LABS: CALCIUM-PROTEIN CORRECTED 8.3 MG/DL (8.5-10.1)
--- NOTE | 2016-04-04 13:21 | PD.ONC.PN ---
Subjective Subjective Remarks Afebrile overnight. Patient's mother at bedside. Patient feeling well. He states he is still deciding on hospice. He states he wants to fully examine all of his possibilities before he makes a decision. Objective Data Date Time Temp Pulse Resp B/P Pulse Ox O2 Delivery O2 Flow Rate FiO2 04/04/16 13:13 98.1 110 20 77/56 99 04/04/16 10:30 109 84/58 04/04/16 09:19 Nasal Cannula 2.00 21 04/04/16 07:58 96.8 108 20 82/68 97 04/04/16 07:39 94 Nasal Cannula 2.00 04/04/16 03:00 103 101/70 04/03/16 22:30 95 Room Air 04/03/16 20:00 98.4 103 16 95/67 95 04/03/16 16:00 97.4 104 18 86/59 92 04/03/16 13:35 Room Air 1.00 Nasal Cannula 04/04/16 04/04/16 04/04/16 07:00 15:00 23:00 Intake Total 500 ml Balance 500 ml Result Diagram: 04/01/16 0645 04/04/16 1020 Laboratory Results Laboratory Tests Test 04/04/16 10:20 Sodium Level 132 MEQ/L Potassium Level 4.4 MEQ/L Chloride Level 102 MEQ/L Carbon Dioxide Level 20.3 MEQ/L Anion Gap 10 MEQ/L Blood Urea Nitrogen 20 MG/DL Creatinine 0.55 MG/DL Estimat Glomerular Filtration 155 ML/MIN Rate Random Glucose 79 MG/DL Calcium Level 7.2 MG/DL Protein Corrected Calcium 8.3 MG/DL Magnesium Level 1.5 MG/DL Total Protein 5.0 GM/DL Administered Medications Medications (Trade) Dose Ordered Sig/Maude Route PRN Reason Start Time Stop Time Status Last Admin Dose Admin Ceftriaxone Sodium/Sodium Chloride (Rocephin Inj/NS Inj) 100 ml @ 200 mls/hr Q12H IV 03/26/16 06:00 04/04/16 06:10 IV Flush (NS Flush) 2 ml BID FLUSH 03/25/16 21:00 04/04/16 10:41 Ondansetron HCl (Zofran Inj) 4 mg Q6H PRN IVP NAUSEA OR VOMITING 03/25/16 18:30 04/03/16 22:52 Lidocaine/ Diphenhydr/Alum/ Mg/Simeth (Magic Mouthwash Pediatric/Adult Liq) 5 ml ACHS SWISH-SWAL 03/26/16 11:00 04/04/16 10:43 Morphine Sulfate (Morphine Inj) 2 mg Q4HR PRN IV PUSH breakthrough pain 03/26/16 17:45 04/04/16 03:12 Cyclobenzaprine HCl (Flexeril) 5 mg Q8HR PO 03/28/16 14:00 04/04/16 06:09 Calcium Carbonate (Tums Chew) 500 mg Q12HR CHEW 03/29/16 09:00 04/04/16 09:19 Magnesium Oxide (Mag-Ox) 400 mg DAILY PO 03/29/16 09:00 04/04/16 09:19 Lidocaine HCl (Lidoderm 5% Patch.12 Hr) 1 patch DAILY TD 03/29/16 09:00 04/04/16 09:23 Miscellaneous Information 1 HS TD 03/29/16 21:00 04/03/16 22:56 Albumin Human (Albumin 25% Inj) 50 gm Q12H IV 03/29/16 10:00 04/04/16 10:42 Dronabinol (Marinol) 2.5 mg BID@11,16 PO 03/29/16 16:00 04/04/16 10:41 Acetaminophen/ Hydrocodone Bitart ([place] 10-325 Mg) 1 tab Q6H PRN PO pain 1-10 03/31/16 11:15 04/04/16 12:00 Folic Acid 1 mg 1 mg DAILY PO 03/31/16 11:30 04/04/16 09:19 Vancomycin HCl/ Sodium Chloride (Vancomycin Inj/ NS 250 ml Inj) 262.5 ml @ 250 mls/hr Q12H IV 03/31/16 15:00 04/04/16 03:14 Furosemide (Lasix Inj) 10 mg BID@10,22 IV PUSH 04/03/16 22:00 04/04/16 00:49 Objective Remarks GENERAL: Cachetic male, lying in bed, mother at bedside. SKIN: Warm and dry. HEAD: Normocephalic. EYES: No injection or drainage. NECK: Supple, trachea midline. CARDIOVASCULAR: Regular rate and rhythm RESPIRATORY: Breath sounds equal bilaterally. No accessory muscle use. GASTROINTESTINAL: abdomen distended with ascites. EXTREMITIES: No cyanosis NEUROLOGICAL: awake, alert and oriented. He is weak but otherwise without focal deficit. Assessment/Plan Problem List: (1) Mesothelioma, malignant Status: Acute Plan: 04/04/16: patient still pondering his options. He is clear for discharge home. --palliative care following. patient is leaning toward hospice. on 04/01/16 patient had meeting with hospice but has not enrolled with hospice yet --CT chest -- no mets --EGD showed ulcer, gastritis, esophagitis. --Colonoscopy was a poor prep but no obvious mass noted. --He left against medical advice the last time he was here. He now re- presented with increased shortness of breath and tense ascites. --had another paracentesis and removal of 16 liters of clear yellow fluid 03/26. --03/31/16 paracentesis with removal >18L. The pt was told of his diagnosis of malignant mesothelioma. extensive discussion with patient and his father at the bedside. treatment options reviewed. patient stated that he is always against chemotherapy and he does not think he would consider chemotherapy. He would like to pursue alternative medicine. At this time, he is leaning towards hospice for comfort care but he wants more time to think about it. (2) Malnutrition Status: Acute Plan: --continue nutritional support Assessment 55y/o male with malignant mesothelioma (biphasic type) diagnosed in 02/2016. --has had recurrent ascites since September 2015. Plan 1. clear for discharge 2. continue supportive care. Attending Statement The exam, history, and the medical decision-making described in the above note were completed with the assistance of the mid-level provider. I reviewed and agree with the findings presented. I attest that I had a [id number] encounter with the patient on the same day, and personally performed and documented my assessment and findings in the medical record. Back pain is controlled. Abdomen is still soft. He has not decided on hospice yet. He is sure he does not want chemotherapy. He can be d/c home with hospice. Chiquita Bahena Apr 04, 2016 13:20 Kane Calix MD Apr 04, 2016 15:49
--- NOTE | 2016-04-04 17:09 | HHI.PR ---
Subjective Remarks no complains of pain abdomina, nausea or vomiting chronic generalized aches Objective Vitals Vital Signs Date Time Temp Pulse Resp B/P Pulse Ox O2 Delivery O2 Flow Rate FiO2 04/04/16 15:43 97.3 126 20 82/59 91 04/04/16 13:13 98.1 110 20 77/56 99 04/04/16 10:30 109 84/58 04/04/16 09:19 Nasal Cannula 2.00 21 04/04/16 07:58 96.8 108 20 82/68 97 04/04/16 07:39 94 Nasal Cannula 2.00 04/04/16 03:00 103 101/70 04/03/16 22:30 95 Room Air 04/03/16 20:00 98.4 103 16 95/67 95 I/O 04/03/16 04/03/16 04/03/16 04/04/16 04/04/16 04/04/16 07:00 15:00 23:00 07:00 15:00 23:00 Intake Total 1910 ml 480 ml 480 ml 500 ml 240 ml 450 ml Output Total 150 ml 350 ml 300 ml 250 ml Balance 1760 ml 130 ml 180 ml 500 ml -10 ml 450 ml Intake Oral 240 ml 480 ml 480 ml 240 ml 240 ml IV Total 1670 ml 260 ml 450 ml Output Urine Total 150 ml 350 ml 300 ml 250 ml # Bowel Movements 0 Result Diagram: 04/01/16 0645 04/04/16 1020 Imaging Last Impressions Cyst Biopsy Asp-Paracentesis US 03/31/16 0000 Signed Impressions: Service Date/Time: Thursday, March 31, 2016 19:53 - CONCLUSION: Uncomplicated ultrasound guided paracentesis. Andres Copeland Jr., MD Abdomen Biopsy CT 03/27/16 0000 Signed Impressions: Service Date/Time: February 12:02 - CONCLUSION: Uncomplicated CT guided biopsy of a focal soft tissue density on the right peritoneum.. Alonso Oneil MD Chest X-Ray 03/25/16 1718 Signed Impressions: Service Date/Time: Friday, March 25, 2016 17:34 - CONCLUSION: Almost complete resolution of the previously seen the right lung base consolidation. Gabrielle Tipton MD Objective Remarks awake and alert, oriented x 3 cachectic looking anicteric decrease breath sounds left LF abdomen-+ fluid wave extremities no edema Procedures -S/P paracentesis -CT guided biopsy of omentum by IR 03/28/16. A/P Problem List: (1) Severe sepsis ICD Code: A41.9 Status: Acute (2) Hyponatremia ICD Code: E87.1 Status: Acute (3) Hyperkalemia ICD Code: E87.5 Status: Resolved (4) Increased anion gap metabolic acidosis ICD Code: E87.2 Status: Acute (5) CHELY (acute kidney injury) ICD Code: N17.9 Status: Resolved (6) Thrombocytosis ICD Code: D47.3 Status: Acute (7) Hypoglycemia ICD Code: E16.2 Status: Acute (8) Severe protein-calorie malnutrition ICD Code: E43 Status: Acute (9) Hematemesis ICD Code: K92.0 Status: Acute Assessment and Plan This is a 55-year-old male with past medical history of ascites for which he has gotten multiple ultrasound-guided paracentesis with drainage of large amount of ascites for about the past 6 months. He is here for worsening ascites and shortness of breath and had significant hypotension in the ER with a blood pressure of 77/52 requiring IV albumin and fluids. He is also tachycardic and WBC is elevated at 18.8 with neutrophilia. Lactic acid elevated at 3.1. Potassium 6.6 on admission and sodium is low at 126. Anion gap is elevated at 16 and he shows acute kidney injury with BUN of 71, creatinine 1.95, estimated GFR 36. Hypoglycemia noted with glucose initially 58 and 48 on repeat BMP. Patient BNP 1846. He is notably cachectic with bitemporal wasting and has a low albumin 1.9. Severe sepsis - UTI vs SBP Metabolic acidosis Hypotension- patient with no effective circulating volume due to 3rd spacing Buttocks with pressure wounds, present on admission. Stage 2 pressure injury to sacrum that is resolving. Also stage 4 left ischium pressure injury. Has right upper thigh between hip and ischium skin loss not pressure related. Consult wound care nurse, following. Cleanse wounds with NS and apply foam dressings to change every 3 days or PRN for saturation or dislodgement - Vancomycin IV with pharmacy consult for assistance with therapeutic monitoring and dosing - Rocephin 2 g IV every 12 hours - Blood cultures 2 and urine culture pending; follow results - continuous cardiac telemetry - Start Albumin IV bid 03/26 - Received albumin 25 g IV once 03/27, - Increase albumin to 50 g bid IV. Lasix 10 mg IV after each Albumin infusion for 1-2 days more then DC. - Patient is not eating much. - C. difficile toxin negative - Lactic acid sepsis protocol Recurrent Ascites - S/P Ultrasound-guided abdominal paracentesis with removal if 16L -S/P LP and CT guided biopsy of omentum by IR 03/28/16, pathology shows mesenteric mesothelioma MRI reviewed shows nodularity of the peritoneum with possible omental thickening. CA 15-3 and CA -125 elevated but non specific CT chest no evidence of metastatic disease EGD recent last admission showed ulcer gastritis, esophagitis Colonoscopy recent last admission poor prep however no obvious mass Note patient left AMA last admission and was a plan for biopsy. Patient with anorexia, severe protein beverley malnutrition likely has underlying malignancy. -marinol for anorexia GI consulted will hold on any intervention, doesn't plan for colonoscopy Hem/onc consulted Dr Calix appreciate recommendations. S/P biopsy by IR CT abdomen of the omentum, with mesenteric mesothelioma Patient wants time to think if he will pursue medical treatment vs hospice. Reconsult IR for therapeutic paracentesis in am 04/05 Clifton Villalba MD Apr 04, 2016 17:09
[2016-04-04] MEDS: ONDANSETRON HCL 4 MG/2 ML VIAL IVP PRN (22:09)
[2016-04-04] MEDS: REMOVE OLD PATCH TD SCH (22:19)
[2016-04-05] VITALS (16 sets, daily range): BP systolic 77–88; BP diastolic 56–90; PULSE 93–113; RESP 16–20; TEMP 96.2–97.8; O2SAT 96–100
[2016-04-05] MEDS: ACETAMINOPHEN/HYDROcodone 325 MG/10 MG TAB PO PRN ×3 (01:30→21:07)
[2016-04-05] MEDS: VANCOMYCIN INJ 1,250 MG in SODIUM CHLOR 0.9% 250 ML INJ 250 ML IV SCH (03:34)
[2016-04-05] MEDS: CYCLOBENZAPRINE HCL 10 MG TAB PO SCH ×3 (05:51→21:07)
[2016-04-05] MEDS: cefTRIAXone INJ 2,000 MG in SODIUM CHLORIDE 0.9% INJ 100 ML IV SCH ×2 (05:52→18:01)
[2016-04-05] MEDS: DIPHENHY/LIDO/MAG/ALUM MOUTHWASH (Adult/Peds) 60 ML BTL SWISH-SWAL SCH ×4 (05:57→21:02)
[2016-04-05] MEDS: CALCIUM CARBONATE 500 MG CHEWABLE TAB CHEW SCH ×2 (09:00→21:02)
[2016-04-05] MEDS: LIDOCAINE HCL 5% PATCH TD SCH (09:49)
[2016-04-05] MEDS: SODIUM CHLORIDE 0.9% FLUSH 5 ML FLUSH FLUSH SCH ×2 (09:52→21:02)
[2016-04-05] MEDS: ALBUMIN HUMAN 25% 25 GM/100 ML BAGP IV SCH ×2 (10:00→20:20)
[2016-04-05] MEDS: DRONABINOL 2.5 MG CAP PO SCH ×2 (11:00→15:33)
[2016-04-05] MEDS ORDERED: ALBUMIN HUMAN 25% 75 GM IV ONE ×2 (13:45→14:00)
[2016-04-05] MEDS: FOLIC ACID 1 MG TAB PO SCH (14:16)
[2016-04-05] MEDS: MAGNESIUM OXIDE 400 MG TAB PO SCH (14:16)
--- NOTE | 2016-04-05 14:29 | RADRPT ---
EXAM DATE/TIME: 04/05/2016 10:50 [facility] COMPARISON: US GUIDED ABD PARACENTESIS, March 31, 2016, 19:53. INDICATIONS : Ascites. MEDICAL HISTORY : Ascites. Renal failure, acute. Malignant mesothelioma. Metabolic acidosis. Dyspnea. Abdominal pain. SURGICAL HISTORY : Mutliple thoracentesis. Multiple paracentesis. ENCOUNTER: [facility] ACUITY: 4-6 days PAIN SCORE: 7/10 LOCATION: Right lower quadrant FLUID: Total volume of 12,700 cc of clear, yellow fluid was removed. Fluid was discarded. Paracentesis was therapeutic only. Post procedure scanning reveals no hematoma or other complication. TECHNIQUE: 1. Ultrasound guidance for abdominal paracentesis. 2. Paracentesis. The risks, benefits, and alternatives to ultrasound guided paracentesis were explained to the patient in detail including the risk of bleeding and infection. Written and verbal informed consent was obt ained. With the patient on the ultrasound table, ultrasound imaging was used to select the most appropriate approach for paracentesis. Overlying skin was prepped and draped in the usual sterile fashion and wi th a local anesthetic, a dermatotomy was made with an 11 blade scalpel. A 6 [place] [id number] ca theter was introduced into the peritoneal cavity and fluid was collected. The patient tolerated the procedure well and left the ultrasound suite in stable condition. CONCLUSION: Uncomplicated ultrasound guided paracentesis. Patient received albumin per protocol. Kaleb White MD FACR on April 05, 2016 at 14:28 Board Certified Radiologist. This report was verified electronically.
[2016-04-05] MEDS: ONDANSETRON HCL 4 MG/2 ML VIAL IVP PRN (15:31)
--- NOTE | 2016-04-05 16:04 | HHI.PR ---
Subjective Remarks feels great- tolerated paracentesis 12,700 out Objective Vitals Vital Signs Date Time Temp Pulse Resp B/P Pulse Ox O2 Delivery O2 Flow Rate FiO2 04/05/16 15:28 105 80/60 04/05/16 13:35 108 20 82/60 98 04/05/16 13:20 108 20 83/65 97 04/05/16 13:15 110 20 77/56 97 04/05/16 13:00 109 20 80/62 97 04/05/16 12:45 107 20 87/64 97 04/05/16 12:30 109 20 88/65 96 04/05/16 12:15 111 20 82/61 98 04/05/16 12:00 111 20 80/60 97 04/05/16 11:45 108 20 85/64 96 04/05/16 11:20 97.6 113 20 86/90 98 04/05/16 09:50 96 Room Air 04/05/16 08:00 96.2 106 16 81/67 96 04/05/16 04:00 97.7 101 17 80/58 96 04/05/16 00:00 97.1 103 18 81/59 96 04/04/16 22:12 96 Room Air 04/04/16 21:35 Nasal Cannula 2.00 04/04/16 20:00 80/68 I/O 04/04/16 04/04/16 04/04/16 04/05/16 04/05/16 04/05/16 07:00 15:00 23:00 07:00 15:00 23:00 Intake Total 500 ml 240 ml 510 ml Output Total 250 ml 100 ml Balance 500 ml -10 ml 410 ml Intake Oral 240 ml 240 ml 60 ml IV Total 260 ml 450 ml Output Urine Total 250 ml 100 ml # Bowel Movements 0 0 Result Diagram: 04/01/16 0645 04/05/16 0630 Imaging Last Impressions Cyst Biopsy Asp-Paracentesis US 04/05/16 0800 Signed Impressions: Service Date/Time: Tuesday, April 05, 2016 10:50 - CONCLUSION: Uncomplicated ultrasound guided paracentesis. Patient received albumin per protocol. Kaleb White MD FACR Abdomen Biopsy CT 03/27/16 0000 Signed Impressions: Service Date/Time: February 12:02 - CONCLUSION: Uncomplicated CT guided biopsy of a focal soft tissue density on the right peritoneum.. Alonso Oneil MD Chest X-Ray 03/25/16 1718 Signed Impressions: Service Date/Time: Friday, March 25, 2016 17:34 - CONCLUSION: Almost complete resolution of the previously seen the right lung base consolidation. Gabrielle Tipton MD Objective Remarks awake and alert, oriented x 3 cachectic looking anicteric decrease breath sounds left LF abdomen-- flat, soft, good bowel sounds extremities no edema Procedures -paracentesis 03/25, 04/05 -CT guided biopsy of omentum by IR 03/28/16. A/P Problem List: (1) Severe sepsis ICD Code: A41.9 Status: Acute (2) Hyponatremia ICD Code: E87.1 Status: Acute (3) Hyperkalemia ICD Code: E87.5 Status: Resolved (4) Increased anion gap metabolic acidosis ICD Code: E87.2 Status: Acute (5) CHELY (acute kidney injury) ICD Code: N17.9 Status: Resolved (6) Thrombocytosis ICD Code: D47.3 Status: Acute (7) Hypoglycemia ICD Code: E16.2 Status: Acute (8) Severe protein-calorie malnutrition ICD Code: E43 Status: Acute (9) Hematemesis ICD Code: K92.0 Status: Acute Assessment and Plan This is a 55-year-old male with past medical history of ascites for which he has gotten multiple ultrasound-guided paracentesis with drainage of large amount of ascites for about the past 6 months. He is here for worsening ascites and shortness of breath and had significant hypotension in the ER with a blood pressure of 77/52 requiring IV albumin and fluids. He is also tachycardic and WBC is elevated at 18.8 with neutrophilia. Lactic acid elevated at 3.1. Potassium 6.6 on admission and sodium is low at 126. Anion gap is elevated at 16 and he shows acute kidney injury with BUN of 71, creatinine 1.95, estimated GFR 36. Hypoglycemia noted with glucose initially 58 and 48 on repeat BMP. Patient BNP 1846. He is notably cachectic with bitemporal wasting and has a low albumin 1.9. Severe sepsis - UTI vs SBP Metabolic acidosis Hypotension- patient with no effective circulating volume due to 3rd spacing Buttocks with pressure wounds, present on admission. Stage 2 pressure injury to sacrum that is resolving. Also stage 4 left ischium pressure injury. Has right upper thigh between hip and ischium skin loss not pressure related. Consult wound care nurse, following. Cleanse wounds with NS and apply foam dressings to change every 3 days or PRN for saturation or dislodgement - Vancomycin IV with pharmacy consult for assistance with therapeutic monitoring and dosing - Rocephin 2 g IV every 12 hours - Blood cultures 2 and urine culture pending; follow results - continuous cardiac telemetry - Start Albumin IV bid 03/26 - Received albumin 25 g IV once 03/27, - Increase albumin to 50 g bid IV. - Patient is not eating much. - C. difficile toxin negative - Lactic acid sepsis protocol Recurrent Ascites - S/P Ultrasound-guided abdominal paracentesis with removal if 16L, repeat paracentesisi 04/05 12,700 cc out -S/P LP and CT guided biopsy of omentum by IR 03/28/16, pathology shows mesenteric mesothelioma MRI reviewed shows nodularity of the peritoneum with possible omental thickening. CA 15-3 and CA -125 elevated but [address] specific CT chest no evidence of metastatic disease EGD recent last admission showed ulcer gastritis, esophagitis Colonoscopy recent last admission poor prep however no obvious mass Note patient left AMA last admission and was a plan for biopsy. Patient with anorexia, severe protein beverley malnutrition likely has underlying malignancy. -marinol for anorexia GI consulted will hold on any intervention, doesn't plan for colonoscopy Hem/onc consulted Dr Calix appreciate recommendations. S/P biopsy by IR CT abdomen of the omentum, with mesenteric mesothelioma Patient wants time to think if he will pursue medical treatment vs hospice. Clifton Villalba MD Apr 05, 2016 16:04
--- NOTE | 2016-04-05 16:26 | PD.ONC.PN ---
Subjective Subjective Remarks Abdomen more distended, pain is controlled. Objective Data Date Time Temp Pulse Resp B/P Pulse Ox O2 Delivery O2 Flow Rate FiO2 04/05/16 15:28 105 80/60 04/05/16 13:35 108 20 82/60 98 04/05/16 13:20 108 20 83/65 97 04/05/16 13:15 110 20 77/56 97 04/05/16 13:00 109 20 80/62 97 04/05/16 12:45 107 20 87/64 97 04/05/16 12:30 109 20 88/65 96 04/05/16 12:15 111 20 82/61 98 04/05/16 12:00 111 20 80/60 97 04/05/16 11:45 108 20 85/64 96 04/05/16 11:20 97.6 113 20 86/90 98 04/05/16 09:50 96 Room Air 04/05/16 08:00 96.2 106 16 81/67 96 04/05/16 04:00 97.7 101 17 80/58 96 04/05/16 00:00 97.1 103 18 81/59 96 04/04/16 22:12 96 Room Air 04/04/16 21:35 Nasal Cannula 2.00 04/04/16 20:00 80/68 Result Diagram: 04/01/16 0645 04/05/16 0630 Laboratory Results Laboratory Tests Test 04/05/16 06:30 Creatinine 0.52 MG/DL Estimat Glomerular Filtration 166 ML/MIN Rate Imaging Studies Last 24 hours Impressions Cyst Biopsy Asp-Paracentesis US 04/05/16 0800 Signed Impressions: Service Date/Time: Tuesday, April 05, 2016 10:50 - CONCLUSION: Uncomplicated ultrasound guided paracentesis. Patient received albumin per protocol. Kaleb White MD FACR Administered Medications Medications (Trade) Dose Ordered Sig/Maude Route PRN Reason Start Time Stop Time Status Last Admin Dose Admin Ceftriaxone Sodium/Sodium Chloride (Rocephin Inj/NS Inj) 100 ml @ 200 mls/hr Q12H IV 03/26/16 06:00 04/05/16 05:52 IV Flush (NS Flush) 2 ml BID FLUSH 03/25/16 21:00 04/05/16 09:52 Ondansetron HCl (Zofran Inj) 4 mg Q6H PRN IVP NAUSEA OR VOMITING 03/25/16 18:30 04/05/16 15:31 Lidocaine/ Diphenhydr/Alum/ Mg/Simeth (Magic Mouthwash Pediatric/Adult Liq) 5 ml ACHS SWISH-SWAL 03/26/16 11:00 04/04/16 16:10 Cyclobenzaprine HCl (Flexeril) 5 mg Q8HR PO 03/28/16 14:00 04/05/16 15:33 Calcium Carbonate (Tums Chew) 500 mg Q12HR CHEW 03/29/16 09:00 04/04/16 22:14 Magnesium Oxide (Mag-Ox) 400 mg DAILY PO 03/29/16 09:00 04/05/16 14:16 Lidocaine HCl (Lidoderm 5% Patch.12 Hr) 1 patch DAILY TD 03/29/16 09:00 04/05/16 09:49 Miscellaneous Information 1 HS TD 03/29/16 21:00 04/04/16 22:19 Albumin Human (Albumin 25% Inj) 50 gm Q12H IV 03/29/16 10:00 04/04/16 22:14 Dronabinol (Marinol) 2.5 mg BID@11,16 PO 03/29/16 16:00 04/05/16 15:33 Acetaminophen/ Hydrocodone Bitart ([place] 10-325 Mg) 1 tab Q6H PRN PO pain 1-10 03/31/16 11:15 04/05/16 14:13 Folic Acid (Folate) 1 mg DAILY PO 03/31/16 11:30 04/05/16 14:16 Objective Remarks GENERAL: Cachectic and weak. SKIN: Warm and dry. HEAD: Normocephalic. EYES: No scleral icterus. No injection or drainage. NECK: Supple, trachea midline. No JVD or lymphadenopathy. LYMPHATIC: No adenopathy. CARDIOVASCULAR: Regular rate and rhythm without murmurs. RESPIRATORY: Breath sounds equal bilaterally. No accessory muscle use. GASTROINTESTINAL: Abdomen soft, more distended, +fluid wave EXTREMITIES: No cyanosis, or edema. MUSCULOSKELETAL: Adequate muscle tone. NEUROLOGICAL: No obvious focal deficit. Awake, alert, and oriented x3. PSYCHIATRIC: Appropriate mood and affect; insight and judgment normal. Assessment/Plan Problem List: (1) Mesothelioma, malignant Status: Acute Plan: 04/05/16: patient still pondering his options. He is clear for discharge home. He wants hospice care and does nto want to make a decision yet. Abdomen more distended. He is going to have another paracentesis. --palliative care following. patient is leaning toward hospice. on 04/01/16 patient had meeting with hospice but has not enrolled with hospice yet --CT chest -- no mets --EGD showed ulcer, gastritis, esophagitis. --Colonoscopy was a poor prep but no obvious mass noted. --He left against medical advice the last time he was here. He now re- presented with increased shortness of breath and tense ascites. --had another paracentesis and removal of 16 liters of clear yellow fluid 03/26. --03/31/16 paracentesis with removal >18L. The pt was told of his diagnosis of malignant mesothelioma. extensive discussion with patient and his father at the bedside. treatment options reviewed. patient stated that he is always against chemotherapy and he does not think he would consider chemotherapy. He would like to pursue alternative medicine. At this time, he is leaning towards hospice for comfort care but he wants more time to think about it. (2) Malnutrition Status: Acute Plan: --continue nutritional support Assessment 55y/o male with malignant mesothelioma (biphasic type) diagnosed in 02/2016. --has had recurrent ascites since September 2015. Plan 1. Can be discharge from oncology standpoint 2. continue supportive care. Kane Calix MD Apr 05, 2016 16:26
[2016-04-05] MEDS ORDERED: PROCHLORPERAZINE INJ 10 MG/2 ML VIAL IM PRN (21:00)
[2016-04-05] MEDS: REMOVE OLD PATCH TD SCH (21:00)
[2016-04-06 04:00] VITALS: BP 80/58; PULSE 100; RESP 17; TEMP 97.7; O2SAT 97
[2016-04-06] MEDS: DIPHENHY/LIDO/MAG/ALUM MOUTHWASH (Adult/Peds) 60 ML BTL SWISH-SWAL SCH ×4 (06:20→20:50)
[2016-04-06] MEDS: CYCLOBENZAPRINE HCL 10 MG TAB PO SCH ×3 (06:20→20:56)
[2016-04-06] MEDS: ACETAMINOPHEN/HYDROcodone 325 MG/10 MG TAB PO PRN ×3 (06:20→18:30)
[2016-04-06] MEDS: cefTRIAXone INJ 2,000 MG in SODIUM CHLORIDE 0.9% INJ 100 ML IV SCH (06:20)
[2016-04-06 08:00] VITALS: BP 76/67; PULSE 112; RESP 18; TEMP 95.4; O2SAT 98
[2016-04-06] MEDS: CALCIUM CARBONATE 500 MG CHEWABLE TAB CHEW SCH ×2 (08:39→20:50)
[2016-04-06] MEDS: LIDOCAINE HCL 5% PATCH TD SCH (08:39)
[2016-04-06] MEDS: FOLIC ACID 1 MG TAB PO SCH (08:39)
[2016-04-06] MEDS: MAGNESIUM OXIDE 400 MG TAB PO SCH (08:39)
[2016-04-06] MEDS: SODIUM CHLORIDE 0.9% FLUSH 5 ML FLUSH FLUSH SCH ×2 (08:40→20:51)
--- NOTE | 2016-04-06 08:43 | HHI.PR ---
Subjective Remarks feeling better paracentesis done 04/05- L out d/w DC planning with CM Objective Vitals Vital Signs Date Time Temp Pulse Resp B/P Pulse Ox O2 Delivery O2 Flow Rate FiO2 04/06/16 04:00 97.7 100 17 80/58 97 04/05/16 22:31 18 04/05/16 21:02 Room Air 2.00 21 04/05/16 20:00 97.8 93 16 83/59 100 04/05/16 17:06 94 86/63 97 04/05/16 15:28 105 80/60 04/05/16 13:35 108 20 82/60 98 04/05/16 13:20 108 20 83/65 97 04/05/16 13:15 110 20 77/56 97 04/05/16 13:00 109 20 80/62 97 04/05/16 12:45 107 20 87/64 97 04/05/16 12:30 109 20 88/65 96 04/05/16 12:15 111 20 82/61 98 04/05/16 12:00 111 20 80/60 97 04/05/16 11:45 108 20 85/64 96 04/05/16 11:20 97.6 113 20 86/90 98 04/05/16 09:50 96 Room Air I/O 04/05/16 04/05/16 04/05/16 04/06/16 04/06/16 04/06/16 07:00 15:00 23:00 07:00 15:00 23:00 Intake Total 960 ml 720 ml 480 ml Output Total 700 ml 150 ml Balance 960 ml 20 ml 330 ml Intake Oral 960 ml 720 ml 480 ml Output Urine Total 700 ml 150 ml Result Diagram: 04/05/16 0630 Imaging Last Impressions Cyst Biopsy Asp-Paracentesis US 04/05/16 0800 Signed Impressions: Service Date/Time: Tuesday, April 05, 2016 10:50 - CONCLUSION: Uncomplicated ultrasound guided paracentesis. Patient received albumin per protocol. Kaleb White MD FACR Abdomen Biopsy CT 03/27/16 0000 Signed Impressions: Service Date/Time: February 12:02 - CONCLUSION: Uncomplicated CT guided biopsy of a focal soft tissue density on the right peritoneum.. Alonso Oneil MD Chest X-Ray 03/25/16 0568 Signed Impressions: Service Date/Time: Friday, March 25, 2016 17:34 - CONCLUSION: Almost complete resolution of the previously seen the right lung base consolidation. Gabrielle Tipton MD Objective Remarks awake and alert, oriented x 3 cachectic looking anicteric no rales, no wheezes abdomen-- flat, soft, good bowel sounds extremities no edema Procedures -repeated paracentesis 03/25, 04/05 -CT guided biopsy of omentum by IR 03/28/16. Assessment to: Remove Date of Removal: Apr 06, 2016 A/P Problem List: (1) Severe sepsis ICD Code: A41.9 Status: Acute (2) Hyponatremia ICD Code: E87.1 Status: Acute (3) Hyperkalemia ICD Code: E87.5 Status: Resolved (4) Increased anion gap metabolic acidosis ICD Code: E87.2 Status: Acute (5) CHELY (acute kidney injury) ICD Code: N17.9 Status: Resolved (6) Thrombocytosis ICD Code: D47.3 Status: Acute (7) Hypoglycemia ICD Code: E16.2 Status: Acute (8) Severe protein-calorie malnutrition ICD Code: E43 Status: Acute (9) Hematemesis ICD Code: K92.0 Status: Acute Assessment and Plan This is a 55-year-old male with past medical history of ascites for which he has gotten multiple ultrasound-guided paracentesis with drainage of large amount of ascites for about the past 6 months. He is here for worsening ascites and shortness of breath and had significant hypotension in the ER with a blood pressure of 77/52 requiring IV albumin and fluids. He is also tachycardic and WBC is elevated at 18.8 with neutrophilia. Lactic acid elevated at 3.1. Potassium 6.6 on admission and sodium is low at 126. Anion gap is elevated at 16 and he shows acute kidney injury with BUN of 71, creatinine 1.95, estimated GFR 36. Hypoglycemia noted with glucose initially 58 and 48 on repeat BMP. Patient BNP 1846. He is notably cachectic with bitemporal wasting and has a low albumin 1.9. Severe sepsis - UTI vs SBP S/P course of Ceftriaxone 04/05 Metabolic acidosis resolved Hypotension- patient with no effective circulating volume due to 3rd spacing Buttocks with pressure wounds, present on admission. Stage 2 pressure injury to sacrum that is resolving. Also stage 4 left ischium pressure injury. Has right upper thigh between hip and ischium skin loss not pressure related. Consult wound care nurse, following. Cleanse wounds with NS and apply foam dressings to change every 3 days or PRN for saturation or dislodgement - Blood cultures 2 and urine culture pending; follow results - Lactic acid sepsis protocol Recurrent Ascites - S/P Ultrasound-guided abdominal paracentesis with removal if 16L, repeat paracentesis 04/05 12,700 cc out Mesenteric mesothelioma MRI reviewed shows nodularity of the peritoneum with possible omental thickening. CA 15-3 and CA -125 elevated but [address] specific CT chest no evidence of metastatic disease EGD recent last admission showed ulcer gastritis, esophagitis Colonoscopy recent last admission poor prep however no obvious mass Note patient left AMA last admission and was a plan for biopsy. Patient with anorexia, severe protein beverley malnutrition likely has underlying malignancy. -marinol for anorexia GI consulted will hold on any intervention, doesn't plan for colonoscopy Hem/onc Dr Calix aff Patient wants time to think if he will pursue medical treatment vs hospice. Will d/w patient with CM- per CM- Hospice care center candidate patient not ready to decide yet- will d/w Dr Calix I d/w him that he can had paracentesis done as OP prn for recurrent ascites- CM will try to find out how this can be arranged PT daily Clifton Villalba MD Apr 06, 2016 08:43 Clifton Villalba MD Apr 06, 2016 08:43
[2016-04-06] MEDS: ALBUMIN HUMAN 25% 25 GM/100 ML BAGP IV SCH ×2 (10:43→20:50)
[2016-04-06] MEDS: DRONABINOL 2.5 MG CAP PO SCH ×2 (10:44→16:07)
[2016-04-06] MEDS: MORPHINE SULFATE 4 MG/ML INJ IV PUSH PRN (10:48)
[2016-04-06 14:00] VITALS: BP 92/74; PULSE 89; RESP 20; TEMP 98.1; O2SAT 95
[2016-04-06 16:00] VITALS: BP 92/74; PULSE 90; RESP 18; TEMP 98; O2SAT 95
[2016-04-06 20:00] VITALS: BP 89/68; PULSE 107; RESP 17; TEMP 97.8; O2SAT 98
[2016-04-06] MEDS: REMOVE OLD PATCH TD SCH (20:51)
[2016-04-07] VITALS: BP 92/74; PULSE 111; RESP 16; TEMP 97; O2SAT 97
[2016-04-07] MEDS: ACETAMINOPHEN/HYDROcodone 325 MG/10 MG TAB PO PRN ×3 (01:15→17:01)
[2016-04-07] MEDS: ONDANSETRON HCL 4 MG/2 ML VIAL IVP PRN ×2 (01:15→07:37)
[2016-04-07 04:00] VITALS: BP 90/69; PULSE 109; RESP 16; TEMP 97.6; O2SAT 98
[2016-04-07] MEDS: CYCLOBENZAPRINE HCL 10 MG TAB PO SCH ×3 (06:00→20:56)
[2016-04-07] MEDS: MORPHINE SULFATE 4 MG/ML INJ IV PUSH PRN ×2 (06:56→13:14)
[2016-04-07] MEDS: DIPHENHY/LIDO/MAG/ALUM MOUTHWASH (Adult/Peds) 60 ML BTL SWISH-SWAL SCH ×4 (07:00→20:56)
[2016-04-07 08:00] VITALS: BP 86/69; PULSE 106; RESP 16; TEMP 95.5; O2SAT 96
[2016-04-07] MEDS: CALCIUM CARBONATE 500 MG CHEWABLE TAB CHEW SCH ×2 (09:24→20:56)
[2016-04-07] MEDS: FOLIC ACID 1 MG TAB PO SCH (09:24)
[2016-04-07] MEDS: TAMSULOSIN HCL 0.4 MG CAP PO SCH (09:25)
[2016-04-07] MEDS: MAGNESIUM OXIDE 400 MG TAB PO SCH (09:25)
[2016-04-07] MEDS: ALBUMIN HUMAN 25% 25 GM/100 ML BAGP IV SCH ×2 (09:25→20:58)
[2016-04-07] MEDS: LIDOCAINE HCL 5% PATCH TD SCH (09:25)
[2016-04-07] MEDS: SODIUM CHLORIDE 0.9% FLUSH 5 ML FLUSH FLUSH SCH ×2 (09:26→20:57)
[2016-04-07] MEDS: DRONABINOL 2.5 MG CAP PO SCH ×2 (10:49→17:01)
[2016-04-07 11:50] VITALS: BP 88/65; PULSE 114; RESP 20; TEMP 98; O2SAT 99
[2016-04-07 16:00] VITALS: BP 86/64; PULSE 117; RESP 20; TEMP 98.5; O2SAT 100
--- NOTE | 2016-04-07 17:01 | HHI.PR ---
Subjective Remarks urinary retention- patient refused to void or too weak to get up - refused to pee [place] reinserted complains of back pain - felt he turned the wrong way- states he had too much to eat and got excited and had a busy day with family visiting deies any nausea or vomiting or shortness of breath Objective Vitals Vital Signs Date Time Temp Pulse Resp B/P Pulse Ox O2 Delivery O2 Flow Rate FiO2 04/07/16 11:50 98.0 114 20 88/65 99 04/07/16 09:25 Nasal Cannula 2.00 21 04/07/16 08:00 95.5 106 16 86/69 96 04/07/16 04:00 97.6 109 16 90/69 98 04/07/16 00:00 97.0 111 16 92/74 97 04/06/16 20:50 97 Nasal Cannula 2.00 04/06/16 20:00 97.8 107 17 89/68 98 I/O 04/06/16 04/06/16 04/06/16 04/07/16 04/07/16 04/07/16 07:00 15:00 23:00 07:00 15:00 23:00 Intake Total 480 ml 360 ml 720 ml 240 ml Output Total 150 ml 600 ml 400 ml Balance 330 ml -240 ml 320 ml 240 ml Intake Oral 480 ml 360 ml 720 ml 240 ml Output Urine Total 150 ml 600 ml 400 ml Bladder Scan Volume Amount 400 ml 492 ml 492 ml Result Diagram: 04/07/16 0554 Imaging Last Impressions Cyst Biopsy Asp-Paracentesis US 04/05/16 0800 Signed Impressions: Service Date/Time: Tuesday, April 05, 2016 10:50 - CONCLUSION: Uncomplicated ultrasound guided paracentesis. Patient received albumin per protocol. Kaleb White MD FACR Abdomen Biopsy CT 03/27/16 0000 Signed Impressions: Service Date/Time: February 12:02 - CONCLUSION: Uncomplicated CT guided biopsy of a focal soft tissue density on the right peritoneum.. Alonso Oneil MD Chest X-Ray 03/25/16 1718 Signed Impressions: Service Date/Time: Friday, March 25, 2016 17:34 - CONCLUSION: Almost complete resolution of the previously seen the right lung base consolidation. K. Crispin Tipton MD Objective Remarks awake and alert, oriented x 3 cachectic looking anicteric no rales, no wheezes abdomen-- distended soft, + fluid wave extremities no edema Procedures -repeated paracentesis 03/25, 04/05 -CT guided biopsy of omentum by IR 03/28/16. Urinary Catheter: Yes Date of Insertion: Apr 06, 2016 A/P Problem List: (1) Severe sepsis ICD Code: A41.9 Status: Acute (2) Hyponatremia ICD Code: E87.1 Status: Acute (3) Hyperkalemia ICD Code: E87.5 Status: Resolved (4) Increased anion gap metabolic acidosis ICD Code: E87.2 Status: Acute (5) CHELY (acute kidney injury) ICD Code: N17.9 Status: Resolved (6) Thrombocytosis ICD Code: D47.3 Status: Acute (7) Hypoglycemia ICD Code: E16.2 Status: Acute (8) Severe protein-calorie malnutrition ICD Code: E43 Status: Acute (9) Hematemesis ICD Code: K92.0 Status: Acute Assessment and Plan This is a 55-year-old male with past medical history of ascites for which he has gotten multiple ultrasound-guided paracentesis with drainage of large amount of ascites for about the past 6 months. He is here for worsening ascites and shortness of breath and had significant hypotension in the ER with a blood pressure of 77/52 requiring IV albumin and fluids. He is also tachycardic and WBC is elevated at 18.8 with neutrophilia. Lactic acid elevated at 3.1. Potassium 6.6 on admission and sodium is low at 126. Anion gap is elevated at 16 and he shows acute kidney injury with BUN of 71, creatinine 1.95, estimated GFR 36. Hypoglycemia noted with glucose initially 58 and 48 on repeat BMP. Patient BNP 1846. He is notably cachectic with bitemporal wasting and has a low albumin 1.9. Severe sepsis - UTI vs SBP S/P course of Ceftriaxone 04/05 Metabolic acidosis resolved Hypotension- patient with no effective circulating volume due to 3rd spacing Buttocks with pressure wounds, present on admission. Stage 2 pressure injury to sacrum that is resolving. Also stage 4 left ischium pressure injury. Has right upper thigh between hip and ischium skin loss not pressure related. Consult wound care nurse, following. Cleanse wounds with NS and apply foam dressings to change every 3 days or PRN for saturation or dislodgement - Blood cultures 2 and urine culture pending; follow results - Lactic acid sepsis protocol Recurrent Ascites - S/P Ultrasound-guided abdominal paracentesis with removal if 16L, repeat paracentesis 04/05 12,700 cc out Mesenteric mesothelioma MRI reviewed shows nodularity of the peritoneum with possible omental thickening. CA 15-3 and CA -125 elevated but [address] CT chest no evidence of metastatic disease EGD recent last admission showed ulcer gastritis, esophagitis Colonoscopy recent last admission poor prep however no obvious mass Note patient left AMA last admission and was a plan for biopsy. Patient with anorexia, severe protein beverley malnutrition likely has underlying malignancy. -marinol for anorexia GI consulted will hold on any intervention, doesn't plan for colonoscopy Hem/onc Dr Calix aff Patient wants time to think if he will pursue medical treatment vs hospice. Back pain- Acute will give prn pain meds consider work up mets Will d/w patient with CM- per CM- Hospice care center candidate patient not ready to decide yet- will d/w Dr Calix I d/w him that he can had paracentesis done as OP prn for recurrent ascites- CM will try to find out how this can be arranged PT daily Clifton Villalba MD Apr 07, 2016 17:01
[2016-04-07] MEDS ORDERED: MORPHINE SULFATE 4 MG/ML INJ IV PUSH PRN ×2 (17:15)
[2016-04-07 20:55] VITALS: BP 84/65; PULSE 118
[2016-04-07] MEDS: REMOVE OLD PATCH TD SCH (20:57)
[2016-04-07] MEDS: HYDROmorphone HCL PF 1 MG/ML VIAL IV PUSH PRN (21:24)
[2016-04-08] VITALS: BP 95/64; PULSE 98; RESP 19; TEMP 97.9; O2SAT 97
[2016-04-08] MEDS: ONDANSETRON HCL 4 MG/2 ML VIAL IVP PRN ×2 (00:10→18:00)
[2016-04-08] MEDS: HYDROmorphone HCL PF 1 MG/ML VIAL IV PUSH PRN ×7 (02:14→21:53)
[2016-04-08 04:00] VITALS: BP 81/64; PULSE 112; RESP 19; TEMP 97.8; O2SAT 93
[2016-04-08] MEDS: DIPHENHY/LIDO/MAG/ALUM MOUTHWASH (Adult/Peds) 60 ML BTL SWISH-SWAL SCH ×4 (05:54→21:00)
[2016-04-08] MEDS: CYCLOBENZAPRINE HCL 10 MG TAB PO SCH ×3 (05:54→20:49)
[2016-04-08 08:00] VITALS: BP 77/56; PULSE 118; RESP 16; TEMP 97.2; O2SAT 92
[2016-04-08] MEDS: SODIUM CHLORIDE 0.9% FLUSH 5 ML FLUSH FLUSH SCH ×2 (09:00→21:53)
--- NOTE | 2016-04-08 09:14 | PD.ONC.PN ---
Subjective Subjective Remarks Afebrile overnight. The patient states he feels like he is leaning towards hospice but would like to speak with them little bit more before he makes a final decision. He states that the pain is decreased after getting Dilaudid. Objective Data Date Time Temp Pulse Resp B/P Pulse Ox O2 Delivery O2 Flow Rate FiO2 04/08/16 08:00 97.2 118 16 77/56 92 04/08/16 04:00 97.8 112 19 81/64 93 04/08/16 00:00 97.9 98 19 95/64 97 04/07/16 20:56 98 Nasal Cannula 2.00 04/07/16 20:55 118 84/65 04/07/16 16:00 98.5 117 20 86/64 100 04/07/16 16:00 98.5 117 20 86/64 100 04/07/16 11:50 98.0 114 20 88/65 99 04/07/16 09:25 Nasal Cannula 2.00 21 Result Diagram: 04/07/16 0554 Administered Medications Medications (Trade) Dose Ordered Sig/Maude Route PRN Reason Start Time Stop Time Status Last Admin Dose Admin IV Flush (NS Flush) 2 ml BID FLUSH 03/25/16 21:00 04/07/16 20:57 Ondansetron HCl (Zofran Inj) 4 mg Q6H PRN IVP NAUSEA OR VOMITING 03/25/16 18:30 04/08/16 00:10 Prochlorperazine (Compazine Supp) 25 mg Q12H PRN NC NAUSEA OR VOMITING 03/25/16 18:30 04/07/16 20:56 Lidocaine/ Diphenhydr/Alum/ Mg/Simeth (Magic Mouthwash Pediatric/Adult Liq) 5 ml ACHS SWISH-SWAL 03/26/16 11:00 04/07/16 17:02 Cyclobenzaprine HCl (Flexeril) 5 mg Q8HR PO 03/28/16 14:00 04/08/16 05:54 Calcium Carbonate (Tums Chew) 500 mg Q12HR CHEW 03/29/16 09:00 04/07/16 20:56 Magnesium Oxide (Mag-Ox) 400 mg DAILY PO 03/29/16 09:00 04/07/16 09:25 Lidocaine HCl (Lidoderm 5% Patch.12 Hr) 1 patch DAILY TD 03/29/16 09:00 04/07/16 09:25 Miscellaneous Information 1 HS TD 03/29/16 21:00 04/07/16 20:57 Albumin Human (Albumin 25% Inj) 50 gm Q12H IV 03/29/16 10:00 04/07/16 20:58 Dronabinol (Marinol) 2.5 mg BID@11,16 PO 03/29/16 16:00 04/07/16 17:01 Acetaminophen/ Hydrocodone Bitart ([place] 10-325 Mg) 1 tab Q6H PRN PO pain 1-10 03/31/16 11:15 04/07/16 17:01 Folic Acid (Folate) 1 mg DAILY PO 03/31/16 11:30 04/07/16 09:24 Prochlorperazine Edisylate (Compazine Inj) 10 mg Q6H PRN IM nausea 04/05/16 21:00 04/06/16 08:39 Tamsulosin HCl (Flomax) 0.4 mg DAILY PO 04/07/16 09:00 04/07/16 09:25 Hydromorphone HCl (Dilaudid Pf Inj) 1 mg Q4H PRN IV PUSH PAIN 6-10 04/07/16 21:15 04/08/16 06:25 Objective Remarks GENERAL: Older male, lying in bed. Cachetic. SKIN: Warm and dry. Pale HEAD: Normocephalic. EYES: No injection or drainage. NECK: Supple, trachea midline. CARDIOVASCULAR: +S1/S2. RESPIRATORY: Mild rhonchi throughout. Breathing unlabored. GASTROINTESTINAL: +Fluid wave. Distended. +BS. EXTREMITIES: No edema. MUSCULOSKELETAL: Extreme muscle wasting. NEUROLOGICAL: A&Ox3. Assessment/Plan Problem List: (1) Mesothelioma, malignant Status: Acute Plan: 04/08/16: Patient is cleared for discharge from oncology standpoint. He would like to go to hospice but he is not yet ready to finalize that decision. 04/05/16: patient still pondering his options. He is clear for discharge home. He wants hospice care and does nto want to make a decision yet. Abdomen more distended. He is going to have another paracentesis. --palliative care following. patient is leaning toward hospice. on 04/01/16 patient had meeting with hospice but has not enrolled with hospice yet --CT chest -- no mets --EGD showed ulcer, gastritis, esophagitis. --Colonoscopy was a poor prep but no obvious mass noted. --He left against medical advice the last time he was here. He now re- presented with increased shortness of breath and tense ascites. --had another paracentesis and removal of 16 liters of clear yellow fluid 03/26. --03/31/16 paracentesis with removal >18L. The pt was told of his diagnosis of malignant mesothelioma. extensive discussion with patient and his father at the bedside. treatment options reviewed. patient stated that he is always against chemotherapy and he does not think he would consider chemotherapy. He would like to pursue alternative medicine. At this time, he is leaning towards hospice for comfort care but he wants more time to think about it. (2) Malnutrition Status: Acute Plan: --continue nutritional support Assessment 55y/o male with malignant mesothelioma (biphasic type) diagnosed in 02/2016. --has had recurrent ascites since September 2015. Plan 1. Continue therapeutic paracentesis as needed. 2. Okay for discharge from oncology standpoint. 3. Supportive care. Attending Statement The exam, history, and the medical decision-making described in the above note were completed with the assistance of the mid-level provider. I reviewed and agree with the findings presented. I attest that I had a [id number] encounter with the patient on the same day, and personally performed and documented my assessment and findings in the medical record. Abdominal pain is controlled. He does not want chemotherapy and stated that he wants hospice but has not pick a hospice yet. He can be d/c from oncology standpoint. Discussed with . Vicky Webb Apr 08, 2016 09:14 Kane Calix MD Apr 08, 2016 15:54
[2016-04-08] MEDS: LIDOCAINE HCL 5% PATCH TD SCH (09:35)
[2016-04-08] MEDS: ALBUMIN HUMAN 25% 25 GM/100 ML BAGP IV SCH (09:36)
[2016-04-08] MEDS: MAGNESIUM OXIDE 400 MG TAB PO SCH (09:37)
[2016-04-08] MEDS: TAMSULOSIN HCL 0.4 MG CAP PO SCH (09:37)
[2016-04-08] MEDS: CALCIUM CARBONATE 500 MG CHEWABLE TAB CHEW SCH ×2 (09:37→20:49)
[2016-04-08] MEDS: FOLIC ACID 1 MG TAB PO SCH (09:37)
[2016-04-08] MEDS: DRONABINOL 2.5 MG CAP PO SCH ×2 (09:51→16:00)
[2016-04-08 12:00] VITALS: BP 80/50
--- NOTE | 2016-04-08 13:53 | HHI.PR ---
Subjective Remarks no acute events no pain complains, no feeling of abdominal discomfort d/w him - states he is willing to meet with Hospice to know more about theirs service- will put in a consult but he still talks about alternative medications - apparently goes to diff websites and looks for alternative cancer therapy Objective Vitals Vital Signs Date Time Temp Pulse Resp B/P Pulse Ox O2 Delivery O2 Flow Rate FiO2 04/08/16 12:00 80/50 04/08/16 11:21 92 Room Air 04/08/16 10:03 Room Air 04/08/16 08:00 97.2 118 16 77/56 92 04/08/16 04:00 97.8 112 19 81/64 93 04/08/16 00:00 97.9 98 19 95/64 97 04/07/16 20:56 98 Nasal Cannula 2.00 04/07/16 20:55 118 84/65 04/07/16 16:00 98.5 117 20 86/64 100 04/07/16 16:00 98.5 117 20 86/64 100 I/O 04/07/16 04/07/16 04/07/16 04/08/16 04/08/16 04/08/16 07:00 15:00 23:00 07:00 15:00 23:00 Intake Total 720 ml 480 ml 120 ml 60 ml Output Total 400 ml 200 ml 200 ml 200 ml Balance 320 ml 280 ml -80 ml -140 ml Intake Oral 720 ml 480 ml 120 ml 60 ml Output Urine Total 400 ml 200 ml 200 ml 200 ml Bladder Scan Volume Amount 492 ml 492 ml 492 ml # Bowel Movements 0 0 0 Result Diagram: 04/07/16 0554 Imaging Last Impressions Cyst Biopsy Asp-Paracentesis US 04/05/16 0800 Signed Impressions: Service Date/Time: Tuesday, April 05, 2016 10:50 - CONCLUSION: Uncomplicated ultrasound guided paracentesis. Patient received albumin per protocol. Kaleb White MD FACR Abdomen Biopsy CT 03/27/16 0000 Signed Impressions: Service Date/Time: February 12:02 - CONCLUSION: Uncomplicated CT guided biopsy of a focal soft tissue density on the right peritoneum.. Alonso Oneil MD Chest X-Ray 03/25/16 1718 Signed Impressions: Service Date/Time: Friday, March 25, 2016 17:34 - CONCLUSION: Almost complete resolution of the previously seen the right lung base consolidation. Gabrielle Tipton MD Objective Remarks awake and alert, oriented x 3 cachectic looking anicteric no rales, no wheezes abdomen-- distended soft, + fluid wave extremities no edema Procedures -repeated paracentesis 03/25, 04/05 -CT guided biopsy of omentum by IR 03/28/16. Date of Insertion: Apr 06, 2016 A/P Problem List: (1) Severe sepsis ICD Code: A41.9 Status: Acute (2) Hyponatremia ICD Code: E87.1 Status: Acute (3) Hyperkalemia ICD Code: E87.5 Status: Resolved (4) Increased anion gap metabolic acidosis ICD Code: E87.2 Status: Acute (5) CHELY (acute kidney injury) ICD Code: N17.9 Status: Resolved (6) Thrombocytosis ICD Code: D47.3 Status: Acute (7) Hypoglycemia ICD Code: E16.2 Status: Acute (8) Severe protein-calorie malnutrition ICD Code: E43 Status: Acute (9) Hematemesis ICD Code: K92.0 Status: Acute Assessment and Plan This is a 55-year-old male with past medical history of ascites for which he has gotten multiple ultrasound-guided paracentesis with drainage of large amount of ascites for about the past 6 months. He is here for worsening ascites and shortness of breath and had significant hypotension in the ER with a blood pressure of 77/52 requiring IV albumin and fluids. He is also tachycardic and WBC is elevated at 18.8 with neutrophilia. Lactic acid elevated at 3.1. Potassium 6.6 on admission and sodium is low at 126. Anion gap is elevated at 16 and he shows acute kidney injury with BUN of 71, creatinine 1.95, estimated GFR 36. Hypoglycemia noted with glucose initially 58 and 48 on repeat BMP. Patient BNP 1846. He is notably cachectic with bitemporal wasting and has a low albumin 1.9. Severe sepsis - UTI vs SBP S/P course of Ceftriaxone 04/05 Metabolic acidosis resolved Hypotension- patient with no effective circulating volume due to 3rd spacing Buttocks with pressure wounds, present on admission. Stage 2 pressure injury to sacrum that is resolving. Also stage 4 left ischium pressure injury. Has right upper thigh between hip and ischium skin loss not pressure related. Consult wound care nurse, following. Cleanse wounds with NS and apply foam dressings to change every 3 days or PRN for saturation or dislodgement - Blood cultures 2 and urine culture pending; follow results - Lactic acid sepsis protocol Recurrent Ascites - S/P Ultrasound-guided abdominal paracentesis with removal if 16L, repeat paracentesis 04/05 12,700 cc out Mesenteric mesothelioma MRI reviewed shows nodularity of the peritoneum with possible omental thickening. CA 15-3 and CA -[address] but [address] chest no evidence of metastatic disease EGD recent last admission showed ulcer gastritis, esophagitis Colonoscopy recent last admission poor prep however no obvious mass Note patient left AMA last admission and was a plan for biopsy. Patient with anorexia, severe protein beverley malnutrition likely has underlying malignancy. -marinol for anorexia GI consulted will hold on any intervention, doesn't plan for colonoscopy Hem/onc Dr Calix aff Patient wants time to think if he will pursue medical treatment vs hospice. Back pain- Acute will give prn pain meds Will d/w patient with CM- per CM- Hospice care center candidate- get Hospice consult patient not decided yet -Dr. calix and Palliative care ff 04/07 I d/w him that he can had paracentesis done as OP prn for recurrent ascites - CM will try to find out how this can be arranged PT daily Clifton Villalba MD Apr 08, 2016 13:53
[2016-04-08 16:00] VITALS: BP 82/56; PULSE 112; RESP 18; TEMP 97.4; O2SAT 93
[2016-04-08] MEDS: ACETAMINOPHEN/HYDROcodone 325 MG/10 MG TAB PO PRN ×2 (16:00→20:50)
--- NOTE | 2016-04-08 16:02 | HHI.HCPN ---
Reason for visit a. To assist with evaluation and management of symptoms including: Dyspnea, pain, ascites b. To assist medical decision maker(s) with: better understanding of current medical conditions; weighing benefits/burdens of medical treatment options; making medical treatment decisions. Subjective/Interval History Patient seen in follow-up on comfort , goals. Pathology resulted as mesothelioma, oncology and palliative have had ongoing discussions w pt RE palliative chemo vs. hospice and comfort measures. No longer needs acute care hospitalization, discharge planning in process, pt apparently still undecided RE hospice. Palliative received VM from requesting follow up to assist pt w clarification of goals/ choice. Repeat paracentesis for ascites/comfort 04/05. Cont to have pain to back requiring PRN morphine, [place], hydromorphone was added yesterday. Utilized 1 dose hydromorphone yesterday, 5 doses today. Patient seen today in room no visitors present. He is awake, tells me that he just woke up and is still reorienting himself. He is awake, oriented to person place confused to date. Seems to have reasonable insight to current hospital course, name physician Dr Villalba who he saw today. Understands he has been offered palliative chemotherapy versus hospice for comfort measures only. He tells me that all last week he was trying to gather information, "or that's when he was telling us ", but he wasn't really gathering all the information at that time, but now he understands he needs to make an actual decision and plans to review all the information and make a decision in the next day or so. Explore that he could still pursue alternative therapy while in hospice. He indicates he thinks he wants to be comfortable with hospice he just wants to talk to everyone "one more time" to ensure he had all the information. Advise that oncology is signing off as they have no other services to provide inpatient , and that I am meeting with him again, and that hospice can follow-up with him again but that the information is not changing. Ask if I may call his father as his father is his support system, he agrees to this. Following exam call to patient father, spoke with him, he has been present with patient during original diagnoses, during multiple oncology conversations as well as conversation with palliative last week. There seems to have a good understanding of condition and prognosis. Father feels like patient has a good understanding of condition and prognosis and limited treatment options. Father tells me that as of yesterday afternoon, when he left here that the patient had agreed to proceed with hospice enrollment based on father's recommendation. He was not aware that the patient was still wavering in his decision. He will continue to try to support the patient in his decision-making as he feels patient would be appropriate for hospice(of note patient father works as a lpn rn hospice). Advise patient will likely be discharged in the next day so we are encouraging him to make a decision. Following this, call back to case management-- updated. Spoke with hospice admissions they will follow-up with patient her morning. Discuss with case management, hospice squad boss, oncology. . Advance Directives Living Will: Never completed Health Care Surrogate: Never completed Objective Vital Signs Date Time Temp Pulse Resp B/P Pulse Ox O2 Delivery O2 Flow Rate FiO2 04/08/16 14:16 18 04/08/16 12:00 80/50 04/08/16 11:21 92 Room Air 04/08/16 10:03 Room Air 04/08/16 08:00 97.2 118 16 77/56 92 04/08/16 04:00 97.8 112 19 81/64 93 04/08/16 00:00 97.9 98 19 95/64 97 04/07/16 20:56 98 Nasal Cannula 2.00 04/07/16 20:55 118 84/65 04/07/16 16:00 98.5 117 20 86/64 100 04/07/16 16:00 98.5 117 20 86/64 100 Intake & Output 04/08/16 04/08/16 07:00 19:00 Intake Total 180 ml 0 ml Output Total 400 ml Balance -220 ml 0 ml Intake Oral 180 ml IV Total 0 ml Output Urine Total 400 ml Bladder Scan Volume Amount 492 ml # Bowel Movements 0 Physical Exam CONSTITUTIONAL/GENERAL: Very cachectic, frail-appearing patient. Temporal wasting evident. Awake, cooperative, pleasant TUBES/LINES/DRAINS: Peripheral IV upper extremity. CARDIOVASCULAR: Regular rate and rhythm. No peripheral edema observed. RESPIRATORY/CHEST: Symmetric respirations, slightly short of breath with any movement in bed. On room air. GI/: Abdomen round, distended, mildly tender. MUSCULOSKELETAL: Extremities without clubbing, cyanosis, or edema. Extremities extremely thin with significant muscle atrophy 4. NEUROLOGICAL: Awake and alert-oriented x2-3. Appears to have reasonable insight. Moves all 4 extremities. PSYCHIATRIC: No obvious anxiety/depression. no apparent hallucinations or other psychotic thought process. . Diagnostic Tests Laboratory Laboratory Tests Test 04/07/16 05:54 Creatinine 0.44 MG/DL (0.60-1.30) Estimat Glomerular Filtration 201 ML/MIN Rate (>89) Result Diagram: 04/07/16 0554 Imaging Last Impressions Cyst Biopsy Asp-Paracentesis US 04/05/16 0800 Signed Impressions: Service Date/Time: Tuesday, April 05, 2016 10:50 - CONCLUSION: Uncomplicated ultrasound guided paracentesis. Patient received albumin per protocol. Kaleb White MD FACR Abdomen Biopsy CT 03/27/16 0000 Signed Impressions: Service Date/Time: February 12:02 - CONCLUSION: Uncomplicated CT guided biopsy of a focal soft tissue density on the right peritoneum.. Alonso Oneil MD Chest X-Ray 03/25/16 1718 Signed Impressions: Service Date/Time: Friday, March 25, 2016 17:34 - CONCLUSION: Almost complete resolution of the previously seen the right lung base consolidation. Gabrielle Tipton MD Procedures 03/27CT-guided biopsy. 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 Supported by his father, as well as a close friend named Brodie. 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 Not , no children. Spiritual: Evangelical per EMR Legal:Patient appears to be fairly oriented and appropriate though difficult to fully assess insight. Affect is withdrawn and very limited engagement--appears to have some behavioral/personality component to his behavior/interaction. Appears he may be able to make his own decisions. Not , no children. Appears per [place] statutes his father would be legal decision maker if he were to become incapacitated. I attempt to explore health care surrogate designation with him he indicates he would want his father called in the case of an emergency Ethical issues impacting care: Important Contacts Bhavik Hernandez (father) [phone] Brodie Díaz (friend) [phone] . Prognosis Patient is cachectic, with significant unintentional weight loss. Suspected underlying malignancy --CT-guided abdominal biopsy indicative of biphasic mesothelioma. Poor performance status, frail underlying condition, patient could consider seeking treatment at [facility] versus palliative chemotherapy locally , or comfort measures would be appropriate. . Code Status: No Code Plan * Legal decision maker:Patient appears to be fairly oriented and appropriate though difficult to fully assess insight. Affect is withdrawn and very limited engagement--appears to have some behavioral/personality component to his behavior/interaction. Appears he may be able to make his own decisions. Not , no children. Appears per [place] statutes his father would be legal decision maker if he were to become incapacitated. I attempt to explore health care surrogate designation with him he indicates he would want his father called in the case of an emergency * Goals: Patient is still undecided regarding pursuing palliative chemotherapy versus hospice and comfort. He is leaning towards hospice and comfort and apparently spoke with his father yesterday 04/07 and agreed to proceed with hospice enrollment, though today he is still vacillating in his decision. Patient father has encouraged him to enroll in hospice. Discuss with case management as well as hospice, hospice to follow-up with him tomorrow morning. Patient father to continue to speak with him and support him in his choices. * CODE STATUS: DNR * SYMPTOMS: --Ascites-? Etiology, likely malignancy. Pathology + mesothelioma. Ongoing ascites for the past several months requiring frequent paracentesis for large amount of volume most recently. Consider IR for Aspira catheter for frequent drainage (prior to DC?) --Dyspnea -patient denies any dyspnea. indicates has been fine since the paracentesis and that is not his primary concern. comfortable on Rm air. We'll continue to monitor. --Paindenies abdominal pain, has had some but has improved since paracentesis. primary pain is "at the back of his throat going through to his spine "-- this pain is "much better today" and in the past few days. Has prn medications [place], morphine--hydromorphone has been added Which he indicates is currently effective. [ required--1 dose hydromorphone yesterday, 5 doses today.] Could consider up titration of opiates for pain relief if prn use ineffective, though appears effective at this time. Will cont to evaluate --Malnutrition-albumin 1.9. Patient extremely frail, cachectic. Unintentional weight loss of around 40-50 pounds. Poor oral intake secondary to pain and nausea.denies nausea, recently indicates swallowing is improved. Likely 2/2 malignancy. * Palliative care will continue to follow during hospital course as condition evolves, to assist patient/decision-maker with understanding of medical conditions, weighing benefits/burdens of treatment options, for clarification of goals of treatment. Additionally will assist with any symptoms of palliative concern Time Spent Total Floor Time (mins): 30 >50% Counseling/Coord of Care: Yes (discuss with case management, oncology, hospice admissions) Attestation To help prompt me to consider important information that might be impacting today's encounter and assessment, information from prior notes written by myself or my colleagues may have been "brought forward" into today's note. My signature on this note, however, is an attestation that I personally performed the exam, history, and/or decision-making noted today, and, unless otherwise indicated, the interactions with patient, family, and staff as well as the review of records all occurred today. I also attest that the listed assessment and stated plan reflect my best clinical judgment today based on the combination of historical information, prior notes, and today's exam/ interactions. When time spent is documented, it refers only to time spent today by the signer, or if indicated, combined time spent today by collaborating physician/nurse practitioner. Raisa Garrett Apr 08, 2016 16:02
[2016-04-08 20:00] VITALS: BP 94/72; PULSE 120; RESP 18; TEMP 96; O2SAT 94
[2016-04-08] MEDS: REMOVE OLD PATCH TD SCH (21:00)
[2016-04-09] VITALS: BP 97/73; PULSE 127; RESP 16; TEMP 97.4; O2SAT 98
[2016-04-09] MEDS ORDERED: HYDROmorphone HCL PF 1 MG/ML VIAL IV PUSH ONE (00:30)
[2016-04-09] MEDS: ONDANSETRON HCL 4 MG/2 ML VIAL IVP PRN ×3 (00:46→21:22)
[2016-04-09] MEDS: ACETAMINOPHEN/HYDROcodone 325 MG/10 MG TAB PO PRN ×2 (03:05→19:35)
[2016-04-09 04:00] VITALS: BP 82/59; PULSE 120; RESP 15; TEMP 97.3; O2SAT 90
[2016-04-09] MEDS: CYCLOBENZAPRINE HCL 10 MG TAB PO SCH ×3 (06:00→21:21)
[2016-04-09] MEDS: DIPHENHY/LIDO/MAG/ALUM MOUTHWASH (Adult/Peds) 60 ML BTL SWISH-SWAL SCH ×4 (07:00→21:00)
[2016-04-09 07:40] VITALS: BP 87/63; PULSE 123; RESP 20; TEMP 98.2; O2SAT 94
[2016-04-09] MEDS: FOLIC ACID 1 MG TAB PO SCH (09:51)
[2016-04-09] MEDS: MAGNESIUM OXIDE 400 MG TAB PO SCH (09:51)
[2016-04-09] MEDS: TAMSULOSIN HCL 0.4 MG CAP PO SCH (09:51)
[2016-04-09] MEDS: LIDOCAINE HCL 5% PATCH TD SCH (09:52)
[2016-04-09] MEDS: SODIUM CHLORIDE 0.9% FLUSH 5 ML FLUSH FLUSH SCH ×2 (09:52→21:23)
[2016-04-09] MEDS: CALCIUM CARBONATE 500 MG CHEWABLE TAB CHEW SCH ×2 (09:52→21:21)
[2016-04-09] MEDS: HYDROmorphone HCL PF 1 MG/ML VIAL IV PUSH PRN ×2 (09:58→21:22)
[2016-04-09] MEDS: DRONABINOL 2.5 MG CAP PO SCH ×2 (10:01→16:00)
--- NOTE | 2016-04-09 11:06 | PD.ONC.PN ---
Subjective Subjective Remarks Afebrile overnight. Patient without overnight events. Still hasn't made a decision about hospice or treatment. Objective Data Date Time Temp Pulse Resp B/P Pulse Ox O2 Delivery O2 Flow Rate FiO2 04/09/16 07:40 98.2 123 20 87/63 94 04/09/16 04:00 97.3 120 15 82/59 90 04/09/16 00:00 97.4 127 16 97/73 98 04/08/16 20:00 94 Room Air 04/08/16 20:00 96.0 120 18 94/72 94 04/08/16 18:30 18 04/08/16 17:00 18 04/08/16 16:00 97.4 112 18 82/56 93 04/08/16 12:00 80/50 04/08/16 11:21 92 Room Air 04/09/16 04/09/16 04/09/16 07:00 15:00 23:00 Intake Total 480 ml Output Total 350 ml Balance 130 ml Result Diagram: 04/07/16 0554 Administered Medications Medications (Trade) Dose Ordered Sig/Maude Route PRN Reason Start Time Stop Time Status Last Admin Dose Admin IV Flush (NS Flush) 2 ml UNSCH PRN FLUSH FLUSH AFTER USING IV ACCESS 03/25/16 18:30 04/09/16 00:46 IV Flush (NS Flush) 2 ml BID FLUSH 03/25/16 21:00 04/09/16 09:52 Ondansetron HCl (Zofran Inj) 4 mg Q6H PRN IVP NAUSEA OR VOMITING 03/25/16 18:30 04/09/16 00:46 Prochlorperazine (Compazine Supp) 25 mg Q12H PRN AK NAUSEA OR VOMITING 03/25/16 18:30 04/07/16 20:56 Lidocaine/ Diphenhydr/Alum/ Mg/Simeth (Magic Mouthwash Pediatric/Adult Liq) 5 ml ACHS SWISH-SWAL 03/26/16 11:00 04/07/16 17:02 Cyclobenzaprine HCl (Flexeril) 5 mg Q8HR PO 03/28/16 14:00 04/08/16 20:49 Calcium Carbonate (Tums Chew) 500 mg Q12HR CHEW 03/29/16 09:00 04/09/16 09:52 Magnesium Oxide (Mag-Ox) 400 mg DAILY PO 03/29/16 09:00 04/09/16 09:51 Lidocaine HCl (Lidoderm 5% Patch.12 Hr) 1 patch DAILY TD 03/29/16 09:00 04/09/16 09:52 Miscellaneous Information 1 HS TD 03/29/16 21:00 04/08/16 21:00 Dronabinol (Marinol) 2.5 mg BID@11,16 PO 03/29/16 16:00 04/09/16 10:01 Acetaminophen/ Hydrocodone Bitart ([place] 10-325 Mg) 1 tab Q6H PRN PO pain 1-10 03/31/16 11:15 04/09/16 03:05 Folic Acid (Folate) 1 mg DAILY PO 03/31/16 11:30 04/09/16 09:51 Prochlorperazine Edisylate (Compazine Inj) 10 mg Q6H PRN IM nausea 04/05/16 21:00 04/06/16 08:39 Tamsulosin HCl (Flomax) 0.4 mg DAILY PO 04/07/16 09:00 04/09/16 09:51 Hydromorphone HCl (Dilaudid Pf Inj) 0.5 mg Q3HR PRN IV PUSH PAIN 6-10 04/09/16 11:00 04/09/16 09:58 Objective Remarks GENERAL: Cachetic male, sitting up in bed, talking on the phone. SKIN: Warm and dry. HEAD: Normocephalic. EYES: No injection or drainage. NECK: Supple, trachea midline. CARDIOVASCULAR: Regular rate and rhythm RESPIRATORY: Breath sounds equal bilaterally. No accessory muscle use. GASTROINTESTINAL: abdomen distended with ascites. EXTREMITIES: No cyanosis NEUROLOGICAL: awake and alert, normal speech. moving extremities. Assessment/Plan Problem List: (1) Mesothelioma, malignant Status: Acute Plan: 04/09/16: clear for discharge. continue supportive care. 04/05/16: patient still pondering his options. He is clear for discharge home. He wants hospice care and does nto want to make a decision yet. Abdomen more distended. He is going to have another paracentesis. --palliative care following. patient is leaning toward hospice. on 04/01/16 patient had meeting with hospice but has not enrolled with hospice yet --CT chest -- no mets --EGD showed ulcer, gastritis, esophagitis. --Colonoscopy was a poor prep but no obvious mass noted. --He left against medical advice the last time he was here. He now re- presented with increased shortness of breath and tense ascites. --had another paracentesis and removal of 16 liters of clear yellow fluid 03/26. --03/31/16 paracentesis with removal >18L. The pt was told of his diagnosis of malignant mesothelioma. extensive discussion with patient and his father at the bedside. treatment options reviewed. patient stated that he is always against chemotherapy and he does not think he would consider chemotherapy. He would like to pursue alternative medicine. At this time, he is leaning towards hospice for comfort care but he wants more time to think about it. (2) Malnutrition Status: Acute Plan: --continue nutritional support Assessment 55y/o male with malignant mesothelioma (biphasic type) diagnosed in 02/2016. --has had recurrent ascites since September 2015. Plan 1. clear for d/c 2. continue supportive care Attending Statement The exam, history, and the medical decision-making described in the above note were completed with the assistance of the mid-level provider. I reviewed and agree with the findings presented. I attest that I had a [id number] encounter with the patient on the same day, and personally performed and documented my assessment and findings in the medical record. Abdomen more distended again. He is still wavering about hospice. He does not want chemotherapy. Continue comfort care. Chiquita Bahena Apr 09, 2016 11:06 Kane Calix MD Apr 09, 2016 15:41
[2016-04-09 12:00] VITALS: BP 82/60; PULSE 129; RESP 20; TEMP 98.7; O2SAT 95
--- NOTE | 2016-04-09 12:14 | HHI.PR ---
Subjective Remarks d/w Dr. Hill -this am refused catheter placement for recurrent ascites reason being that he thinks he will sign up with hospice in 2-3 days- I don't want to force him to have tap done- patient still appears to be undecided d/w that the catheter has nothing to do with him signing up with hospice or not - this is for the recurrent ascites- that is rapidly accumulating requiring tap q 2-3 days with > 10 L out -d/w nurse if he refuse let him sign form Objective Vitals Vital Signs Date Time Temp Pulse Resp B/P Pulse Ox O2 Delivery O2 Flow Rate FiO2 04/09/16 07:40 98.2 123 20 87/63 94 04/09/16 04:00 97.3 120 15 82/59 90 04/09/16 00:00 97.4 127 16 97/73 98 04/08/16 20:00 94 Room Air 04/08/16 20:00 96.0 120 18 94/72 94 04/08/16 18:30 18 04/08/16 17:00 18 04/08/16 16:00 97.4 112 18 82/56 93 I/O 04/08/16 04/08/16 04/08/16 04/09/16 04/09/16 04/09/16 07:00 15:00 23:00 07:00 15:00 23:00 Intake Total 60 ml 0 ml 240 ml 480 ml Output Total 200 ml 350 ml Balance -140 ml 0 ml 240 ml 130 ml Intake Oral 60 ml 240 ml 480 ml IV Total 0 ml Output Urine Total 200 ml 350 ml Bladder Scan Volume Amount 492 ml # Bowel Movements 0 Result Diagram: 04/07/16 0554 Imaging Last Impressions Cyst Biopsy Asp-Paracentesis US 04/05/16 0800 Signed Impressions: Service Date/Time: Tuesday, April 05, 2016 10:50 - CONCLUSION: Uncomplicated ultrasound guided paracentesis. Patient received albumin per protocol. Kaleb White MD FACR Abdomen Biopsy CT 03/27/16 0000 Signed Impressions: Service Date/Time: February 12:02 - CONCLUSION: Uncomplicated CT guided biopsy of a focal soft tissue density on the right peritoneum.. Alonso Oneil MD Chest X-Ray 03/25/16 1718 Signed Impressions: Service Date/Time: Friday, March 25, 2016 17:34 - CONCLUSION: Almost complete resolution of the previously seen the right lung base consolidation. Gabrielle Tipton MD Objective Remarks awake and alert, oriented x 3 cachectic looking anicteric no rales, no wheezes abdomen-- distended soft, + fluid wave extremities no edema Procedures -repeated paracentesis 03/25, 04/05 -CT guided biopsy of omentum by IR 03/28/16. Date of Insertion: Apr 06, 2016 A/P Problem List: (1) Severe sepsis ICD Code: A41.9 Status: Acute (2) Hyponatremia ICD Code: E87.1 Status: Acute (3) Hyperkalemia ICD Code: E87.5 Status: Resolved (4) Increased anion gap metabolic acidosis ICD Code: E87.2 Status: Acute (5) CHELY (acute kidney injury) ICD Code: N17.9 Status: Resolved (6) Thrombocytosis ICD Code: D47.3 Status: Acute (7) Hypoglycemia ICD Code: E16.2 Status: Acute (8) Severe protein-calorie malnutrition ICD Code: E43 Status: Acute (9) Hematemesis ICD Code: K92.0 Status: Acute Assessment and Plan This is a 55-year-old male with past medical history of ascites for which he has gotten multiple ultrasound-guided paracentesis with drainage of large amount of ascites for about the past 6 months. He is here for worsening ascites and shortness of breath and had significant hypotension in the ER with a blood pressure of 77/52 requiring IV albumin and fluids. He is also tachycardic and WBC is elevated at 18.8 with neutrophilia. Lactic acid elevated at 3.1. Potassium 6.6 on admission and sodium is low at 126. Anion gap is elevated at 16 and he shows acute kidney injury with BUN of 71, creatinine 1.95, estimated GFR 36. Hypoglycemia noted with glucose initially 58 and 48 on repeat BMP. Patient BNP 1846. He is notably cachectic with bitemporal wasting and has a low albumin 1.9. S/P Severe sepsis - UTI vs SBP S/P course of Ceftriaxone 04/05 Metabolic acidosis resolved Hypotension- patient with no effective circulating volume due to 3rd spacing Buttocks with pressure wounds, present on admission. Stage 2 pressure injury to sacrum that is resolving. Also stage 4 left ischium pressure injury. Has right upper thigh between hip and ischium skin loss not pressure related. wound care nurse, following. Cleanse wounds with NS and apply foam dressings to change every 3 days or PRN for saturation or dislodgement - Blood cultures 2 and urine culture negative Recurrent Ascites - S/P Ultrasound-guided abdominal paracentesis with removal if 16L, repeat paracentesis 04/05 12,700 cc out Mesenteric mesothelioma MRI reviewed shows nodularity of the peritoneum with possible omental thickening. CA 15-3 and CA -[address] chest no evidence of metastatic disease EGD recent last admission showed ulcer gastritis, esophagitis Colonoscopy recent last admission poor prep however no obvious mass Note patient left AMA last admission and was a plan for biopsy. Patient with anorexia, severe protein beverley malnutrition likely has underlying malignancy. -marinol for anorexia GI consulted will hold on any intervention, doesn't plan for colonoscopy Hem/onc Dr Calix aff Patient wants time to think if he will pursue medical treatment vs hospice. - still wavering _ told him he is not pressured to anything- if he has not decided we will send him home and have home health care ff up closely Back pain- Acute prn pain meds Will d/w patient with CM- per CM- Hospice care center candidate- patient not decided yet -Dr. calix and Palliative care ff PT daily Clifton Villalba MD Apr 09, 2016 12:14
[2016-04-09] MEDS ORDERED: HYDROmorphone HCL PF 2 MG/ML VIAL ONE (13:56)
[2016-04-09 16:00] VITALS: BP 85/63; PULSE 123; RESP 20; TEMP 96.4; O2SAT 93
--- NOTE | 2016-04-09 16:19 | PD.RAD ---
Post Procedure Progress Note Procedure Date: Apr 09, 2016 Supervising Radiologist: Timbo Hill Plan of Activity See PACS Report for procedural detail/treatment Drainage Procedure Procedure 1 Imaging Guidance: Fluoroscopy, Ultrasound Side: Right Procedure Type: Peritoneal Catheter Non-Tunneled Procedure: Placement Vietnamese: 10 Drainage: [place] drainage Fluid Removal (CCs): 1050 Fluid Description: Timbo Maurice MD Apr 09, 2016 16:19
--- NOTE | 2016-04-09 16:31 | RADRPT ---
EXAM DATE/TIME: 04/09/2016 13:05 [place] COMPARISON: No previous studies available for comparison. INDICATIONS : Patient with history of recurrent ascites in need of catheter placement for paracentesis. MEDICAL HISTORY : Ascites. Renal failure, acute. Malignant mesothelioma. Metabolic acidosis. Dyspnea. Abdominal pain. SURGICAL HISTORY : Mutliple thoracentesis. Multiple paracentesis. ENCOUNTER: Initial ACUITY: >1 year PAIN SCORE: 9/10 Back FLUORO TIME: 0.2 minutes SEDATION TIME: 15 minutes SEDATION: 1.) 1 mg hydromorphone (Dilaudid) IV DEVICE(S): 1.) 10 Burmese Locking Expel Drainage catheter FLUID: Total volume [id number] cc of cloudy, yellow fluid was removed. PROCEDURE : 1. Fluoroscopic and ultrasound guidance for abdominal paracentesis. 2. Paracentesis. The risks, benefits, and alternatives to paracentesis were explained to the patient in detail, lay te luis eduardo including the risk of bleeding and infection. Oral and written informed consent was obtained. The site was prepped in sterile fashion. Full sterile technique was used, including cap, mask, steri le gloves and gown and a large sterile sheet. Hand hygiene and 2% chlorhexidine and/or betadine/alco hol prep was utilized per protocol for cutaneous antisepsis. The skin and subcutaneous tissues were infiltrated with local anesthetic solution. Ultrasound was performed to select an appropriate location for peritoneal catheter placement. The ski n and subcutaneous tissues in the perineal lining were anesthetized with buffered lidocaine solution with epinephrine. A small dermatotomy was made in the medial right lower quadrant. An 18 gauge Hawkin s blunt needle was used to take an oblique course from superior medial to inferior lateral to the abd ominal subcutaneous tissues from the dermatotomy site and then under direct ultrasound visualization, the blunt needle was punctured into the peritoneal cavity. This approach resulted in a roughly 6-8 c m subcutaneous tract for the catheter. A Bentson wire was introduced and coiled in the peritoneal cav ity. The tract was dilated and a 10 Burmese Expel locking pigtail catheter was introduced. The cathete r was secured at the skin with Prolene suture and dressed with gauze. Paracentesis was then accomplished with removal of 1050 mL's of cloudy fluid utilizing wall suction. The tube was flushed and capped. The patient tolerated the procedure well and left the angio suite in good condition. CONCLUSION: Uncomplicated paracentesis. Timbo Hill MD on April 09, 2016 at 16:25 Board Certified Radiologist. This report was verified electronically.
[2016-04-09 20:00] VITALS: BP 79/63; PULSE 75; RESP 18; TEMP 97.6; O2SAT 96
[2016-04-09] MEDS: REMOVE OLD PATCH TD SCH (21:00)
[2016-04-10] VITALS: BP 81/66; PULSE 120; RESP 16; TEMP 97.7; O2SAT 95
[2016-04-10] MEDS: HYDROmorphone HCL PF 1 MG/ML VIAL IV PUSH PRN ×6 (01:11→20:32)
[2016-04-10] MEDS: ACETAMINOPHEN/HYDROcodone 325 MG/10 MG TAB PO PRN (02:44)
[2016-04-10 04:00] VITALS: BP 81/65; PULSE 125; RESP 16; TEMP 97.1; O2SAT 98
[2016-04-10] MEDS: CYCLOBENZAPRINE HCL 10 MG TAB PO SCH ×2 (06:07→13:24)
[2016-04-10] MEDS: DIPHENHY/LIDO/MAG/ALUM MOUTHWASH (Adult/Peds) 60 ML BTL SWISH-SWAL SCH ×3 (06:08→17:49)
[2016-04-10 08:00] VITALS: BP 83/58; PULSE 120; RESP 20; TEMP 96.1; O2SAT 93
[2016-04-10] MEDS: CALCIUM CARBONATE 500 MG CHEWABLE TAB CHEW SCH (09:55)
[2016-04-10] MEDS: LIDOCAINE HCL 5% PATCH TD SCH (09:55)
[2016-04-10] MEDS: MAGNESIUM OXIDE 400 MG TAB PO SCH (09:56)
[2016-04-10] MEDS: TAMSULOSIN HCL 0.4 MG CAP PO SCH (09:56)
[2016-04-10] MEDS: FOLIC ACID 1 MG TAB PO SCH (09:56)
[2016-04-10] MEDS: SODIUM CHLORIDE 0.9% FLUSH 5 ML FLUSH FLUSH SCH (09:56)
--- NOTE | 2016-04-10 10:01 | HHI.PR ---
Subjective Remarks seen with Mom at bedside patient very interactive, no complains of pain,nausea or vomiting patient is aware of all options hospice care center- inform him that he will be ideal for hospice care center and they have accepted him but he won't sign the paper Objective Vitals Vital Signs Date Time Temp Pulse Resp B/P Pulse Ox O2 Delivery O2 Flow Rate FiO2 04/10/16 08:00 96.1 120 20 83/58 93 04/10/16 07:14 18 04/10/16 04:00 Room Air 21 04/10/16 04:00 97.1 125 16 81/65 98 04/10/16 00:00 97.7 120 16 81/66 95 04/09/16 20:35 18 04/09/16 20:00 97.6 75 18 79/63 96 04/09/16 16:00 96.4 123 20 85/63 93 04/09/16 12:00 98.7 129 20 82/60 95 I/O 04/09/16 04/09/16 04/09/16 04/10/16 04/10/16 04/10/16 07:00 15:00 23:00 07:00 15:00 23:00 Intake Total 480 ml 0 ml 480 ml 600 ml Output Total 350 ml 250 ml 300 ml 400 ml Balance 130 ml -250 ml 180 ml 200 ml Intake Oral 480 ml 0 ml 480 ml 600 ml IV Total 0 ml Output Urine Total 350 ml 250 ml 300 ml 400 ml Bladder Scan Volume Amount 492 ml # Bowel Movements 0 Result Diagram: 04/07/16 0554 Imaging Last Impressions Catheter Placement X-Ray 04/09/16 0000 Signed Impressions: Service Date/Time: Saturday, April 09, 2016 13:05 - CONCLUSION: Uncomplicated paracentesis. Timbo Hill MD Cyst Biopsy Asp-Paracentesis US 04/05/16 0800 Signed Impressions: Service Date/Time: Tuesday, April 05, 2016 10:50 - CONCLUSION: Uncomplicated ultrasound guided paracentesis. Patient received albumin per protocol. Kaleb White MD FACR Abdomen Biopsy CT 03/27/16 0000 Signed Impressions: Service Date/Time: February 12:02 - CONCLUSION: Uncomplicated CT guided biopsy of a focal soft tissue density on the right peritoneum.. Alonso Oneil MD Chest X-Ray 03/25/16 1718 Signed Impressions: Service Date/Time: Friday, March 25, 2016 17:34 - CONCLUSION: Almost complete resolution of the previously seen the right lung base consolidation. Gabrielle Tipton MD Objective Remarks awake and alert, oriented x 3 cachectic looking anicteric no rales, no wheezes abdomen--abdominal catheter in place- site clean right ischial wounds- extremities no edema Procedures -repeated paracentesis 03/25, 04/05 -CT guided biopsy of omentum by IR 03/28/16. abdominal IP catheter placement 04/09 [place] insert reason: Prolonged Immobilization Date of Insertion: Apr 06, 2016 A/P Problem List: (1) Severe sepsis ICD Code: A41.9 Status: Acute (2) Hyponatremia ICD Code: E87.1 Status: Acute (3) Hyperkalemia ICD Code: E87.5 Status: Resolved (4) Increased anion gap metabolic acidosis ICD Code: E87.2 Status: Acute (5) CHELY (acute kidney injury) ICD Code: N17.9 Status: Resolved (6) Thrombocytosis ICD Code: D47.3 Status: Acute (7) Hypoglycemia ICD Code: E16.2 Status: Acute (8) Severe protein-calorie malnutrition ICD Code: E43 Status: Acute (9) Hematemesis ICD Code: K92.0 Status: Acute Assessment and Plan This is a 55-year-old male with past medical history of ascites for which he has gotten multiple ultrasound-guided paracentesis with drainage of large amount of ascites for about the past 6 months. He is here for worsening ascites and shortness of breath and had significant hypotension in the ER with a blood pressure of 77/52 requiring IV albumin and fluids. He is also tachycardic and WBC is elevated at 18.8 with neutrophilia. Lactic acid elevated at 3.1. Potassium 6.6 on admission and sodium is low at 126. Anion gap is elevated at 16 and he shows acute kidney injury with BUN of 71, creatinine 1.95, estimated GFR 36. Hypoglycemia noted with glucose initially 58 and 48 on repeat BMP. Patient BNP 1846. He is notably cachectic with bitemporal wasting and has a low albumin 1.9. S/P Severe sepsis - UTI vs SBP S/P course of Ceftriaxone 04/05 Metabolic acidosis resolved Hypotension- patient with no effective circulating volume due to 3rd spacing Buttocks with pressure wounds, present on admission. Stage 2 pressure injury to sacrum that is resolving. Also stage 4 left ischium pressure injury. Has right upper thigh between hip and ischium skin loss not pressure related. wound care nurse, following. seen 04/09 Cleanse wounds with NS and apply xerofoam single layer and dry cover daily - Blood cultures 2 and urine culture negative Recurrent Ascites - S/P Ultrasound-guided abdominal paracentesis with removal if 16L, repeat paracentesis 04/05 12,700 cc out S/P abdominal IP catheter placement 04/09. Drain periodically or if patient feel distended- spoke with IR nurse to educate patient on how to drain catheter Mesenteric mesothelioma MRI reviewed shows nodularity of the peritoneum with possible omental thickening. CA 15-3 and CA -[address] specific CT chest no evidence of metastatic disease EGD recent last admission showed ulcer gastritis, esophagitis Colonoscopy recent last admission poor prep however no obvious mass Note patient left AMA last admission and was a plan for biopsy. Patient with anorexia, severe protein beverley malnutrition likely has underlying malignancy. -marinol for anorexia GI consulted will hold on any intervention, doesn't plan for colonoscopy Hem/onc Dr Calix aff DC to Hospice care center- if patient agrees Back pain- Acute prn pain meds Will d/w patient with CM- per CM- Hospice care center candidate- DC today Clifton Villalba MD Apr 10, 2016 10:00
[2016-04-10] MEDS: DRONABINOL 2.5 MG CAP PO SCH ×2 (10:04→16:00)
--- NOTE | 2016-04-10 10:46 | HHI.FF ---
Face to Face Verification Diagnosis: (1) Ascites (2) Mesothelioma, malignant Physical Therapy Order: Evaluate and Treat, Improve ambulation Occupational Therapy Order: Evaluate and Treat, Improve ADL Speech Therapy Order: To Improve: Cognitive skills Home Health Nursing Order: Medical education Signs/symptoms of disease process Wound care and dressing changes Nursing assessment with vital signs Home Health Aide Order: To Assist In: gear hobber operator and meal prep Clothing Presser Order: To Evaluate: Living conditions/environment, Support services I have seen patient Chaz Hernandez on 04/10/16. My clinical findings support the need for the requested home health care services because: Ltd mobility - disease progression Limited ability to care for self Need for psychosocial assistance I certify that my clinical findings support that this patient is homebound because: Need for psychosocial assistance Clifton Villalba MD Apr 10, 2016 10:46
--- NOTE | 2016-04-10 11:27 | HHI.HCPN ---
Reason for visit a. To assist with evaluation and management of symptoms including: Dyspnea, pain, ascites b. To assist medical decision maker(s) with: better understanding of current medical conditions; weighing benefits/burdens of medical treatment options; making medical treatment decisions. Subjective/Interval History Patient seen in follow-up on comfort , goals. [Pathology resulted as mesothelioma, oncology and palliative have had ongoing discussions w pt RE palliative chemo vs. hospice and comfort measures. No longer needs acute care hospitalization, discharge planning in process, pt apparently still undecided RE hospice]. Notified by case management with hospice admissions this morning the patient continues to vacillate and want more information to assist with decision-making regarding discharging with hospice versus going home with home health support. He seems to each day ask for more time to make decisions, currently not undergoing any further medical treatments during hospitalization. Oncology has signed off. He does remain appropriate for hospice services should he desire comfort oriented treatment only, which she has expressed thus far. However he has also been given the option to discharge home with home health while he continues to research and make decisions. Seen in room with dual visit with hospice city assessor. Patient mother also present. Patient tells me that he will need to speak to our supervisors, that he needs about 2 more days to do more research on hospice and possibly faxed the forms he wants his father to review these forms as he involves his father are normal decision making. I explore with him what are his goalshe informs that his goals are to control his pain and make a decision but he does not want to make a decision prematurely. He again tells me that his terms are that he wants another couple days to continue to gather informationI advised that all the providers of information are here currently to answer any additional questions he might have a bowel hospice. Review with him that his options are to have comfort treatments via hospice versus home with home health. Again review that he has a terminal condition which she understands, and that he has limited treatment options-- he may pursue palliative chemotherapy or comfort( which was the recommended course given his debilitated state.) He insists that he will need to speak to his father firstI offered to call his father, I did get him on speaker phone while in room I again reviewed with his father conditions, pending discharge, and that patient no longer needing medical treatment in the acute care setting so will need to be discharged. He does have options to discharge either with home health versus home or care center with hospice, patient's father again indicates he has a clear understanding of conditions and treatment options, he is a stationary engineer supervisor himself. He has strongly encouraged the patient to enroll in hospice as he feels this would be appropriate to manage patient's severe pain and debilitated condition. She has expressed to him comfort oriented goals. Portable patient' s decision-making. Patient states he will not talk to his father publicly on speaker phone, that he will need to speak to him again in private, patient father advises he will call the patient back shortly to speak with him in private. Updated history management, medical attending, on all the above. . Advance Directives Living Will: Never completed Health Care Surrogate: Never completed Objective Vital Signs Date Time Temp Pulse Resp B/P Pulse Ox O2 Delivery O2 Flow Rate FiO2 04/10/16 10:05 Room Air 04/10/16 08:00 96.1 120 20 83/58 93 04/10/16 07:14 18 04/10/16 04:00 Room Air 21 04/10/16 04:00 97.1 125 16 81/65 98 04/10/16 00:00 97.7 120 16 81/66 95 04/09/16 20:35 18 04/09/16 20:00 97.6 75 18 79/63 96 04/09/16 16:00 96.4 123 20 85/63 93 04/09/16 12:00 98.7 129 20 82/60 95 Physical Exam CONSTITUTIONAL/GENERAL: Very cachectic, frail-appearing patient. Temporal wasting evident. Awake, cooperative, pleasant TUBES/LINES/DRAINS: Peripheral IV upper extremity. CARDIOVASCULAR: Regular rate and rhythm. No peripheral edema observed. RESPIRATORY/CHEST: Symmetric respirations, slightly short of breath with any movement in bed. On room air. GI/: Abdomen round, distended, mildly tender. MUSCULOSKELETAL: Extremities without clubbing, cyanosis, or edema. Extremities extremely thin with significant muscle atrophy 4. NEUROLOGICAL: Awake and alert-oriented x2-3. Appears to have reasonable insight. Moves all 4 extremities. PSYCHIATRIC: No obvious anxiety/depression. no apparent hallucinations or other psychotic thought process. . Diagnostic Tests Result Diagram: 04/07/16 0554 Procedures 03/27CT-guided biopsy. 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 Supported by his father, as well as a close friend named Brodie. 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 Not , no children. Spiritual: Orthodoxy per [facility] Legal:Patient appears to be fairly oriented and appropriate though difficult to fully assess insight. Affect is withdrawn and very limited engagement--appears to have some behavioral/personality component to his behavior/interaction. Appears he may be able to make his own decisions. Not , no children. Appears per [place] statutes his father would be legal decision maker if he were to become incapacitated. I attempt to explore health care surrogate designation with him he indicates he would want his father called in the case of an emergency Ethical issues impacting care: Important Contacts Bhavik Hernandez (father) [phone] Brodie Arjun (friend) [phone] . Prognosis Patient is cachectic, with significant unintentional weight loss. Suspected underlying malignancy --CT-guided abdominal biopsy indicative of biphasic mesothelioma. Poor performance status, frail underlying condition, patient could consider seeking treatment at [facility] versus palliative chemotherapy locally , or comfort measures would be appropriate. . Code Status: No Code Plan * Legal decision maker:Patient appears to be fairly oriented and appropriate though difficult to fully assess insight. Affect is withdrawn and very limited engagement--appears to have some behavioral/personality component to his behavior/interaction. Appears he may be able to make his own decisions. Not , no children. Appears per [place] statutes his father would be legal decision maker if he were to become incapacitated. I attempt to explore health care surrogate designation with him he indicates he would want his father called in the case of an emergency * Goals: Patient continues to vacillate on enrolling in hospice versus staying in the hospital and continue to research his options. He has repeatedly indicated he has been leaning towards hospice and comfort measures only. His father has been supportive of this. He wants more time to make a decision. Discharge planning is in process as patient has not been undergoing any further ongoing medical treatments and does not need acute hospitalization. I have spoken with his father today during bedside interaction with patient, his father remains supportive and encouraging of hospice enrollment however patient refuses to discuss further. Patient is going to talk with his father in private later. Not clear he will make any decisions today though he has been advised that he will be discharged home with home health and he can make further decisions in the home setting should he desire. * CODE STATUS: DNR * SYMPTOMS: --Ascites-? Etiology, likely malignancy. Pathology + mesothelioma. Ongoing ascites for the past several months requiring frequent paracentesis for large amount of volume most recently. Status post IR placement of drainage catheter catheter for frequent drainage --Dyspnea -patient denies any dyspnea. indicates has been fine since the paracentesis and that is not his primary concern. comfortable on Rm air. We'll continue to monitor. --Paindenies abdominal pain, has had some but has improved since paracentesis. primary pain is "at the back of his throat going through to his spine "-- this pain is "much better today" and in the past few days. Has prn medications [place], morphine--hydromorphone has been added Which he indicates is currently effective. Could consider up titration of opiates for pain relief if prn use ineffective, though appears effective at this time. Will cont to evaluate --Malnutrition-albumin 1.9. Patient extremely frail, cachectic. Unintentional weight loss of around 40-50 pounds. Poor oral intake secondary to pain and nausea.denies nausea, recently indicates swallowing is improved. Likely 2/2 malignancy. * Palliative care will continue to follow during hospital course as condition evolves, to assist patient/decision-maker with understanding of medical conditions, weighing benefits/burdens of treatment options, for clarification of goals of treatment. Additionally will assist with any symptoms of palliative concern Time Spent Total Floor Time (mins): 30 >50% Counseling/Coord of Care: Yes (discussion with case management, hospice admissions, medical attending) Attestation To help prompt me to consider important information that might be impacting today's encounter and assessment, information from prior notes written by myself or my colleagues may have been "brought forward" into today's note. My signature on this note, however, is an attestation that I personally performed the exam, history, and/or decision-making noted today, and, unless otherwise indicated, the interactions with patient, family, and staff as well as the review of records all occurred today. I also attest that the listed assessment and stated plan reflect my best clinical judgment today based on the combination of historical information, prior notes, and today's exam/ interactions. When time spent is documented, it refers only to time spent today by the signer, or if indicated, combined time spent today by collaborating physician/nurse practitioner. Raisa Garrett Apr 10, 2016 11:27
[2016-04-10 12:00] VITALS: BP 88/66; PULSE 121; RESP 20; TEMP 97.7; O2SAT 97
--- NOTE | 2016-04-10 14:35 | PD.ONC.PN ---
Subjective Subjective Remarks Feels better after another paracentesis. Objective Data Date Time Temp Pulse Resp B/P Pulse Ox O2 Delivery O2 Flow Rate FiO2 04/10/16 12:00 97.7 121 20 88/66 97 04/10/16 10:05 Room Air 04/10/16 08:00 96.1 120 20 83/58 93 04/10/16 07:14 18 04/10/16 04:00 Room Air 21 04/10/16 04:00 97.1 125 16 81/65 98 04/10/16 00:00 97.7 120 16 81/66 95 04/09/16 20:35 18 04/09/16 20:00 97.6 75 18 79/63 96 04/09/16 16:00 96.4 123 20 85/63 93 Result Diagram: 04/07/16 0554 Administered Medications Medications (Trade) Dose Ordered Sig/Maude Route PRN Reason Start Time Stop Time Status Last Admin Dose Admin IV Flush (NS Flush) 2 ml UNSCH PRN FLUSH FLUSH AFTER USING IV ACCESS 03/25/16 18:30 04/09/16 00:46 IV Flush (NS Flush) 2 ml BID FLUSH 03/25/16 21:00 04/10/16 09:56 Ondansetron HCl (Zofran Inj) 4 mg Q6H PRN IVP NAUSEA OR VOMITING 03/25/16 18:30 04/09/16 21:22 Prochlorperazine (Compazine Supp) 25 mg Q12H PRN [place] NAUSEA OR VOMITING 03/25/16 18:30 04/07/16 20:56 Lidocaine/ Diphenhydr/Alum/ Mg/Simeth (Magic Mouthwash Pediatric/Adult Liq) 5 ml ACHS SWISH-SWAL 03/26/16 11:00 04/10/16 10:04 Cyclobenzaprine HCl (Flexeril) 5 mg Q8HR PO 03/28/16 14:00 04/10/16 13:24 Calcium Carbonate (Tums Chew) 500 mg Q12HR CHEW 03/29/16 09:00 04/10/16 09:55 Magnesium Oxide (Mag-Ox) 400 mg DAILY PO 03/29/16 09:00 04/10/16 09:56 Lidocaine HCl (Lidoderm 5% Patch.12 Hr) 1 patch DAILY TD 03/29/16 09:00 04/10/16 09:55 Miscellaneous Information 1 HS TD 03/29/16 21:00 04/08/16 21:00 Dronabinol (Marinol) 2.5 mg BID@11,16 PO 03/29/16 16:00 04/10/16 10:04 Acetaminophen/ Hydrocodone Bitart (Revelo 10-325 Mg) 1 tab Q6H PRN PO pain 1-10 03/31/16 11:15 04/10/16 02:44 Folic Acid (Folate) 1 mg DAILY PO 03/31/16 11:30 04/10/16 09:56 Prochlorperazine Edisylate (Compazine Inj) 10 mg Q6H PRN IM nausea 04/05/16 21:00 04/06/16 08:39 Tamsulosin HCl (Flomax) 0.4 mg DAILY PO 04/07/16 09:00 04/10/16 09:56 Hydromorphone HCl (Dilaudid Pf Inj) 0.5 mg Q3HR PRN IV PUSH PAIN 6-10 04/09/16 11:00 04/10/16 13:24 Objective Remarks GENERAL: Cachectic, very weak SKIN: Warm and dry. HEAD: Normocephalic. EYES: No scleral icterus. No injection or drainage. NECK: Supple, trachea midline. No JVD or lymphadenopathy. LYMPHATIC: No adenopathy. CARDIOVASCULAR: Regular rate and rhythm without murmurs. RESPIRATORY: Breath sounds equal bilaterally. No accessory muscle use. GASTROINTESTINAL: Abdomen softer, catheter noted in RLQ. EXTREMITIES: No cyanosis, or edema. MUSCULOSKELETAL: Adequate muscle tone. NEUROLOGICAL: No obvious focal deficit. Awake, alert, and oriented x3. PSYCHIATRIC: Appropriate mood and affect; insight and judgment normal. Assessment/Plan Problem List: (1) Mesothelioma, malignant Status: Acute Plan: 04/10/16: s/p paracentesis with drainage of 10L fluid and placement of peritoneal catheter. 04/09/16: clear for discharge. continue supportive care. 04/05/16: patient still pondering his options. He is clear for discharge home. He wants hospice care and does nto want to make a decision yet. Abdomen more distended. He is going to have another paracentesis. --palliative care following. patient is leaning toward hospice. on 04/01/16 patient had meeting with hospice but has not enrolled with hospice yet --CT chest -- no mets --EGD showed ulcer, gastritis, esophagitis. --Colonoscopy was a poor prep but no obvious mass noted. --He left against medical advice the last time he was here. He now re- presented with increased shortness of breath and tense ascites. --had another paracentesis and removal of 16 liters of clear yellow fluid 03/26. --03/31/16 paracentesis with removal >18L. The pt was told of his diagnosis of malignant mesothelioma. extensive discussion with patient and his father at the bedside. treatment options reviewed. patient stated that he is always against chemotherapy and he does not think he would consider chemotherapy. He would like to pursue alternative medicine. At this time, he is leaning towards hospice for comfort care but he wants more time to think about it. (2) Malnutrition Status: Acute Plan: --continue nutritional support Assessment 55y/o male with malignant mesothelioma (biphasic type) diagnosed in 02/2016. --has had recurrent ascites since September 2015. Plan 1. clear for d/c, await hospice placement. 2. continue supportive care Kane Calix MD Apr 10, 2016 14:35
[2016-04-10 16:00] VITALS: BP 89/64; PULSE 123; RESP 20; TEMP 97.2; O2SAT 95
--- NOTE | 2016-04-10 19:15 | HHI.DS ---
Discharge Summary Admission Date Mar 25, 2016 at 18:28 Discharge Date: Apr 10, 2016 Admitting Diagnosis dyspnea, hyperkalemia,ARF, ascites (1) Severe sepsis ICD Code: A41.9 Diagnosis: Principal (2) Hyponatremia ICD Code: E87.1 Diagnosis: Secondary (3) Hyperkalemia ICD Code: E87.5 Diagnosis: Secondary (4) Increased anion gap metabolic acidosis ICD Code: E87.2 Diagnosis: Secondary (5) CHELY (acute kidney injury) ICD Code: N17.9 Diagnosis: Secondary (6) Thrombocytosis ICD Code: D47.3 Diagnosis: Secondary (7) Hypoglycemia ICD Code: E16.2 Diagnosis: Secondary (8) Severe protein-calorie malnutrition ICD Code: E43 Diagnosis: Secondary (9) Hematemesis ICD Code: K92.0 Diagnosis: Secondary Procedures -repeated paracentesis 03/25, 04/05 -CT guided biopsy of omentum by IR 03/28/16. abdominal IP catheter placement 04/09 Brief History - From Admission This is a 55-year-old male with past medical history of ascites for which he has gotten multiple ultrasound-guided paracentesis with drainage of large amount of ascites for about the past 6 months. He was just discharged March 14 (admitted on 03/07) from the hospital where a diagnostic paracentesis was performed showing atypical cells which appeared to represent reactive mesothelial cells. The patient presented to the emergency department via EMS complaining of shortness of breath and increasing abdominal girth. His symptoms have been getting progressively worse over the last week and haven't been accompanied by nausea and vomiting. He is complaining of severe pain but states it is located in his back in the middle region that is associated with increasing abdominal girth. The underlying source of his malignant ascites has not been determined yet. While visiting the patient, he had an episode of vomiting when small amount of dark blood noted in his emesis. He complains of nausea, vomiting, back pain, severe abdominal distention accompanied by shortness of breath. He denies fever and also denies diarrhea though the nurse in the ER tells us that he had episodes of diarrhea since arriving here. He is significantly hypotensive in the ER with a blood pressure of 77/52 requiring IV albumin and fluids. He is also tachycardic and WBC is elevated at 18.8 with neutrophilia. Lactic acid elevated at 3.1. Potassium 6.6 on admission and sodium is low at 126. Anion gap is elevated at 16 and he shows acute kidney injury with BUN of 71, creatinine 1.95, estimated GFR 36. Hypoglycemia noted with glucose initially 58 and 48 on repeat BMP. Patient BNP 1846. CBC/BMP: 04/07/16 0554 Imaging Last Impressions Catheter Placement X-Ray 04/09/16 0000 Signed Impressions: Service Date/Time: Saturday, April 09, 2016 13:05 - CONCLUSION: Uncomplicated paracentesis. Timbo Hill MD Cyst Biopsy Asp-Paracentesis US 04/05/16 0800 Signed Impressions: Service Date/Time: Tuesday, April 05, 2016 10:50 - CONCLUSION: Uncomplicated ultrasound guided paracentesis. Patient received albumin per protocol. Kaleb White MD FACR Abdomen Biopsy CT 03/27/16 0000 Signed Impressions: Service Date/Time: February 12:02 - CONCLUSION: Uncomplicated CT guided biopsy of a focal soft tissue density on the right peritoneum.. Alonso Oneil MD Chest X-Ray 03/25/16 1718 Signed Impressions: Service Date/Time: Friday, March 25, 2016 17:34 - CONCLUSION: Almost complete resolution of the previously seen the right lung base consolidation. K. Crispin Tipton MD PE at Discharge awake and alert, oriented x 3 cachectic looking anicteric no rales, no wheezes abdomen--abdominal catheter in place- site clean right ischial wounds- extremities no edema Pt update on day of discharge awake and alert not in any distress very appreciative of care he is receiving here Hospital Course This is a 55-year-old male with past medical history of ascites for which he has gotten multiple ultrasound-guided paracentesis with drainage of large amount of ascites for about the past 6 months. He is here for worsening ascites and shortness of breath and had significant hypotension in the ER with a blood pressure of 77/52 requiring IV albumin and fluids. He is also tachycardic and WBC is elevated at 18.8 with neutrophilia. Lactic acid elevated at 3.1. Potassium 6.6 on admission and sodium is low at 126. Anion gap is elevated at 16 and he shows acute kidney injury with BUN of 71, creatinine 1.95, estimated GFR 36. Hypoglycemia noted with glucose initially 58 and 48 on repeat BMP. Patient BNP 1846. He is notably cachectic with bitemporal wasting and has a low albumin 1.9. S/P Severe sepsis - UTI vs SBP S/P course of Ceftriaxone 04/05 Metabolic acidosis resolved Hypotension- patient with no effective circulating volume due to 3rd spacing Buttocks with pressure wounds, present on admission. Stage 2 pressure injury to sacrum that is resolving. Also stage 4 left ischium pressure injury. Has right upper thigh between hip and ischium skin loss not pressure related. wound care nurse, following. seen 04/09 Cleanse wounds with NS and apply xerofoam single layer and dry cover daily - Blood cultures 2 and urine culture negative Recurrent Ascites - S/P Ultrasound-guided abdominal paracentesis with removal if 16L, repeat paracentesis 04/05 12,700 cc out S/P abdominal IP catheter placement 04/09. Drain periodically or if patient feel distended- spoke with IR nurse to educate patient on how to drain catheter Mesenteric mesothelioma MRI reviewed shows nodularity of the peritoneum with possible omental thickening. CA 15-3 and CA -[address] CT chest no evidence of metastatic disease EGD recent last admission showed ulcer gastritis, esophagitis Colonoscopy recent last admission poor prep however no obvious mass Note patient left AMA last admission and was a plan for biopsy. Patient with anorexia, severe protein beverley malnutrition likely has underlying malignancy. -marinol for anorexia GI consulted will hold on any intervention, doesn't plan for colonoscopy Hem/onc Dr Yogi castañeda DC to Hospice care center- if patient agrees Back pain- Acute prn pain meds Will d/w patient with CM- per CM- Hospice care center candidate- Pt Condition on Discharge: Stable Discharge Disposition: Hospice/Med Facility Discharge Time: <= 30 minutes Discharge Instructions DIET: Follow Instructions for: As Tolerated, No Restrictions Speech Therapy-Diet Recommends: Regular Activities you can perform: Weight Bearing as Eric Activities to Avoid: Strenuous Activity Medication Profile: No Active Prescriptions or Reported Meds Clifton Villalba MD Apr 10, 2016 19:15
[2016-04-10 20:00] VITALS: BP 71/51; PULSE 123; RESP 16; TEMP 96.8; O2SAT 98
== END 2016-04-10 20:40 | disposition hospice, inpatient (51) | DRG 871 ==
LOC: NEPA 17:09 → NEDA 18:28 → HIMN 23:10 → HOCA 03-30 12:23
PROVIDERS: ADMIT Hospitalist; ATTEND Internal Medicine
PROC: 0W9G3ZZ Drainage of Peritoneal Cavity, Percutaneous Approach (ICD-10-PCS; 2016-03-26)
PROC: 0DBW3ZX Excision of Peritoneum, Percutaneous Approach, Diagnostic (ICD-10-PCS; principal; 2016-03-28)
PROC: 0W9G3ZZ Drainage of Peritoneal Cavity, Percutaneous Approach (ICD-10-PCS; 2016-03-31)
PROC: 0W9G3ZZ Drainage of Peritoneal Cavity, Percutaneous Approach (ICD-10-PCS; 2016-04-05)
PROC: 0T9B70Z Drainage of Bladder with Drainage Device, Via Natural or Artificial Opening (ICD-10-PCS; 2016-04-07)
PROC: 0W9G30Z Drainage of Peritoneal Cavity with Drainage Device, Percutaneous Approach (ICD-10-PCS; 2016-04-09)
DX: A41.9 Sepsis, unspecified organism (principal); L89.324 Pressure ulcer of left buttock, stage 4; R18.0 Malignant ascites; E43 Unspecified severe protein-calorie malnutrition; K92.0 Hematemesis; N17.9 Acute kidney failure, unspecified; R64 Cachexia; E87.2 Acidosis; K65.2 Spontaneous bacterial peritonitis; C45.1 Mesothelioma of peritoneum; E87.1 Hypo-osmolality and hyponatremia; N39.0 Urinary tract infection, site not specified; L89.152 Pressure ulcer of sacral region, stage 2; E86.0 Dehydration; E87.5 Hyperkalemia; Z68.21 Body mass index [BMI] 21.0-21.9, adult; E16.2 Hypoglycemia, unspecified; F17.210 Nicotine dependence, cigarettes, uncomplicated; R65.20 Severe sepsis without septic shock; R63.0 Anorexia; D47.3 Essential (hemorrhagic) thrombocythemia; R33.9 Retention of urine, unspecified; Z51.5 Encounter for palliative care; Z66 Do not resuscitate; K21.0 Gastro-esophageal reflux disease with esophagitis; K26.9 Duodenal ulcer, unspecified as acute or chronic, without hemorrhage or perforation; K29.70 Gastritis, unspecified, without bleeding; K44.9 Diaphragmatic hernia without obstruction or gangrene
CPT/HCPCS: 49083; 49180; 71010; 76937; 77012; 80048; 80053; 80202; 81001; 82042; 82140; 82150; 82565; 82945; 83605; 83615; 83690; 83735; 83880; 84155; 84157; 85007; 85014; 85018; 85025; 85027; 85610; 85730; 87040; 87070; 87086; 87205; 87493; 87641; 88305; 88341; 89051; 93005; 96374; 99144; 99152; C1729; C1769; J0610; J0696; J0780; J1170; J1815; J1940; J2250; J2270; J2405; J3010; J3370; J3420; J7030; J7040; J7042; J7050; P9047; Q0167